=== PATIENT | male | born 1975 | race Caucasian/White ===

== ENCOUNTER 2019-03-23 02:21 | Inpatient (IN) | payer MEDICAID ==
[~2019-03-23] VITALS: Ht 177.8 cm; Wt 63.5 kg
--- NOTE | 2019-03-23 02:30 | NUR ---
ED Nurse Note: Pt walked in c/o diarrhea x 4 days, also reports bright red bleeding in stool. AO4. NAD. HYPOTENSIVE 91/56
--- NOTE | 2019-03-23 02:40 | NUR ---
ED Nurse Note: IV ACCESS ESTABLISHED. BLOOD COLLECTED; SENT DOWN TO LAB.
--- NOTE | 2019-03-23 02:46 | Emergency Room Report ---
History of Present Illness General Chief Complaint: Diarrhea Source: Patient Present Illness HPI This a 44-year-old male with a history of chronic hepatitis and HIV. He is not on any HIV medication. Does not know his CD4 count or viral load. He presents with chief complaint of diarrhea. Onset for last 4 days. Diarrhea is profuse. Initially watery and now bloody. Has abdominal cramps. No nausea no vomiting. Said he had a fever yesterday 102. No sick contact. No recent antibiotics or travel. Allergies: Coded Allergies: No Known Allergies (Unverified , 03/23/19) Patient History Past Medical History: see triage record, old chart reviewed, HIV Past Surgical History: other Pertinent Family History: none Social History: Denies: smoking Immunizations: other Reviewed Nursing Documentation: PMH: Agreed; PSxH: Agreed Nursing Documentation-PMH Past Medical History: No History, Except For Hx Cardiac Problems: No - HIV & HEP B Review of Systems Constitutional: Reports: fever Eye: Denies: eye pain, blurred vision ENT: Denies: ear pain, nose congestion, throat swelling Respiratory: Denies: cough, shortness of breath Cardiovascular: Denies: chest pain, palpitations Gastrointestinal: Reports: diarrhea; Denies: abdominal pain, nausea, vomiting Musculoskeletal: Denies: back pain, joint pain Skin: Denies: rash Neurological: Denies: headache, numbness Endocrine: Denies: increased thirst, increased urine Hematologic/Lymphatic: Denies: easy bruising All Other Systems: negative except mentioned in HPI Physical Exam Vital Signs Date Time Temp Pulse Resp B/P (MAP) Pulse Ox O2 Delivery O2 Flow Rate FiO2 03/23/19 02:27 97.5 95 18 96/62 (73) 95 Room Air Vitals with mild hypotension Sp02 EP Interpretation: reviewed, normal General Appearance: no apparent distress, alert, thin Head: normocephalic, atraumatic Eyes: bilateral eye PERRL, bilateral eye EOMI ENT: hearing grossly normal, normal pharynx Neck: full range of motion, supple, no meningismus Respiratory: chest non-tender, lungs clear, normal breath sounds Cardiovascular #1: regular rate, rhythm, no murmur Gastrointestinal: non tender, no mass, no organomegaly, no bruit, non-distended , abnormal bowel sounds - Hyperactive Genitourinary: other - Penis with balanitis Musculoskeletal: back normal, gait/station normal, normal range of motion Psychiatric: mood/affect normal Medical Decision Making Diagnostic Impression: Primary Impression: Diarrhea Qualified Codes: R19.7 - Diarrhea, unspecified Additional Impressions: ARF (acute renal failure) Qualified Codes: N17.9 - Acute kidney failure, unspecified Hypokalemia Hepatitis Balanitis ER Course This is a 44-year-old male who presents with profuse diarrhea and reported fever. Because of his weakened immune system, will treat as presumptive infectious diarrhea. I put him on antibiotics. The diarrhea is probably causing his hypokalemia. Patient better after IV fluid. Will admit for further work-up. I contacted Dr. Flores for admission. Last Vital Signs Date Time Temp Pulse Resp B/P (MAP) Pulse Ox O2 Delivery O2 Flow Rate FiO2 03/23/19 02:27 97.5 95 18 96/62 (73) 95 Room Air Status: improved Disposition: ADMITTED INPATIENT Condition: Serious Alvaro Singh MD Mar 23, 2019 02:46
[2019-03-23 03:02] VITALS: BP 91/56
--- NOTE | 2019-03-23 03:04 | NUR ---
ED Nurse Note: reportr eceived from Emerson Taylor RN. pt unable to urinate at this time, will notify Staff when he is ready to provide urine sample.
--- NOTE | 2019-03-23 03:04 | NUR ---
HAND-OFF: Report given to PONCHO LEAL. PATIENT RESTING COMFORTABLY IN BED WITH NAD. REMAINS HYPOTENSIVE BUT ASYMPTOMATIC. AO4. RESPIRATIONS EVEN AND UNLABORED. ENDORSED PENDING LABS TO RECEIVING RN; WAITING FOR PT TO PROVIDE URINE SAMPLE.
[2019-03-23 03:11] LABS: BASOPHILS % (AUTO) 0.8 % (0.0-2.0); EOSINOPHILS % (AUTO) 0.3 % (0.0-3.0); HEMATOCRIT 45.2 % (42.0-52.0); HEMOGLOBIN 14.9 G/DL (14.2-18.0); LYMPHOCYTES % (AUTO) 17.5 % (20.0-45.0); MEAN CORPUSCULAR VOLUME 75 FL (80-99); MONOCYTES % (AUTO) 12.1 % (1.0-10.0); NEUTROPHILS % (AUTO) 69.4 % (45.0-75.0); PLATELET COUNT 290 K/UL (150-450); RED BLOOD COUNT 6.04 M/UL (4.70-6.10); RED CELL DISTRIBUTION WIDTH 12.9 % (11.6-14.8); WHITE BLOOD COUNT 6.2 K/UL (4.8-10.8)
[2019-03-23 03:28] LABS: ALANINE AMINOTRANSFERASE 91 U/L (12-78); ALBUMIN 2.8 G/DL (3.4-5.0); ALBUMIN/GLOBULIN RATIO 0.4 (1.0-2.7); ALKALINE PHOSPHATASE 113 U/L (46-116); ANION GAP 15 mmol/L (5-15); ASPARTATE AMINO TRANSFERASE 81 U/L (15-37); BILIRUBIN,TOTAL 0.5 MG/DL (0.2-1.0); BLOOD UREA NITROGEN 28 mg/dL (7-18); CALCIUM 8.5 MG/DL (8.5-10.1); CARBON DIOXIDE 23 MMOL/L (21-32); CHLORIDE 96 MMOL/L (98-107); CREATININE 2.3 MG/DL (0.55-1.30); SODIUM 133 MMOL/L (136-145)
[2019-03-23 04:06] LABS: POTASSIUM 2.1 MMOL/L (3.5-5.1)
[2019-03-23 04:27] LABS: APPEARANCE,URINE CLEAR; BILIRUBIN, URINE NEGATIVE (NEGATIVE); GLUCOSE, URINE (UA) NEGATIVE (NEGATIVE); KETONES,URINE NEGATIVE (NEGATIVE); LEUKOCYTE ESTERASE ,URINE 1+ (NEGATIVE); NITRITE,URINE NEGATIVE (NEGATIVE); PH,URINE 5 (4.5-8.0); PROTEIN,URINE 2+ (NEGATIVE); UROBILINOGEN,URINE NORMAL MG/DL (0.0-1.0)
[2019-03-23 04:30] LABS: COLOR,URINE YELLOW
[2019-03-23] MEDS ORDERED: Ciprofloxacin 500mg tab ORAL ONE (04:45)
--- NOTE | 2019-03-23 05:30 | NUR ---
ED Nurse Note: pt was brought up to 203 accompanied by RN and automotive maintenance technician in stable condition. belonging list signed. Report given to PONCHO acosta
--- NOTE | 2019-03-23 05:35 | NUR ---
NURSE NOTES: Received report from PONCHO Munoz. Patient was transferred from ED to telemetry via gurney without any incident. Patient is awake, coherent, A/O x4. Denies pain at this time. No signs of acute cardiorespiratory distress noted. Checked IV site intact and patent. No erythema, bleeding or infiltration noted. Skin is intact and moist. Tele box on showing SR with latest vital signs of T98.2, HR73, RR18, BP95/57, O2 sat 100% on RA. Belongings list checked with transferring RN. Oriented to room and unit. Bed at lowest position, brakes on, siderails x 2. Call light within reach. Called Dr. Villatoro for admission orders. Awaiting callback.
--- NOTE | 2019-03-23 06:30 | NUR ---
NURSE NOTES: Received admission orders from Dr. Villatoro, noted and carried out.
--- NOTE | 2019-03-23 07:20 | NUR ---
HAND-OFF: Report given to PONCHO Wong. Plan of care endorsed.
[2019-03-23 08:00] VITALS: BP 94/54
--- NOTE | 2019-03-23 08:26 | NUR ---
NURSE NOTES:Received report from PONCHO Brandon. Patient found aox4 breathing easily on RA and NSR on telemetry. Patient finished bag of flaygyl at change of shift. Ptient oob to walk to toilet steadygait noted. NPO status (ice chip/meds allowed) in effect. Patient unawre of NPO status--informed that Dr ordered npo for his diarrhea unkown cause. Ptient stated "that's ridiculous. Florencia been in the hospital with parasites before adn I could always eat." Offered ice chips. Starting IVF with K per SEP. Cdiff to be collected when sample available. Concern for SBP in 90s, dr aware adn patient monitiored closely. Contact precautions in place for safety/pending labs Arm band placed on patient and care plan updated to include dehyd and electrolyte imbalance. Call seth in reach (instructed in use) and urinal in reach. Hat in toilet for stool collection. Bed in lowest, locked position.
[2019-03-23 08:56] LABS: HEMATOCRIT 35.4 % (42.0-52.0); HEMOGLOBIN 11.6 G/DL (14.2-18.0); MEAN CORPUSCULAR VOLUME 74 FL (80-99); PLATELET COUNT 211 K/UL (150-450); RED BLOOD COUNT 4.76 M/UL (4.70-6.10); WHITE BLOOD COUNT 3.3 K/UL (4.8-10.8)
[2019-03-23] MEDS: Acetaminophen 500mg (ES) tab ORAL PRN ×2 (09:23→16:03)
--- NOTE | 2019-03-23 09:33 | Consultation ---
History of Present Illness General Chief Complaint: Diarrhea Present Illness Allergies: Coded Allergies: No Known Allergies (Unverified , 03/23/19) Patient History Healthcare decision maker Resuscitation status Advanced Directive on File Physical Exam Last 24 Hour Vital Signs Date Time Temp Pulse Resp B/P (MAP) Pulse Ox O2 Delivery O2 Flow Rate FiO2 03/23/19 08:00 98.3 70 18 94/54 (67) 98 03/23/19 05:30 98.0 76 18 92/70 98 Room Air 03/23/19 03:02 97.5 78 18 91/56 100 Room Air 03/23/19 02:27 97.5 95 18 96/62 (73) 95 Room Air Intake and Output 03/22/19 03/23/19 18:59 06:59 Intake Total 3240 ml Balance 3240 ml Intake Oral 240 ml IV Total 3000 ml # Voids 1 Laboratory Tests Test 03/23/19 02:46 03/23/19 03:59 03/23/19 08:30 White Blood Count 6.2 K/UL (4.8-10.8) 3.3 K/UL (4.8-10.8) L Red Blood Count 6.04 M/UL (4.70-6.10) 4.76 M/UL (4.70-6.10) Hemoglobin 14.9 G/DL (14.2-18.0) 11.6 G/DL (14.2-18.0) L Hematocrit 45.2 % (42.0-52.0) 35.4 % (42.0-52.0) L Mean Corpuscular Volume 75 FL (80-99) L 74 FL (80-99) L Mean Corpuscular Hemoglobin 24.7 PG (27.0-31.0) L 24.4 PG (27.0-31.0) L Mean Corpuscular Hemoglobin Concent 33.0 G/DL (32.0-36.0) 32.8 G/DL (32.0-36.0) Red Cell Distribution Width 12.9 % (11.6-14.8) 13.0 % (11.6-14.8) Platelet Count 290 K/UL (150-450) 211 K/UL (150-450) Mean Platelet Volume 5.2 FL (6.5-10.1) L 5.2 FL (6.5-10.1) L Neutrophils (%) (Auto) 69.4 % (45.0-75.0) % (45.0-75.0) Lymphocytes (%) (Auto) 17.5 % (20.0-45.0) L % (20.0-45.0) Monocytes (%) (Auto) 12.1 % (1.0-10.0) H % (1.0-10.0) Eosinophils (%) (Auto) 0.3 % (0.0-3.0) % (0.0-3.0) Basophils (%) (Auto) 0.8 % (0.0-2.0) % (0.0-2.0) Sodium Level 133 MMOL/L (136-145) L Pending Potassium Level 2.1 MMOL/L (3.5-5.1) *L Pending Chloride Level 96 MMOL/L (98-107) L Pending Carbon Dioxide Level 23 MMOL/L (21-32) Pending Anion Gap 15 mmol/L (5-15) Blood Urea Nitrogen 28 mg/dL (7-18) H Pending Creatinine 2.3 MG/DL (0.55-1.30) H Pending Estimat Glomerular Filtration Rate 31.2 mL/min (>60) Pending Glucose Level 115 MG/DL (74-106) H Pending Lactic Acid Level 1.90 mmol/L (0.4-2.0) Calcium Level 8.5 MG/DL (8.5-10.1) Pending Total Bilirubin 0.5 MG/DL (0.2-1.0) Pending Aspartate Amino Transf (AST/SGOT) 81 U/L (15-37) H Pending Alanine Aminotransferase (ALT/SGPT) 91 U/L (12-78) H Pending Alkaline Phosphatase 113 U/L (46-116) Pending Total Protein 9.3 G/DL (6.4-8.2) H Pending Albumin 2.8 G/DL (3.4-5.0) L Pending Globulin 6.5 g/dL Pending Albumin/Globulin Ratio 0.4 (1.0-2.7) L Lipase 496 U/L (73-393) H Urine Color Yellow Urine Appearance Clear Urine pH 5 (4.5-8.0) Urine Specific [place] 1.020 (1.005-1.035) Urine Protein 2+ (NEGATIVE) H Urine Glucose (UA) Negative (NEGATIVE) Urine Ketones Negative (NEGATIVE) Urine Blood Negative (NEGATIVE) Urine Nitrite Negative (NEGATIVE) Urine Bilirubin Negative (NEGATIVE) Urine Urobilinogen Normal MG/DL (0.0-1.0) Urine Leukocyte Esterase 1+ (NEGATIVE) H Urine RBC 0 /HPF (0 - 0) Urine WBC 2-4 /HPF (0 - 0) Urine Squamous Epithelial Cells Few /LPF (NONE/OCC) Urine Bacteria Few /HPF (NONE) Urine Opiates Screen Negative (NEGATIVE) Urine Barbiturates Screen Negative (NEGATIVE) Phencyclidine (PCP) Screen Negative (NEGATIVE) Urine Amphetamines Screen Positive (NEGATIVE) H Urine Benzodiazepines Screen Negative (NEGATIVE) Urine Cocaine Screen Negative (NEGATIVE) Urine Marijuana (THC) Screen Negative (NEGATIVE) Neutrophils % (Manual) Pending Lymphocytes % (Manual) Pending Platelet Estimate Pending Platelet Morphology Pending Uric Acid Pending Phosphorus Level Pending Magnesium Level Pending Iron Level Pending Unsaturated Iron Binding Pending Ferritin Pending C-Reactive Protein, Quantitative Pending Triglycerides Level Pending Cholesterol Level Pending LDL Cholesterol Pending HDL Cholesterol Pending Cholesterol/HDL Ratio Pending Vitamin B12 Level Pending Folate Pending Microbiology Date/Time Source Procedure Growth Status 03/23/19 05:00 Nasal Nares - Final Complete 03/23/19 05:00 Nasal Nares - Final Complete 03/23/19 05:00 Nasal Nares Received Height (Feet): 5 Height (Inches): 10.00 Weight (Pounds): 145 Medications Current Medications Medications (Trade) Dose Ordered Sig/Bessie Route PRN Reason Start Time Stop Time Status Last Admin Dose Admin Acetaminophen (Tylenol) 500 mg Q4H PRN ORAL Mild Pain/Temp > 100.5 03/23/19 07:00 04/22/19 06:59 Dextrose/ Electrolytes 1,000 ml @ 75 mls/hr [id number] IV 03/23/19 08:00 04/22/19 07:59 03/23/19 09:13 Assessment/Plan Assessment/Plan: Hematology Consultation ANN MURILLO: Rhonda Villatoro DOS: 03/23/19 RFC: Leukopenia and anemia ID This a 44-year-old male with a history of chronic hepatitis and HIV. He is not on any HIV medication. Does not know his CD4 count or viral load. He presents with chief complaint of diarrhea. Onset for last 4 days. Diarrhea is profuse. Initially watery and now bloody. Has abdominal cramps. No nausea no vomiting. Said he had a fever yesterday 102. No sick contact. No recent antibiotics or travel. Noted to have a decreased wbc and heme was consulted. All: No Known Allergies (Unverified , 03/23/19) Past Medical History: see triage record, old chart reviewed, HIV Past Surgical History: other Pertinent Family History: none Social History: Denies: smoking Immunizations: other Reviewed Nursing Documentation: PMH: Agreed; PSxH: Agreed Nursing Documentation-PMH Past Medical History: No History, Except For Hx Cardiac Problems: No - HIV & HEP B Review of Systems Constitutional: Reports: fever Eye: Denies: eye pain, blurred vision ENT: Denies: ear pain, nose congestion, throat swelling Respiratory: Denies: cough, shortness of breath Cardiovascular: Denies: chest pain, palpitations Gastrointestinal: Reports: diarrhea; No abdominal pain, nausea, vomiting Musculoskeletal: Denies: back pain, joint pain Skin: Denies: rash Neurological: Denies: headache, numbness Endocrine: Denies: increased thirst, increased urine Hematologic/Lymphatic: Denies: easy bruising Physical Exam Vitals with mild hypotension improved Gen: not in acute distress Pulm: CTAB CV: rrr, no mgr GI: nontender, nondistended MSKL normal rom Psychiatric: mood/affect normal Labs: noted Imaging: noted Assessment and Recs: # Leukopenia -- decreased wbc on admission, no historical studies to compare, likely due to hx hepatitis B and hiv as well, contributors --> trend as needed wbc 3.3 --> ANC goal is >1500 --> hepatitis and HIV have been ordered --> abd us ordered as well --> neupogen to be given on prn basis # Anemia due to chronic disease --> due to hep and hiv --> trend as needed 11 --> hold off on epo or iron # Diarrhea cause of low k --> r/o infectious causes, stool o&p ==> abx as needed per id # ARF (acute renal failure) --> on ivf as needed # Hypokalemia --> replete with K as needed # Balanitis --> uro recs prn Time of note does not correspond to time patient was seen Greatly appreciate consultation. Elian Kessler MD Mar 23, 2019 09:33
[2019-03-23 09:40] LABS: ALANINE AMINOTRANSFERASE 70 U/L (12-78); ALBUMIN 2.1 G/DL (3.4-5.0); ALBUMIN/GLOBULIN RATIO 0.4 (1.0-2.7); ALKALINE PHOSPHATASE 84 U/L (46-116); ANION GAP 12 mmol/L (5-15); ASPARTATE AMINO TRANSFERASE 60 U/L (15-37); BILIRUBIN,TOTAL 0.4 MG/DL (0.2-1.0); BLOOD UREA NITROGEN 25 mg/dL (7-18); CALCIUM 7.6 MG/DL (8.5-10.1); CARBON DIOXIDE 21 MMOL/L (21-32); CHLORIDE 102 MMOL/L (98-107); CHOLESTEROL 58 MG/DL (< 200); CREATININE 1.7 MG/DL (0.55-1.30); FERRITIN 202 NG/ML (8-388); HDL CHOLESTEROL 19 MG/DL (40-60); PHOSPHORUS 2.8 MG/DL (2.5-4.9); POTASSIUM 2.7 MMOL/L (3.5-5.1); SODIUM 135 MMOL/L (136-145); TRIGLYCERIDES 53 MG/DL (30-150)
[2019-03-23 09:54] LABS: % IRON SATURATION 11 % (15-50); IRON 14 ug/dL (50-175); TOTAL IRON BINDING CAPACITY 130 ug/dL (250-450)
--- NOTE | 2019-03-23 10:53 | GI Initial Consult Note ---
History of Present Illness General Date patient seen: Mar 23, 2019 Time patient seen: 10:47 Reason for Hospitalization: Diarrhea Referring physician: WILLY CASTRO Reason for Consultation: DIARRHEA Present Illness HPI This a 44-year-old male with a history of chronic hepatitis and HIV. He is not on any HIV medication. Does not know his CD4 count or viral load. He presents with chief complaint of diarrhea. Onset for last 4 days. Diarrhea is profuse. Initially watery and now bloody. Has abdominal cramps. No nausea no vomiting. Said he had a fever yesterday 102. No sick contact. No recent antibiotics or travel. GI consulted for persistent diarrhea. Patient seen, awake alert oriented x4 no apparent distress with no active signs or symptoms of nausea vomiting. Patient reports severe persistent diarrhea for approximately 3 days. At times patient noted that he saw streaks of blood in his stool. The patient denied any recurrent diarrhea over the past few months. He did admit a history of drug use , but stated he has been clean for years. Abdomen is soft, nondistended, nontender to all quadrants. Labs reviewed; sodium 135, potassium 2.7, iron saturation of 11, AST of 60, hemoglobin 11.6, urine toxicity positive for amphetamines. No history of endoscopic or colonoscopy. The patient denies any recent travels or dietary changes. Med list reviewed/reconciled: Yes Allergies: Coded Allergies: No Known Allergies (Unverified , 03/23/19) Patient History History Provided By: Patient, Medical Record PMH Narrative Past Medical History: see triage record, old chart reviewed, HIV Past Surgical History: other Pertinent Family History: none Social History: Denies: smoking Immunizations: other Reviewed Nursing Documentation: PMH: Agreed; PSxH: Agreed Nursing Documentation-PM Past Medical History: No History, Except For Hx Cardiac Problems: No - HIV & HEP B Social History: Reports: drug use Review of Systems All Other Systems: negative except mentioned in HPI Physical Exam Vital Signs Date Time Temp Pulse Resp B/P (MAP) Pulse Ox O2 Delivery O2 Flow Rate FiO2 03/23/19 02:27 97.5 95 18 96/62 (73) 95 Room Air Sp02 EP Interpretation: reviewed, normal Labs Laboratory Tests Test 03/23/19 00:00 03/23/19 02:46 03/23/19 03:59 03/23/19 08:30 HIV-1 Antibody Pending HIV-2 Antibody Pending White Blood Count 6.2 K/UL (4.8-10.8) 3.3 K/UL (4.8-10.8) L Red Blood Count 6.04 M/UL (4.70-6.10) 4.76 M/UL (4.70-6.10) Hemoglobin 14.9 G/DL (14.2-18.0) 11.6 G/DL (14.2-18.0) L Hematocrit 45.2 % (42.0-52.0) 35.4 % (42.0-52.0) L Mean Corpuscular Volume 75 FL (80-99) L 74 FL (80-99) L Mean Corpuscular Hemoglobin 24.7 PG (27.0-31.0) L 24.4 PG (27.0-31.0) L Mean Corpuscular Hemoglobin Concent 33.0 G/DL (32.0-36.0) 32.8 G/DL (32.0-36.0) Red Cell Distribution Width 12.9 % (11.6-14.8) 13.0 % (11.6-14.8) Platelet Count 290 K/UL (150-450) 211 K/UL (150-450) Mean Platelet Volume 5.2 FL (6.5-10.1) L 5.2 FL (6.5-10.1) L Neutrophils (%) (Auto) 69.4 % (45.0-75.0) % (45.0-75.0) Lymphocytes (%) (Auto) 17.5 % (20.0-45.0) L % (20.0-45.0) Monocytes (%) (Auto) 12.1 % (1.0-10.0) H % (1.0-10.0) Eosinophils (%) (Auto) 0.3 % (0.0-3.0) % (0.0-3.0) Basophils (%) (Auto) 0.8 % (0.0-2.0) % (0.0-2.0) Sodium Level 133 MMOL/L (136-145) L 135 MMOL/L (136-145) L Potassium Level 2.1 MMOL/L (3.5-5.1) *L 2.7 MMOL/L (3.5-5.1) *L Chloride Level 96 MMOL/L (98-107) L 102 MMOL/L (98-107) Carbon Dioxide Level 23 MMOL/L (21-32) 21 MMOL/L (21-32) Anion Gap 15 mmol/L (5-15) 12 mmol/L (5-15) Blood Urea Nitrogen 28 mg/dL (7-18) H 25 mg/dL (7-18) H Creatinine 2.3 MG/DL (0.55-1.30) H 1.7 MG/DL (0.55-1.30) H Estimat Glomerular Filtration Rate 31.2 mL/min (>60) 44.2 mL/min (>60) Glucose Level 115 MG/DL (74-106) H 108 MG/DL (74-106) H Lactic Acid Level 1.90 mmol/L (0.4-2.0) Calcium Level 8.5 MG/DL (8.5-10.1) 7.6 MG/DL (8.5-10.1) L Total Bilirubin 0.5 MG/DL (0.2-1.0) 0.4 MG/DL (0.2-1.0) Aspartate Amino Transf (AST/SGOT) 81 U/L (15-37) H 60 U/L (15-37) H Alanine Aminotransferase (ALT/SGPT) 91 U/L (12-78) H 70 U/L (12-78) Alkaline Phosphatase 113 U/L (46-116) 84 U/L (46-116) Total Protein 9.3 G/DL (6.4-8.2) H 7.0 G/DL (6.4-8.2) Albumin 2.8 G/DL (3.4-5.0) L 2.1 G/DL (3.4-5.0) L Globulin 6.5 g/dL 4.9 g/dL Albumin/Globulin Ratio 0.4 (1.0-2.7) L 0.4 (1.0-2.7) L Lipase 496 U/L (73-393) H Urine Color Yellow Urine Appearance Clear Urine pH 5 (4.5-8.0) Urine Specific [place] 1.020 (1.005-1.035) Urine Protein 2+ (NEGATIVE) H Urine Glucose (UA) Negative (NEGATIVE) Urine Ketones Negative (NEGATIVE) Urine Blood Negative (NEGATIVE) Urine Nitrite Negative (NEGATIVE) Urine Bilirubin Negative (NEGATIVE) Urine Urobilinogen Normal MG/DL (0.0-1.0) Urine Leukocyte Esterase 1+ (NEGATIVE) H Urine RBC 0 /HPF (0 - 0) Urine WBC 2-4 /HPF (0 - 0) Urine Squamous Epithelial Cells Few /LPF (NONE/OCC) Urine Bacteria Few /HPF (NONE) Urine Opiates Screen Negative (NEGATIVE) Urine Barbiturates Screen Negative (NEGATIVE) Phencyclidine (PCP) Screen Negative (NEGATIVE) Urine Amphetamines Screen Positive (NEGATIVE) H Urine Benzodiazepines Screen Negative (NEGATIVE) Urine Cocaine Screen Negative (NEGATIVE) Urine Marijuana (THC) Screen Negative (NEGATIVE) Differential Total Cells Counted 100 Neutrophils % (Manual) 59 % (45-75) Lymphocytes % (Manual) 24 % (20-45) Monocytes % (Manual) 15 % (1-10) H Eosinophils % (Manual) 1 % (0-3) Basophils % (Manual) 1 % (0-2) Band Neutrophils 0 % (0-8) Platelet Estimate Adequate Platelet Morphology Normal Anisocytosis 1+ Microcytosis 1+ Uric Acid 7.2 MG/DL (2.6-7.2) Phosphorus Level 2.8 MG/DL (2.5-4.9) Magnesium Level 2.0 MG/DL (1.8-2.4) Iron Level 14 ug/dL (50-175) L Total Iron Binding Capacity 130 ug/dL (250-450) L Percent Iron Saturation 11 % (15-50) L Unsaturated Iron Binding 116 ug/dL (112-346) Ferritin 202 NG/ML (8-388) C-Reactive Protein, Quantitative 12.3 mg/dL (0.00-0.90) H Triglycerides Level 53 MG/DL (30-150) Cholesterol Level 58 MG/DL (< 200) LDL Cholesterol 32 mg/dL (<100) HDL Cholesterol 19 MG/DL (40-60) L Cholesterol/HDL Ratio 3.1 (3.3-4.4) L Vitamin B12 Level 1723 PG/ML (193-986) H Folate 14.3 NG/ML (8.6-58.9) Hepatitis A IgM Antibody Pending Hepatitis B Surface Antigen Pending Hepatitis B Core IgM Antibody Pending Hepatitis C Antibody Pending HIV (1&2) Antibody Rapid Preliminary positive General Appearance: well appearing, no apparent distress, alert Head: normocephalic EENT: PERRL/EOMI, normal ENT inspection Neck: supple Respiratory: normal breath sounds, no respiratory distress Cardiovascular: normal rate Gastrointestinal: normal inspection, non tender, soft, normal bowel sounds, non -distended Rectal: deferred Genitourinary: deferred Musculoskeletal: normal inspection, back normal Neurologic: normal inspection, alert, oriented x3, responsive Psychiatric: normal inspection, judgement/insight normal, memory normal Skin: normal inspection, normal color, no rash, warm/dry, palpation normal, well hydrated Lymphatic: normal inspection, no adenopathy Current Medications Current Medications Medications (Trade) Dose Ordered Sig/Bessie Route PRN Reason Start Time Stop Time Status Last Admin Dose Admin Acetaminophen (Tylenol) 500 mg Q4H PRN ORAL Mild Pain/Temp > 100.5 03/23/19 07:00 04/22/19 06:59 Ciprofloxacin (Cipro 250mg tab) 250 mg EVERY 12 HOURS ORAL 03/23/19 21:00 03/30/19 20:59 Dextrose/ Electrolytes 1,000 ml @ 75 mls/hr [id number] IV 03/23/19 08:00 04/22/19 07:59 03/23/19 09:13 Metronidazole (Flagyl) 500 mg Q8HR ORAL 03/23/19 14:00 03/30/19 13:59 GI: Plan Problems: (1) Dehydration (2) Electrolyte imbalance (3) Amphetamine abuse (4) Diarrhea (5) Hepatitis Plan Urine toxicity positive for amphetamines Sent for C. difficile and stool culture Okay to advance diet as tolerated after US Electrolyte correction IV and p.o. hydration OB stool r/o GI bleed H2B zofran prn Will consider Imodium as needed after microbiology study follow labs Discussed with Dr. Fry. Thank you for this patient referral, we will follow. The patient was seen and examined at bedside and all new and available data was reviewed in the patients chart. I agree with the above findings, impression and plan. (Patient seen earlier today. Signature stamp does not reflect patient encounter time.). - MD Samantha HernandezWinslow Indian [facility] BREAD OVEN OPERATOR Mar 23, 2019 10:53
--- NOTE | 2019-03-23 11:31 | NUR ---
NURSE NOTES: Crit low potassium( 2.7 now, trended up from 2.1 at admit)--notified Dr Rushing in person for admit value (830am)adn then called & left message for f/u lab (10am see flowsheet). Dr Brown in room to assess patient--notifed of low potassium and received verbal confirmation to continue with IVF as ordered but hold off on giving any more potassium today to avoid overloading patient (in light of his receiving 70meq since ER). Cdiff adn culture sent for liquid stool. Dr Brown aware of patient report of occasional red color of stool. Result pending. Patient on cdiff precautions. Dr Brown advised patient to remain NPO until after Abd scan finished, after which time patient may be upgraded to regular diet. Addendum: 03/23/19 at 1139 by Osbaldo Levine RN 1130am: called rad and u/s dept to enquire estimated time of test but unable to reach. Previously received call that they were coming to do the scan. Patient remains NPO Addendum: 03/23/19 at 2021 by Osbaldo Levine RN Patient co burning with IV potassium administration to hand --new IV site obtained and rate slowed but patient continued to co pain with iv. Called Dr Sheridan office to ask for possible change to po, but did not want order changed and so cont'd with IV admin of potassium. No sign of redness or infiltration at either IV site with clean, dry, intact insertion sites. Ice and tylenol provided for pain control along with pillow supports. Luis Angel stated "I understand I need this, but I have had potassium before and it never hurt". Multiple checks on patient and patient was willing and able to tolerate the IV administration at slower rate. Called Dr Millan's office to inform that patient only able to tolerate rate of 50mls per hour (instead of ordered 100 mls per hour) even with dilution with MAR ordered IVFluids. This RN was told that if janett longer administration time was problematic, the Dr would call back to let us know. No call received and cont'd with administration. At 730pm (along with night RNLuiz,, entrered room to check patient and patient stated "I turned off the pumps, it was hurting too much" PONCHO Dee assumed care of patient.
--- NOTE | 2019-03-23 12:03 | NUR ---
RADIOLOGY DEPT., CHEST X-RAY DONE.-P.DYE
--- NOTE | 2019-03-23 13:04 | Diagnostic Imaging Report ---
Indication: Cough Technique: One view of the chest Comparison: none Findings: Lungs and pleural spaces are clear. Heart size is normal Impression: No acute process
--- NOTE | 2019-03-23 13:08 | Consultation ---
Consult Note Consult Note asked to evaluate the patient at the request of Dr Villatoro Patient seen in 2E- Interviewed examined data reviewed ER: This a 44-year-old male with a history of chronic hepatitis and HIV. He is not on any HIV medication. Does not know his CD4 count or viral load. He presents with chief complaint of diarrhea. Onset for last 4 days. Diarrhea is profuse. Initially watery and now bloody. Has abdominal cramps. No nausea no vomiting. Said he had a fever yesterday 102. No sick contact. No recent antibiotics or travel. No Known Allergies (Unverified , 03/23/19) Past Medical History: No History, Except For Hx Cardiac Problems: No - HIV & HEP B . . Assessment/Plan Acute Renal Failure- Dehydration Persistant Diarrhea HIV status and Hep B Electrolyte Imbalance urine + for amphetamins Hydrate- Aim to correct k and Phos and Mag Monitor renal parameters Avoid Nephrotoxics Per Orders Rob Millan MD Mar 23, 2019 13:08
--- NOTE | 2019-03-23 14:39 | Diagnostic Imaging Report ---
Indication: Abdominal pain, abnormal liver function tests and renal function tests Technique: Waterman-scale and duplex images of the upper abdomen were obtained Comparison: Findings: Gallbladder is unremarkable, without stones, wall thickening, nor pericholecystic fluid. Sonographic Celestin's sign is negative. Common bile duct measures 3 mm in diameter. No intrahepatic biliary ductal dilatation. Liver demonstrates normal echogenicity, no focal abnormality. It appears enlarged, however. Portal vein and hepatic veins are patent. Pancreas is unremarkable. The spleen is enlarged, measuring 14 cm long axis dimension. There is a small accessory splenule within the splenic hilum. Left kidney measures cm in length. Right kidney measures 11.4 cm length. Both kidneys demonstrate normal echogenicity. There is no hydronephrosis. Right kidney demonstrates an 11 mm cyst . Non-aneurysmal abdominal aorta . Impression: Negative for gallstones or dilated bile ducts Hepatomegaly Splenomegaly Small right renal cyst incidentally noted
--- NOTE | 2019-03-23 15:41 | NUR ---
CASE MANAGEMENT:REVIEW 44 YR OLD MALE PRESENTED TO ER CC: DIARRHEA WITH BRIGHT RED BLOOD SI: INFECTIOUS DIARRHEA BALANITIS. ACUTE RENAL FAILURE. HEPATITIS. HYPOKALEMIA 97.5 95 18 96/62 95% ON RA K-2.1 BUN+28 CR+2.3 IS: 1L NS BOLUS X2 KCL PO IV KCL : TO TELEMETRY INTERQUAL CRITERIA MET
[2019-03-23] MEDS: metroNIDAZOLE 500mg tab ORAL SCH ×2 (16:09→22:00)
--- NOTE | 2019-03-23 17:00 | Consultation ---
DATE OF CONSULTATION: 03/23/2019 INFECTIOUS DISEASE CONSULTATION CONSULTING PHYSICIAN: Sarwat Yen M.D. PRIMARY ATTENDING: Beth Sanchez M.D. REASON FOR CONSULT: Diarrhea, HIV. HISTORY OF PRESENT ILLNESS: This is a 44-year-old male admitted this morning complaining of diarrhea for 4 days, sometimes with blood in it. Had abdominal pain and cramps, but currently it is resolved. Reported a fever of 102 at home. In hospital, he was found to have acute renal failure and hypokalemia. PAST MEDICAL HISTORY: HIV since age of 18. The patient does not take the medication for 1 year. Does not know the CD4 count. Has history of hepatitis B. ALLERGIES: No known drug allergies. MEDICATIONS: Flagyl, Cipro, potassium chloride in the ER. SOCIAL HISTORY: Denied alcohol, drug abuse, or smoking. Single. REVIEW OF SYSTEMS: No fever today. No report of weight loss. No coughing. No nausea. No vomiting. No abdominal pain today. No problem passing urine. PHYSICAL EXAMINATION: VITAL SIGNS: Temperature 98.3, pulse 70, blood pressure 94/54. HEENT: Seems to be thin. HEAD AND NECK: [place] conjunctivae. Slightly whitish tongue. HEART: S1-S2 regular. LUNGS: Clear. ABDOMEN: Soft, scaphoid, nontender. EXTREMITIES: No edema. NEUROLOGIC: Awake, alert, oriented x3. LABORATORY AND DIAGNOSTIC DATA: Sodium 135, potassium 2.7, chloride 102, bicarb 21, BUN 25, creatinine 1.7, glucose 108. Albumin is 2.1. AST and ALT were elevated at the time of admission 81 and 91. AST still elevated, but ALT was back to normal. Urine toxicology is positive for amphetamine. Hepatitis panel is pending. UA was negative for nitrite, 1+ leukocyte esterase. IMPRESSION: Diarrhea, likely infectious. The patient has HIV, unknown stage likely with AIDS. Has acute renal failure, hypokalemia, history of hepatitis, amphetamine abuse. RECOMMENDATION: We will continue with Cipro, Flagyl. We will ask for chest x-ray. We will ask for CD4 count. We will ask for stool cultures. At the end of my exam, I thank Dr. Sanchez for involving me in the care of this patient. Sarwat Yen M.D. DR: NORMA JOB#: [id number] CC: HELDER
--- NOTE | 2019-03-23 19:15 | History and Physical Report ---
DATE OF ADMISSION: 03/23/2019 HISTORY OF PRESENT ILLNESS: The patient is admitted for infectious diarrhea and acute renal failure. Has history of hepatitis B and HIV. The patient is not taking any medications. The patient also has severe hypokalemia. Acute renal failure, most likely due to diarrhea. The patient claims that he has history of HIV as well as hepatitis B. The patient had fever and chills and diarrhea for 5 days. Denies abdominal pain. Denies shortness of breath. Denies cough. PAST MEDICAL HISTORY: HIV, hepatitis B. PAST SURGICAL HISTORY: None. SOCIAL HISTORY: History of smoking. History of drug abuse. No history of alcohol abuse. MEDICATIONS: Does not take any. ALLERGIES: No known allergies. FAMILY HISTORY: Noncontributory. REVIEW OF SYSTEMS: HEENT: Denies headaches. RESPIRATORY: Denies shortness of breath. Denies cough. CARDIOVASCULAR: Denies chest pain. GASTROINTESTINAL: diarrhea. EXTREMITIES: Denies any pain in the extremities. CENTRAL NERVOUS SYSTEM: Denies change in vision or speech pattern. PHYSICAL EXAMINATION: VITAL SIGNS: Temperature 97.5, pulse is 95, blood pressure is 96/62. HEENT: PERRLA. NECK: Supple. No lymphadenopathy. CHEST: Clear to auscultation. CARDIOVASCULAR: Regular rate and rhythm. No murmurs or extra sounds. GASTROINTESTINAL: Soft, nontender, nondistended. No organomegaly. EXTREMITIES: No edema. Moves all four extremities. NEUROLOGIC: Sensory intact to light touch. Reflexes on both sides. Moves all four extremities. LABORATORY DATA: WBC of 6.3, hemoglobin 14.9, platelets of 290. Sodium 133, potassium of 2.1, BUN of 28, creatinine of 3.2, glucose of 160. ASSESSMENT AND PLAN: Infectious diarrhea. The patient has HIV, history of hepatitis, low potassium. The patient also has low potassium, most likely due to diarrhea and also has acute renal failure due to dehydration due to diarrhea. Again, HIV, diarrhea, rule out infectious diarrhea, electrolyte imbalance, hypokalemia, acute renal failure. I have asked Dr. Millan, Dr. Sarwat Yen, Dr. Fry to see the patient to treat and help with the management of the above-mentioned diagnoses. Ali Ashley Sanchez DR: ANIL JOB#: [id number] CC:
--- NOTE | 2019-03-23 19:30 | NUR ---
NURSE NOTES: Received report from PONCHO Kuhn. Patient in bed awake showing no signs of acute distress. AOx4 Respiration even and non labored on room air. No sob noted. IV patent and intact. Bed in lowest position, wheels locked and alarm on. Call button within reach. All needs attended and met. Will continue plan of care.
[2019-03-24] VITALS: BP 86/52
--- NOTE | 2019-03-24 00:30 | NUR ---
NURSE NOTES: Pt. Left arm was edematous and pt. c/o pain, IV fluids was stopped. Advised pt. to start IV access on right arm, pt. agreed but asked if he can rest for a moment.
[2019-03-24 04:00] VITALS: BP 84/48
--- NOTE | 2019-03-24 04:30 | NUR ---
NURSE NOTES: Attempted to start an IV access on right arm but unsuccessful. Vein finder was used, still unsuccessful even with 2 experienced RNs. Pt. refused to have another attempt to start an IV access due to pain and requesting to get an oral medication instead. Pt. stated that he doesn't have an episode of BM last night and insist to have oral meds. instead. Will call Dr. Sanchez regarding pt. situation.
[2019-03-24 06:42] LABS: HEMATOCRIT 33.6 % (42.0-52.0); HEMOGLOBIN 10.9 G/DL (14.2-18.0); MEAN CORPUSCULAR VOLUME 75 FL (80-99); PLATELET COUNT 221 K/UL (150-450); RED CELL DISTRIBUTION WIDTH 12.7 % (11.6-14.8); WHITE BLOOD COUNT 2.7 K/UL (4.8-10.8)
[2019-03-24] MEDS: metroNIDAZOLE 500mg tab ORAL SCH ×3 (07:00→22:12)
[2019-03-24 07:17] LABS: ALANINE AMINOTRANSFERASE 74 U/L (12-78); ALBUMIN 1.9 G/DL (3.4-5.0); ALBUMIN/GLOBULIN RATIO 0.4 (1.0-2.7); ALKALINE PHOSPHATASE 92 U/L (46-116); ANION GAP 10 mmol/L (5-15); ASPARTATE AMINO TRANSFERASE 74 U/L (15-37); BILIRUBIN,TOTAL 0.2 MG/DL (0.2-1.0); BLOOD UREA NITROGEN 21 mg/dL (7-18); CALCIUM 7.8 MG/DL (8.5-10.1); CARBON DIOXIDE 23 MMOL/L (21-32); CHLORIDE 107 MMOL/L (98-107); CREATININE 1.5 MG/DL (0.55-1.30); SODIUM 140 MMOL/L (136-145)
[2019-03-24 07:20] LABS: POTASSIUM 2.7 MMOL/L (3.5-5.1)
[2019-03-24 07:30] LABS: PHOSPHORUS 2.7 MG/DL (2.5-4.9)
--- NOTE | 2019-03-24 07:42 | NUR ---
HAND-OFF: Report given to PONCHO Blackwell.
--- NOTE | 2019-03-24 07:43 | NUR ---
NURSE NOTES: Nurse report givem by PONCHO Dee. Patient's resting in bed, AO x 4, denies pain, s/s of SOB or distress, denies dizziness. Bed at lowest position, call light within reach, break engaged, side rails x 2, on contact precaution. IV sites are saline lock on the Left but the arm is swollen and patient complains pain at site. Patient refused to get another IV insertion. Potassium is 2.7, reported by Jane from Laboratory. Will contact physicians and will continue to monitor closely. Sinus rhythm at 65 from quality assurance monitor body.
[2019-03-24 08:00] VITALS: BP 85/50
[2019-03-24] MEDS: Spironolactone 25mg tab ORAL SCH (08:47)
--- NOTE | 2019-03-24 08:55 | Consultation ---
History of Present Illness General Chief Complaint: Diarrhea Referring physician: WILLY CASTRO Reason for Consultation: DIARRHEA Present Illness Allergies: Coded Allergies: No Known Allergies (Unverified , 03/23/19) Patient History Healthcare decision maker Resuscitation status Full Code Advanced Directive on File Physical Exam Last 24 Hour Vital Signs Date Time Temp Pulse Resp B/P (MAP) Pulse Ox O2 Delivery O2 Flow Rate FiO2 03/24/19 08:00 98.4 62 20 85/50 (62) 99 03/24/19 04:00 97.0 63 18 84/48 (60) 100 03/24/19 04:00 66 03/24/19 00:00 53 03/24/19 00:00 97.3 56 20 86/52 (63) 99 03/23/19 21:00 Room Air 03/23/19 20:00 62 03/23/19 16:00 70 03/23/19 12:00 56 03/23/19 09:00 Room Air Intake and Output 03/23/19 03/24/19 18:59 06:59 Intake Total 740 ml 600 ml Balance 740 ml 600 ml Intake Oral 740 ml 600 ml # Voids 5 2 # Bowel Movements 6 1 Laboratory Tests Test 03/24/19 05:30 White Blood Count Pending Red Blood Count 4.50 M/UL (4.70-6.10) L Hemoglobin 10.9 G/DL (14.2-18.0) L Hematocrit 33.6 % (42.0-52.0) L Mean Corpuscular Volume 75 FL (80-99) L Mean Corpuscular Hemoglobin 24.3 PG (27.0-31.0) L Mean Corpuscular Hemoglobin Concent 32.5 G/DL (32.0-36.0) Red Cell Distribution Width 12.7 % (11.6-14.8) Platelet Count 221 K/UL (150-450) Mean Platelet Volume 5.1 FL (6.5-10.1) L Neutrophils (%) (Auto) % (45.0-75.0) Lymphocytes (%) (Auto) % (20.0-45.0) Monocytes (%) (Auto) % (1.0-10.0) Eosinophils (%) (Auto) % (0.0-3.0) Basophils (%) (Auto) % (0.0-2.0) Differential Total Cells Counted 100 Neutrophils % (Manual) 55 % (45-75) Lymphocytes % (Manual) 38 % (20-45) Monocytes % (Manual) 5 % (1-10) Eosinophils % (Manual) 2 % (0-3) Basophils % (Manual) 0 % (0-2) Band Neutrophils 0 % (0-8) Lymphocytes Pending Platelet Estimate Adequate Platelet Morphology Normal Microcytosis 1+ Sodium Level 140 MMOL/L (136-145) Potassium Level 2.7 MMOL/L (3.5-5.1) *L Chloride Level 107 MMOL/L (98-107) Carbon Dioxide Level 23 MMOL/L (21-32) Anion Gap 10 mmol/L (5-15) Blood Urea Nitrogen 21 mg/dL (7-18) H Creatinine 1.5 MG/DL (0.55-1.30) H Estimat Glomerular Filtration Rate 51.1 mL/min (>60) Glucose Level 113 MG/DL (74-106) H Uric Acid 5.6 MG/DL (2.6-7.2) Calcium Level 7.8 MG/DL (8.5-10.1) L Phosphorus Level 2.7 MG/DL (2.5-4.9) Magnesium Level 2.2 MG/DL (1.8-2.4) Total Bilirubin 0.2 MG/DL (0.2-1.0) Aspartate Amino Transf (AST/SGOT) 74 U/L (15-37) H Alanine Aminotransferase (ALT/SGPT) 74 U/L (12-78) Alkaline Phosphatase 92 U/L (46-116) C-Reactive Protein, Quantitative 11.1 mg/dL (0.00-0.90) H Pro-B-Type Natriuretic Peptide 177 pg/mL (0-125) H Total Protein 6.8 G/DL (6.4-8.2) Albumin 1.9 G/DL (3.4-5.0) L Globulin 4.9 g/dL Albumin/Globulin Ratio 0.4 (1.0-2.7) L Lipase 951 U/L (73-393) H Cortisol AM Sample Pending Percent CD3 Cells Pending Absolute CD3 Count Pending Percent CD4 Cells Pending Absolute CD4 Count Pending T-Lymphocyte CD4/CD8 Ratio Pending Percent CD8 Cells Pending Absolute CD8 Count Pending Height (Feet): 5 Height (Inches): 10.00 Weight (Pounds): 140 Medications Current Medications Medications (Trade) Dose Ordered Sig/Bessie Route PRN Reason Start Time Stop Time Status Last Admin Dose Admin Acetaminophen (Tylenol) 500 mg Q4H PRN ORAL Mild Pain/Temp > 100.5 03/23/19 07:00 04/22/19 06:59 03/23/19 16:03 Ciprofloxacin (Cipro 250mg tab) 250 mg EVERY 12 HOURS ORAL 03/23/19 21:00 03/30/19 20:59 03/24/19 08:46 Dextrose/ Electrolytes 1,000 ml @ 100 mls/hr Q10H IV 03/24/19 09:00 04/23/19 08:59 Metronidazole (Flagyl) 500 mg Q8HR ORAL 03/23/19 14:00 03/30/19 13:59 03/24/19 07:00 Pantoprazole (Protonix) 40 mg EVERY 12 HOURS ORAL 03/23/19 21:00 04/22/19 20:59 03/24/19 08:46 Potassium Chloride (K-Dur) 40 meq THREE TIMES A DAY ORAL 03/24/19 09:00 04/23/19 08:59 03/24/19 08:46 Spironolactone (Aldactone) 25 mg DAILY ORAL 03/24/19 09:00 04/23/19 08:59 Assessment/Plan Assessment/Plan: Hematology Consultation RESandoval MD: Rhonda Villatoro DOS: 03/23/19 RFC: Leukopenia and anemia ID This a 44-year-old male with a history of chronic hepatitis and HIV. He is not on any HIV medication. Does not know his CD4 count or viral load. He presents with chief complaint of diarrhea. Onset for last 4 days. Diarrhea is profuse. Initially watery and now bloody. Has abdominal cramps. No nausea no vomiting. Said he had a fever yesterday 102. No sick contact. No recent antibiotics or travel. Noted to have a decreased wbc and heme was consulted. All: No Known Allergies (Unverified , 03/23/19) Past Medical History: see triage record, old chart reviewed, HIV Past Surgical History: other Pertinent Family History: none Social History: Denies: smoking Immunizations: other Reviewed Nursing Documentation: PMH: Agreed; PSxH: Agreed Nursing Documentation-PMH Past Medical History: No History, Except For Hx Cardiac Problems: No - HIV & HEP B Review of Systems Constitutional: Reports: fever Eye: Denies: eye pain, blurred vision ENT: Denies: ear pain, nose congestion, throat swelling Respiratory: Denies: cough, shortness of breath Cardiovascular: Denies: chest pain, palpitations Gastrointestinal: Reports: diarrhea; No abdominal pain, nausea, vomiting Musculoskeletal: Denies: back pain, joint pain Skin: Denies: rash Neurological: Denies: headache, numbness Endocrine: Denies: increased thirst, increased urine Hematologic/Lymphatic: Denies: easy bruising Physical Exam Vitals with mild hypotension improved Gen: not in acute distress Pulm: CTAB CV: rrr, no mgr GI: nontender, nondistended MSKL normal rom Psychiatric: mood/affect normal Labs: noted Imaging: noted Assessment and Recs: # Leukopenia -- decreased wbc on admission, no historical studies to compare, likely due to hx hepatitis B and hiv as well, contributors --> trend as needed wbc 3.3 --> ANC goal is >1500 --> hepatitis and HIV have been ordered --> abd us ordered as well --> neupogen to be given on prn basis # Anemia due to chronic disease --> due to hep and hiv --> trend as needed 11 --> hold off on epo or iron # Diarrhea cause of low k --> r/o infectious causes, stool o&p ==> abx as needed per id # ARF (acute renal failure) --> on ivf as needed # Hypokalemia --> replete with K as needed # Balanitis --> uro recs prn Time of note does not correspond to time patient was seen Greatly appreciate consultation. Elian Kessler MD Mar 24, 2019 08:55
--- NOTE | 2019-03-24 08:58 | Hematology/Onc Progress Note ---
Assessment/Plan Assessment/Plan Assessment and Recs: # Leukopenia -- decreased wbc on admission, no historical studies to compare, likely due to hx hepatitis B and hiv as well, contributors as well as splenomegaly++ --> trend as needed wbc 3.3-->2.7 --> ANC goal is >1500 --> abd us ordered as well in fact does show large spleen and hepatomegaly --> neupogen to be given on prn basis # Anemia due to chronic disease --> due to hep and hiv --> trend as needed 11-->10.6 --> hold off on epo or iron --> no hemolysis noted # Diarrhea cause of low k --> r/o infectious causes, stool o&p ==> abx as needed per id (flagyl) # ARF (acute renal failure) --> on ivf as needed # Hypokalemia --> replete with K as needed # Balanitis --> uro recs prn Time of note does not correspond to time patient was seen Greatly appreciate consultation. Subjective Constitutional: Denies: no symptoms, chills, fever, malaise, weakness, other HEENT: Denies: no symptoms, eye pain, blurred vision, tearing, double vision, ear pain, ear discharge, nose pain, nose congestion, throat pain, throat swelling, mouth pain, mouth swelling, other Cardiovascular: Denies: no symptoms, chest pain, edema, irregular heart rate, lightheadedness, palpitations, syncope, other Respiratory: Denies: no symptoms, cough, shortness of breath, SOB with excertion, SOB at rest, sputum, wheezing, other Gastrointestinal/Abdominal: Denies: no symptoms, abdomen distended, abdominal pain, black stools, tarry stools, blood in stool, constipated, diarrhea, difficulty swallowing, nausea, poor appetite, poor fluid intake, rectal bleeding , vomiting, other Genitourinary: Denies: no symptoms, burning, discharge, frequency, flank pain, hematuria, incontinence, pain, urgency, other Neurologic/Psychiatric: Denies: no symptoms, anxiety, depressed, emotional problems, headache, numbness, paresthesia, pre-existing deficit, seizure, tingling, tremors, weakness, other Allergies: Coded Allergies: No Known Allergies (Unverified , 03/23/19) Subjective 03/24: on flagyl, dw rn and may have c.diff, labs have been reviewed Objective Objective Current Medications Medications (Trade) Dose Ordered Sig/Bessie Route PRN Reason Start Time Stop Time Status Last Admin Dose Admin Acetaminophen (Tylenol) 500 mg Q4H PRN ORAL Mild Pain/Temp > 100.5 03/23/19 07:00 04/22/19 06:59 03/23/19 16:03 Ciprofloxacin (Cipro 250mg tab) 250 mg EVERY 12 HOURS ORAL 03/23/19 21:00 03/30/19 20:59 03/24/19 08:46 Dextrose/ Electrolytes 1,000 ml @ 100 mls/hr Q10H IV 03/24/19 09:00 04/23/19 08:59 Metronidazole (Flagyl) 500 mg Q8HR ORAL 03/23/19 14:00 03/30/19 13:59 03/24/19 07:00 Pantoprazole (Protonix) 40 mg EVERY 12 HOURS ORAL 03/23/19 21:00 04/22/19 20:59 03/24/19 08:46 Potassium Chloride (K-Dur) 40 meq THREE TIMES A DAY ORAL 03/24/19 09:00 04/23/19 08:59 03/24/19 08:46 Spironolactone (Aldactone) 25 mg DAILY ORAL 03/24/19 09:00 04/23/19 08:59 Last 24 Hour Vital Signs Date Time Temp Pulse Resp B/P (MAP) Pulse Ox O2 Delivery O2 Flow Rate FiO2 03/24/19 08:00 98.4 62 20 85/50 (62) 99 03/24/19 04:00 97.0 63 18 84/48 (60) 100 03/24/19 04:00 66 03/24/19 00:00 53 03/24/19 00:00 97.3 56 20 86/52 (63) 99 03/23/19 21:00 Room Air 03/23/19 20:00 62 03/23/19 16:00 70 03/23/19 12:00 56 03/23/19 09:00 Room Air 03/23/19 08:00 71 03/23/19 08:00 98.3 70 18 94/54 (67) 98 03/23/19 05:30 98.0 76 18 92/70 98 Room Air 03/23/19 03:02 97.5 78 18 91/56 100 Room Air 03/23/19 02:27 97.5 95 18 96/62 (73) 95 Room Air Intake and Output 03/23/19 03/24/19 18:59 06:59 Intake Total 740 ml 600 ml Balance 740 ml 600 ml Intake Oral 740 ml 600 ml # Voids 5 2 # Bowel Movements 6 1 Labs Test 03/23/19 00:00 03/23/19 02:46 03/23/19 03:59 03/23/19 08:30 White Blood Count 6.2 K/UL (4.8-10.8) 3.3 K/UL (4.8-10.8) Red Blood Count 6.04 M/UL (4.70-6.10) 4.76 M/UL (4.70-6.10) Hemoglobin 14.9 G/DL (14.2-18.0) 11.6 G/DL (14.2-18.0) Hematocrit 45.2 % (42.0-52.0) 35.4 % (42.0-52.0) Mean Corpuscular Volume 75 FL (80-99) 74 FL (80-99) Mean Corpuscular Hemoglobin 24.7 PG (27.0-31.0) 24.4 PG (27.0-31.0) Mean Corpuscular Hemoglobin Concent 33.0 G/DL (32.0-36.0) 32.8 G/DL (32.0-36.0) Red Cell Distribution Width 12.9 % (11.6-14.8) 13.0 % (11.6-14.8) Platelet Count 290 K/UL (150-450) 211 K/UL (150-450) Mean Platelet Volume 5.2 FL (6.5-10.1) 5.2 FL (6.5-10.1) Neutrophils (%) (Auto) 69.4 % (45.0-75.0) % (45.0-75.0) Lymphocytes (%) (Auto) 17.5 % (20.0-45.0) % (20.0-45.0) Monocytes (%) (Auto) 12.1 % (1.0-10.0) % (1.0-10.0) Eosinophils (%) (Auto) 0.3 % (0.0-3.0) % (0.0-3.0) Basophils (%) (Auto) 0.8 % (0.0-2.0) % (0.0-2.0) Sodium Level 133 MMOL/L (136-145) 135 MMOL/L (136-145) Potassium Level 2.1 MMOL/L (3.5-5.1) 2.7 MMOL/L (3.5-5.1) Chloride Level 96 MMOL/L (98-107) 102 MMOL/L (98-107) Carbon Dioxide Level 23 MMOL/L (21-32) 21 MMOL/L (21-32) Anion Gap 15 mmol/L (5-15) 12 mmol/L (5-15) Blood Urea Nitrogen 28 mg/dL (7-18) 25 mg/dL (7-18) Creatinine 2.3 MG/DL (0.55-1.30) 1.7 MG/DL (0.55-1.30) Estimat Glomerular Filtration Rate 31.2 mL/min (>60) 44.2 mL/min (>60) Glucose Level 115 MG/DL (74-106) 108 MG/DL (74-106) Lactic Acid Level 1.90 mmol/L (0.4-2.0) Calcium Level 8.5 MG/DL (8.5-10.1) 7.6 MG/DL (8.5-10.1) Total Bilirubin 0.5 MG/DL (0.2-1.0) 0.4 MG/DL (0.2-1.0) Aspartate Amino Transf (AST/SGOT) 81 U/L (15-37) 60 U/L (15-37) Alanine Aminotransferase (ALT/SGPT) 91 U/L (12-78) 70 U/L (12-78) Alkaline Phosphatase 113 U/L (46-116) 84 U/L (46-116) Total Protein 9.3 G/DL (6.4-8.2) 7.0 G/DL (6.4-8.2) Albumin 2.8 G/DL (3.4-5.0) 2.1 G/DL (3.4-5.0) Globulin 6.5 g/dL 4.9 g/dL Albumin/Globulin Ratio 0.4 (1.0-2.7) 0.4 (1.0-2.7) Lipase 496 U/L (73-393) Urine Color Yellow Urine Appearance Clear Urine pH 5 (4.5-8.0) Urine Specific [place] 1.020 (1.005-1.035) Urine Protein 2+ (NEGATIVE) Urine Glucose (UA) Negative (NEGATIVE) Urine Ketones Negative (NEGATIVE) Urine Blood Negative (NEGATIVE) Urine Nitrite Negative (NEGATIVE) Urine Bilirubin Negative (NEGATIVE) Urine Urobilinogen Normal MG/DL (0.0-1.0) Urine Leukocyte Esterase 1+ (NEGATIVE) Urine RBC 0 /HPF (0 - 0) Urine WBC 2-4 /HPF (0 - 0) Urine Squamous Epithelial Cells Few /LPF (NONE/OCC) Urine Bacteria Few /HPF (NONE) Urine Opiates Screen Negative (NEGATIVE) Urine Barbiturates Screen Negative (NEGATIVE) Phencyclidine (PCP) Screen Negative (NEGATIVE) Urine Amphetamines Screen Positive (NEGATIVE) Urine Benzodiazepines Screen Negative (NEGATIVE) Urine Cocaine Screen Negative (NEGATIVE) Urine Marijuana (THC) Screen Negative (NEGATIVE) Differential Total Cells Counted 100 Neutrophils % (Manual) 59 % (45-75) Lymphocytes % (Manual) 24 % (20-45) Monocytes % (Manual) 15 % (1-10) Eosinophils % (Manual) 1 % (0-3) Basophils % (Manual) 1 % (0-2) Band Neutrophils 0 % (0-8) Platelet Estimate Adequate Platelet Morphology Normal Anisocytosis 1+ Microcytosis 1+ Uric Acid 7.2 MG/DL (2.6-7.2) Phosphorus Level 2.8 MG/DL (2.5-4.9) Magnesium Level 2.0 MG/DL (1.8-2.4) Iron Level 14 ug/dL (50-175) Total Iron Binding Capacity 130 ug/dL (250-450) Percent Iron Saturation 11 % (15-50) Unsaturated Iron Binding 116 ug/dL (112-346) Ferritin 202 NG/ML (8-388) C-Reactive Protein, Quantitative 12.3 mg/dL (0.00-0.90) Triglycerides Level 53 MG/DL (30-150) Cholesterol Level 58 MG/DL (< 200) LDL Cholesterol 32 mg/dL (<100) HDL Cholesterol 19 MG/DL (40-60) Cholesterol/HDL Ratio 3.1 (3.3-4.4) Vitamin B12 Level 1723 PG/ML (193-986) Folate 14.3 NG/ML (8.6-58.9) HIV (1&2) Antibody Rapid Preliminary positive Test 03/24/19 05:30 White Blood Count 2.7 K/UL (4.8-10.8) Red Blood Count 4.50 M/UL (4.70-6.10) Hemoglobin 10.9 G/DL (14.2-18.0) Hematocrit 33.6 % (42.0-52.0) Mean Corpuscular Volume 75 FL (80-99) Mean Corpuscular Hemoglobin 24.3 PG (27.0-31.0) Mean Corpuscular Hemoglobin Concent 32.5 G/DL (32.0-36.0) Red Cell Distribution Width 12.7 % (11.6-14.8) Platelet Count 221 K/UL (150-450) Mean Platelet Volume 5.1 FL (6.5-10.1) Neutrophils (%) (Auto) % (45.0-75.0) Lymphocytes (%) (Auto) % (20.0-45.0) Monocytes (%) (Auto) % (1.0-10.0) Eosinophils (%) (Auto) % (0.0-3.0) Basophils (%) (Auto) % (0.0-2.0) Differential Total Cells Counted 100 Neutrophils % (Manual) 55 % (45-75) Lymphocytes % (Manual) 38 % (20-45) Monocytes % (Manual) 5 % (1-10) Eosinophils % (Manual) 2 % (0-3) Basophils % (Manual) 0 % (0-2) Band Neutrophils 0 % (0-8) Platelet Estimate Adequate Platelet Morphology Normal Microcytosis 1+ Sodium Level 140 MMOL/L (136-145) Potassium Level 2.7 MMOL/L (3.5-5.1) Chloride Level 107 MMOL/L (98-107) Carbon Dioxide Level 23 MMOL/L (21-32) Anion Gap 10 mmol/L (5-15) Blood Urea Nitrogen 21 mg/dL (7-18) Creatinine 1.5 MG/DL (0.55-1.30) Estimat Glomerular Filtration Rate 51.1 mL/min (>60) Glucose Level 113 MG/DL (74-106) Uric Acid 5.6 MG/DL (2.6-7.2) Calcium Level 7.8 MG/DL (8.5-10.1) Phosphorus Level 2.7 MG/DL (2.5-4.9) Magnesium Level 2.2 MG/DL (1.8-2.4) Total Bilirubin 0.2 MG/DL (0.2-1.0) Aspartate Amino Transf (AST/SGOT) 74 U/L (15-37) Alanine Aminotransferase (ALT/SGPT) 74 U/L (12-78) Alkaline Phosphatase 92 U/L (46-116) C-Reactive Protein, Quantitative 11.1 mg/dL (0.00-0.90) Pro-B-Type Natriuretic Peptide 177 pg/mL (0-125) Total Protein 6.8 G/DL (6.4-8.2) Albumin 1.9 G/DL (3.4-5.0) Globulin 4.9 g/dL Albumin/Globulin Ratio 0.4 (1.0-2.7) Lipase 951 U/L (73-393) Height (Feet): 5 Height (Inches): 10.00 Weight (Pounds): 140 Objective Physical Exam Vitals: reviewed Gen: not in acute distress Pulm: CTAB CV: rrr, no mgr GI: nontender, nondistended MSKL normal rom Psychiatric: mood/affect normal Elian Kessler MD Mar 24, 2019 08:58
--- NOTE | 2019-03-24 10:00 | NUR ---
NURSE NOTES: paged Dr. Millan to get an update on patient's condition. Spoke to Pia, office staff and left message regarding about patient's left arm is swollen and nurses could not get any new IV access on him at night. Night nurses attempted multiple times and I also asked him to get another insertion and patient still refused. Let Dr. Sanchez know and he said notify Dr. Millan. Left message with his office staff that there's no IV access and his Potassium is 2.7. Awaiting for response from Dr. Millan.
--- NOTE | 2019-03-24 10:07 | Nephrology Progress Note ---
Assessment/Plan Problem List: (1) ARF (acute renal failure) (2) Hypokalemia (3) Dehydration (4) Diarrhea (5) Electrolyte imbalance (6) Amphetamine abuse Assessment Acute Renal Failure- Cr lowering Dehydration Persistant Diarrhea HIV status and Hep B Electrolyte Imbalance- Low K urine + for amphetamins Plan Hydrate- Aim to correct k and Phos and Mag Monitor renal parameters Avoid Nephrotoxics Per Orders Subjective ROS Limited/Unobtainable: No Constitutional: Reports: malaise, weakness, other - diarrhea much improved Objective Objective Last 24 Hour Vital Signs Date Time Temp Pulse Resp B/P (MAP) Pulse Ox O2 Delivery O2 Flow Rate FiO2 03/24/19 09:00 Room Air 03/24/19 08:00 98.4 62 20 85/50 (62) 99 03/24/19 08:00 66 03/24/19 04:00 97.0 63 18 84/48 (60) 100 03/24/19 04:00 66 03/24/19 00:00 53 03/24/19 00:00 97.3 56 20 86/52 (63) 99 03/23/19 21:00 Room Air 03/23/19 20:00 62 03/23/19 16:00 70 03/23/19 12:00 56 Intake and Output 03/23/19 03/24/19 18:59 06:59 Intake Total 740 ml 600 ml Balance 740 ml 600 ml Intake Oral 740 ml 600 ml # Voids 5 2 # Bowel Movements 6 1 Current Medications Medications (Trade) Dose Ordered Sig/Bessie Route PRN Reason Start Time Stop Time Status Last Admin Dose Admin Acetaminophen (Tylenol) 500 mg Q4H PRN ORAL Mild Pain/Temp > 100.5 03/23/19 07:00 04/22/19 06:59 03/23/19 16:03 Ciprofloxacin (Cipro 250mg tab) 250 mg EVERY 12 HOURS ORAL 03/23/19 21:00 03/30/19 20:59 03/24/19 08:46 Dextrose/ Electrolytes 1,000 ml @ 100 mls/hr Q10H IV 03/24/19 09:00 04/23/19 08:59 Metronidazole (Flagyl) 500 mg Q8HR ORAL 03/23/19 14:00 03/30/19 13:59 03/24/19 07:00 Pantoprazole (Protonix) 40 mg EVERY 12 HOURS ORAL 03/23/19 21:00 04/22/19 20:59 03/24/19 08:46 Potassium Chloride (K-Dur) 40 meq THREE TIMES A DAY ORAL 03/24/19 09:00 04/23/19 08:59 03/24/19 08:46 Spironolactone (Aldactone) 25 mg DAILY ORAL 03/24/19 09:00 04/23/19 08:59 Laboratory Tests 03/24/19 05:30: White Blood Count [Pending], Red Blood Count 4.50L, Hemoglobin 10.9L, Hematocrit 33.6L, Mean Corpuscular Volume 75L, Mean Corpuscular Hemoglobin 24.3L , Mean Corpuscular Hemoglobin Concent 32.5, Red Cell Distribution Width 12.7, Platelet Count 221, Mean Platelet Volume 5.1L, Neutrophils (%) (Auto) , Lymphocytes (%) (Auto) , Monocytes (%) (Auto) , Eosinophils (%) (Auto) , Basophils (%) (Auto) , Differential Total Cells Counted 100, Neutrophils % ( Manual) 55, Lymphocytes % (Manual) 38, Monocytes % (Manual) 5, Eosinophils % ( Manual) 2, Basophils % (Manual) 0, Band Neutrophils 0, Lymphocytes [Pending], Platelet Estimate Adequate, Platelet Morphology Normal, Microcytosis 1+, Sodium Level 140, Potassium Level 2.7*L, Chloride Level 107, Carbon Dioxide Level 23, Anion Gap 10, Blood Urea Nitrogen 21H, Creatinine 1.5H, Estimat Glomerular Filtration Rate 51.1, Glucose Level 113H, Uric Acid 5.6, Calcium Level 7.8L, Phosphorus Level 2.7, Magnesium Level 2.2, Total Bilirubin 0.2, Aspartate Amino Transf (AST/SGOT) 74H, Alanine Aminotransferase (ALT/SGPT) 74, Alkaline Phosphatase 92, C-Reactive Protein, Quantitative 11.1H, Pro-B-Type Natriuretic Peptide 177H, Total Protein 6.8, Albumin 1.9L, Globulin 4.9, Albumin/Globulin Ratio 0.4L, Lipase 951H, Cortisol AM Sample [Pending], Percent CD3 Cells [ Pending], Absolute CD3 Count [Pending], Percent CD4 Cells [Pending], Absolute CD4 Count [Pending], T-Lymphocyte CD4/CD8 Ratio [Pending], Percent CD8 Cells [ Pending], Absolute CD8 Count [Pending] Height (Feet): 5 Height (Inches): 10.00 Weight (Pounds): 140 General Appearance: no apparent distress, lethargic Cardiovascular: bradycardia Respiratory/Chest: lungs clear Abdomen: soft Rob Millan MD Mar 24, 2019 10:07
[2019-03-24 12:00] VITALS: BP 87/53
--- NOTE | 2019-03-24 12:37 | GI Progress Note ---
Assessment/Plan Problems: (1) Hypokalemia ICD Codes: E87.6 - Hypokalemia SNOMED: 60142387 (2) Amphetamine abuse ICD Codes: F15.10 - Other stimulant abuse, uncomplicated SNOMED: 09862897 (3) Electrolyte imbalance ICD Codes: E87.8 - Other disorders of electrolyte and fluid balance, not elsewhere classified SNOMED: 767883297 (4) Diarrhea ICD Codes: R19.7 - Diarrhea, unspecified SNOMED: 18763922 Qualifiers: Qualified Codes: R19.7 - Diarrhea, unspecified (5) Dehydration ICD Codes: E86.0 - Dehydration SNOMED: 14461649 (6) Hepatitis ICD Codes: K75.9 - Inflammatory liver disease, unspecified SNOMED: 353419684 Status: stable Status Narrative Discussed with Dr. Fry. Assessment/Plan Urine toxicity positive for amphetamines cdiff negative stool culture pending US reviewed regular diet Imodium prn, Lomotil for persistent diarrhea Electrolyte correction IV and p.o. hydration OB stool r/o GI bleed H2B zofran prn follow labs patient may benefit from a colonoscopy if his diarrhea is persistent The patient was seen and examined at bedside and all new and available data was reviewed in the patients chart. I agree with the above findings, impression and plan. (Patient seen earlier today. Signature stamp does not reflect patient encounter time.). - Allen Fry MD Subjective Subjective stated his diarrhea resolved Objective Last 24 Hour Vital Signs Date Time Temp Pulse Resp B/P (MAP) Pulse Ox O2 Delivery O2 Flow Rate FiO2 03/24/19 09:00 Room Air 03/24/19 08:00 98.4 62 20 85/50 (62) 99 03/24/19 08:00 66 03/24/19 04:00 97.0 63 18 84/48 (60) 100 03/24/19 04:00 66 03/24/19 00:00 53 03/24/19 00:00 97.3 56 20 86/52 (63) 99 03/23/19 21:00 Room Air 03/23/19 20:00 62 03/23/19 16:00 70 Intake and Output 03/23/19 03/24/19 18:59 06:59 Intake Total 740 ml 600 ml Balance 740 ml 600 ml Intake Oral 740 ml 600 ml # Voids 5 2 # Bowel Movements 6 1 Laboratory Tests Test 03/24/19 05:30 White Blood Count Pending Red Blood Count 4.50 M/UL (4.70-6.10) L Hemoglobin 10.9 G/DL (14.2-18.0) L Hematocrit 33.6 % (42.0-52.0) L Mean Corpuscular Volume 75 FL (80-99) L Mean Corpuscular Hemoglobin 24.3 PG (27.0-31.0) L Mean Corpuscular Hemoglobin Concent 32.5 G/DL (32.0-36.0) Red Cell Distribution Width 12.7 % (11.6-14.8) Platelet Count 221 K/UL (150-450) Mean Platelet Volume 5.1 FL (6.5-10.1) L Neutrophils (%) (Auto) % (45.0-75.0) Lymphocytes (%) (Auto) % (20.0-45.0) Monocytes (%) (Auto) % (1.0-10.0) Eosinophils (%) (Auto) % (0.0-3.0) Basophils (%) (Auto) % (0.0-2.0) Differential Total Cells Counted 100 Neutrophils % (Manual) 55 % (45-75) Lymphocytes % (Manual) 38 % (20-45) Monocytes % (Manual) 5 % (1-10) Eosinophils % (Manual) 2 % (0-3) Basophils % (Manual) 0 % (0-2) Band Neutrophils 0 % (0-8) Lymphocytes Pending Platelet Estimate Adequate Platelet Morphology Normal Microcytosis 1+ Sodium Level 140 MMOL/L (136-145) Potassium Level 2.7 MMOL/L (3.5-5.1) *L Chloride Level 107 MMOL/L (98-107) Carbon Dioxide Level 23 MMOL/L (21-32) Anion Gap 10 mmol/L (5-15) Blood Urea Nitrogen 21 mg/dL (7-18) H Creatinine 1.5 MG/DL (0.55-1.30) H Estimat Glomerular Filtration Rate 51.1 mL/min (>60) Glucose Level 113 MG/DL (74-106) H Uric Acid 5.6 MG/DL (2.6-7.2) Calcium Level 7.8 MG/DL (8.5-10.1) L Phosphorus Level 2.7 MG/DL (2.5-4.9) Magnesium Level 2.2 MG/DL (1.8-2.4) Total Bilirubin 0.2 MG/DL (0.2-1.0) Aspartate Amino Transf (AST/SGOT) 74 U/L (15-37) H Alanine Aminotransferase (ALT/SGPT) 74 U/L (12-78) Alkaline Phosphatase 92 U/L (46-116) C-Reactive Protein, Quantitative 11.1 mg/dL (0.00-0.90) H Pro-B-Type Natriuretic Peptide 177 pg/mL (0-125) H Total Protein 6.8 G/DL (6.4-8.2) Albumin 1.9 G/DL (3.4-5.0) L Globulin 4.9 g/dL Albumin/Globulin Ratio 0.4 (1.0-2.7) L Lipase 951 U/L (73-393) H Cortisol AM Sample Pending Percent CD3 Cells Pending Absolute CD3 Count Pending Percent CD4 Cells Pending Absolute CD4 Count Pending T-Lymphocyte CD4/CD8 Ratio Pending Percent CD8 Cells Pending Absolute CD8 Count Pending Height (Feet): 5 Height (Inches): 10.00 Weight (Pounds): 140 General Appearance: WD/WN, no apparent distress, alert Cardiovascular: normal rate Respiratory/Chest: normal breath sounds, no respiratory distress Abdominal Exam: normal bowel sounds, non tender, soft Extremities: normal range of motion, non-tender Stefanie Singh NP Mar 24, 2019 12:37
[2019-03-24] MEDS ORDERED: Loperamide 2mg cap ORAL PRN (12:45)
--- NOTE | 2019-03-24 14:24 | Infectious Diseases Prog Note ---
Assessment/Plan Assessment/Plan IMPRESSION: Diarrhea, likely infectious. HIV, unknown stage Acute renal failure, hypokalemia, hepatitis B, amphetamine abuse. RECOMMENDATION: continue with Cipro, Flagyl. will follow CD4 count. will follow stool culture Subjective ROS Limited/Unobtainable: No Constitutional: Reports: no symptoms, other - feels better Respiratory: Reports: no symptoms Gastrointestinal/Abdominal: Denies: diarrhea Genitourinary: Reports: no symptoms Allergies: Coded Allergies: No Known Allergies (Unverified , 03/23/19) Objective Vital Signs Last 24 Hour Vital Signs Date Time Temp Pulse Resp B/P (MAP) Pulse Ox O2 Delivery O2 Flow Rate FiO2 03/24/19 12:00 98.1 62 20 87/53 (64) 98 03/24/19 12:00 69 03/24/19 09:00 Room Air 03/24/19 08:00 98.4 62 20 85/50 (62) 99 03/24/19 08:00 66 03/24/19 04:00 97.0 63 18 84/48 (60) 100 03/24/19 04:00 66 03/24/19 00:00 53 03/24/19 00:00 97.3 56 20 86/52 (63) 99 03/23/19 21:00 Room Air 03/23/19 20:00 62 03/23/19 16:00 70 Height (Feet): 5 Height (Inches): 10.00 Weight (Pounds): 140 General Appearance: no acute distress HEENT: mucous membranes moist Respiratory/Chest: lungs clear Cardiovascular: normal rate Abdomen: soft, non tender Extremities: other - edema of left arm Neurologic/Psychiatric: alert, oriented x 3, responsive Microbiology Date/Time Source Procedure Growth Status 03/23/19 05:00 Nasal Nares - Final Complete 03/23/19 05:00 Nasal Nares - Final Complete 03/23/19 05:00 Nasal Nares Received 03/23/19 11:00 Stool Clostridium difficile Toxin Assay - Final Complete Laboratory Tests Test 03/24/19 05:30 White Blood Count Pending Red Blood Count 4.50 M/UL (4.70-6.10) L Hemoglobin 10.9 G/DL (14.2-18.0) L Hematocrit 33.6 % (42.0-52.0) L Mean Corpuscular Volume 75 FL (80-99) L Mean Corpuscular Hemoglobin 24.3 PG (27.0-31.0) L Mean Corpuscular Hemoglobin Concent 32.5 G/DL (32.0-36.0) Red Cell Distribution Width 12.7 % (11.6-14.8) Platelet Count 221 K/UL (150-450) Mean Platelet Volume 5.1 FL (6.5-10.1) L Neutrophils (%) (Auto) % (45.0-75.0) Lymphocytes (%) (Auto) % (20.0-45.0) Monocytes (%) (Auto) % (1.0-10.0) Eosinophils (%) (Auto) % (0.0-3.0) Basophils (%) (Auto) % (0.0-2.0) Differential Total Cells Counted 100 Neutrophils % (Manual) 55 % (45-75) Lymphocytes % (Manual) 38 % (20-45) Monocytes % (Manual) 5 % (1-10) Eosinophils % (Manual) 2 % (0-3) Basophils % (Manual) 0 % (0-2) Band Neutrophils 0 % (0-8) Lymphocytes Pending Platelet Estimate Adequate Platelet Morphology Normal Microcytosis 1+ Sodium Level 140 MMOL/L (136-145) Potassium Level 2.7 MMOL/L (3.5-5.1) *L Chloride Level 107 MMOL/L (98-107) Carbon Dioxide Level 23 MMOL/L (21-32) Anion Gap 10 mmol/L (5-15) Blood Urea Nitrogen 21 mg/dL (7-18) H Creatinine 1.5 MG/DL (0.55-1.30) H Estimat Glomerular Filtration Rate 51.1 mL/min (>60) Glucose Level 113 MG/DL (74-106) H Uric Acid 5.6 MG/DL (2.6-7.2) Calcium Level 7.8 MG/DL (8.5-10.1) L Phosphorus Level 2.7 MG/DL (2.5-4.9) Magnesium Level 2.2 MG/DL (1.8-2.4) Total Bilirubin 0.2 MG/DL (0.2-1.0) Aspartate Amino Transf (AST/SGOT) 74 U/L (15-37) H Alanine Aminotransferase (ALT/SGPT) 74 U/L (12-78) Alkaline Phosphatase 92 U/L (46-116) C-Reactive Protein, Quantitative 11.1 mg/dL (0.00-0.90) H Pro-B-Type Natriuretic Peptide 177 pg/mL (0-125) H Total Protein 6.8 G/DL (6.4-8.2) Albumin 1.9 G/DL (3.4-5.0) L Globulin 4.9 g/dL Albumin/Globulin Ratio 0.4 (1.0-2.7) L Lipase 951 U/L (73-393) H Cortisol AM Sample 5.2 UG/DL Percent CD3 Cells Pending Absolute CD3 Count Pending Percent CD4 Cells Pending Absolute CD4 Count Pending T-Lymphocyte CD4/CD8 Ratio Pending Percent CD8 Cells Pending Absolute CD8 Count Pending Current Medications Medications (Trade) Dose Ordered Sig/Bessie Route PRN Reason Start Time Stop Time Status Last Admin Dose Admin Acetaminophen (Tylenol) 500 mg Q4H PRN ORAL Mild Pain/Temp > 100.5 03/23/19 07:00 04/22/19 06:59 03/23/19 16:03 Ciprofloxacin (Cipro 250mg tab) 250 mg EVERY 12 HOURS ORAL 03/23/19 21:00 03/30/19 20:59 03/24/19 08:46 Dextrose/ Electrolytes 1,000 ml @ 100 mls/hr Q10H IV 03/24/19 09:00 04/23/19 08:59 Loperamide HCl (Imodium) 2 mg Q4H PRN ORAL Diarrhea 03/24/19 12:45 04/23/19 12:44 Metronidazole (Flagyl) 500 mg Q8HR ORAL 03/23/19 14:00 03/30/19 13:59 03/24/19 14:08 Midodrine (Pro-Amatine) 2.5 mg THREE TIMES A DAY ORAL 03/24/19 13:00 04/23/19 12:59 03/24/19 12:53 Pantoprazole (Protonix) 40 mg EVERY 12 HOURS ORAL 03/23/19 21:00 04/22/19 20:59 03/24/19 08:46 Potassium Chloride (K-Dur) 40 meq THREE TIMES A DAY ORAL 03/24/19 09:00 04/23/19 08:59 03/24/19 12:53 Spironolactone (Aldactone) 25 mg DAILY ORAL 03/24/19 09:00 04/23/19 08:59 Sarwat Yen MD Mar 24, 2019 14:24
--- NOTE | 2019-03-24 15:12 | Cardiology Report ---
APPROVED REPORT EKG Measurement Heart [id number] Suspect arm lead reversal, interpretation assumes no reversal Normal sinus rhythm Rightward axis Incomplete right bundle branch block Prolonged QT Abnormal ECG
[2019-03-24 16:00] VITALS: BP 91/50
--- NOTE | 2019-03-24 16:34 | NUR ---
CASE MANAGEMENT:REVIEW 03/24/19 SI:INFECTIOUS DIARRHEA ACUTE RENAL FAILURE. HIV 98.1 62 20 87/53 98% ON RA K-2.7 BUN+21 CR+1.5 IS: MIDODRINE PO TID K-DUR PO TID ALDACTONE PO QD IVF@100/HR CIPRO PO Q12 FLAGYL PO Q8HR PROTONIX PO Q12 : TELEMETRY STATUS
--- NOTE | 2019-03-24 17:00 | NUR ---
NURSE NOTES: Patient was having some secondary degree Type 2 block. Nurse ran EKG and it showed possible lateral infarct, patient's HR was from 64 to 44. Patient's awake, no distress noted, denies pain, denies dizziness. The first baseline EKG showed incomplete right bundle branch block. His BP is 91/50. Contacted Dr. Sanchez and doctor consulted with Dr. Lan. Contacted Dr. Lan for consult, awaiting for response.
--- NOTE | 2019-03-24 19:50 | NUR ---
HAND-OFF: Report given to PONCHO White. Plan of care endorsed .
--- NOTE | 2019-03-24 19:55 | NUR ---
NURSE NOTES: RECEIVED PATIENT ASLEEP, EASILY AROUSABLE, NO COMPLAINTS OF PAIN AT THIS TIME. CALL LIGHT AND BEDSIDE TABLE WITHIN REACH, BED IN LOW POSITION. WILL CONTINUE WITH PLAN OF CARE.
[2019-03-24 20:00] VITALS: BP 91/50
--- NOTE | 2019-03-24 21:30 | General Progress Note ---
Assessment/Plan Problem List: (1) Hepatitis ICD Codes: K75.9 - Inflammatory liver disease, unspecified SNOMED: 300802397 (2) Dehydration ICD Codes: E86.0 - Dehydration SNOMED: 63910875 (3) Diarrhea ICD Codes: R19.7 - Diarrhea, unspecified SNOMED: 28860338 Qualifiers: Qualified Codes: R19.7 - Diarrhea, unspecified (4) Electrolyte imbalance ICD Codes: E87.8 - Other disorders of electrolyte and fluid balance, not elsewhere classified SNOMED: 791984105 (5) Hypokalemia ICD Codes: E87.6 - Hypokalemia SNOMED: 42585955 Status: stable, progressing Assessment/Plan: afebrile dehydraton diarrhea hepatitis hiv r/o infectious diarrhea weak Subjective ROS Limited/Unobtainable: Yes Allergies: Coded Allergies: No Known Allergies (Unverified , 03/23/19) Objective Last 24 Hour Vital Signs Date Time Temp Pulse Resp B/P (MAP) Pulse Ox O2 Delivery O2 Flow Rate FiO2 03/24/19 16:00 98.1 60 20 91/50 (64) 98 03/24/19 16:00 65 03/24/19 12:00 98.1 62 20 87/53 (64) 98 03/24/19 12:00 69 03/24/19 09:00 Room Air 03/24/19 08:00 98.4 62 20 85/50 (62) 99 03/24/19 08:00 66 03/24/19 04:00 97.0 63 18 84/48 (60) 100 03/24/19 04:00 66 03/24/19 00:00 53 03/24/19 00:00 97.3 56 20 86/52 (63) 99 Intake and Output 03/23/19 03/24/19 19:00 07:00 Intake Total 740 ml 600 ml Balance 740 ml 600 ml Intake Oral 740 ml 600 ml # Voids 5 2 # Bowel Movements 6 1 Laboratory Tests 03/24/19 05:30: White Blood Count [Pending], Red Blood Count 4.50L, Hemoglobin 10.9L, Hematocrit 33.6L, Mean Corpuscular Volume 75L, Mean Corpuscular Hemoglobin 24.3L , Mean Corpuscular Hemoglobin Concent 32.5, Red Cell Distribution Width 12.7, Platelet Count 221, Mean Platelet Volume 5.1L, Neutrophils (%) (Auto) , Lymphocytes (%) (Auto) , Monocytes (%) (Auto) , Eosinophils (%) (Auto) , Basophils (%) (Auto) , Differential Total Cells Counted 100, Neutrophils % ( Manual) 55, Lymphocytes % (Manual) 38, Monocytes % (Manual) 5, Eosinophils % ( Manual) 2, Basophils % (Manual) 0, Band Neutrophils 0, Lymphocytes [Pending], Platelet Estimate Adequate, Platelet Morphology Normal, Microcytosis 1+, Sodium Level 140, Potassium Level 2.7*L, Chloride Level 107, Carbon Dioxide Level 23, Anion Gap 10, Blood Urea Nitrogen 21H, Creatinine 1.5H, Estimat Glomerular Filtration Rate 51.1, Glucose Level 113H, Uric Acid 5.6, Calcium Level 7.8L, Phosphorus Level 2.7, Magnesium Level 2.2, Total Bilirubin 0.2, Aspartate Amino Transf (AST/SGOT) 74H, Alanine Aminotransferase (ALT/SGPT) 74, Alkaline Phosphatase 92, C-Reactive Protein, Quantitative 11.1H, Pro-B-Type Natriuretic Peptide 177H, Total Protein 6.8, Albumin 1.9L, Globulin 4.9, Albumin/Globulin Ratio 0.4L, Lipase 951H, Cortisol AM Sample 5.2, Percent CD3 Cells [Pending], Absolute CD3 Count [Pending], Percent CD4 Cells [Pending], Absolute CD4 Count [ Pending], T-Lymphocyte CD4/CD8 Ratio [Pending], Percent CD8 Cells [Pending], Absolute CD8 Count [Pending] Height (Feet): 5 Height (Inches): 10.00 Weight (Pounds): 140 Cardiovascular: normal rate Respiratory/Chest: lungs clear Abdomen: soft Beth Sanchez MD Mar 24, 2019 21:30
[2019-03-25] VITALS: BP 93/63
[2019-03-25 04:00] VITALS: BP 94/53
[2019-03-25] MEDS: metroNIDAZOLE 500mg tab ORAL SCH ×3 (05:40→21:36)
[2019-03-25 07:04] LABS: HEMATOCRIT 34.1 % (42.0-52.0); HEMOGLOBIN 11.1 G/DL (14.2-18.0); MEAN CORPUSCULAR VOLUME 75 FL (80-99); PLATELET COUNT 212 K/UL (150-450); RED BLOOD COUNT 4.54 M/UL (4.70-6.10); RED CELL DISTRIBUTION WIDTH 13.2 % (11.6-14.8); WHITE BLOOD COUNT 2.6 K/UL (4.8-10.8)
[2019-03-25 07:09] LABS: ALANINE AMINOTRANSFERASE 62 U/L (12-78); ALBUMIN 1.9 G/DL (3.4-5.0); ALBUMIN/GLOBULIN RATIO 0.4 (1.0-2.7); ALKALINE PHOSPHATASE 98 U/L (46-116); ANION GAP 10 mmol/L (5-15); ASPARTATE AMINO TRANSFERASE 57 U/L (15-37); BILIRUBIN,TOTAL 0.2 MG/DL (0.2-1.0); BLOOD UREA NITROGEN 14 mg/dL (7-18); CARBON DIOXIDE 22 MMOL/L (21-32); CHLORIDE 111 MMOL/L (98-107); CREATININE 1.2 MG/DL (0.55-1.30); PHOSPHORUS 1.8 MG/DL (2.5-4.9); POTASSIUM 3.7 MMOL/L (3.5-5.1); SODIUM 143 MMOL/L (136-145)
--- NOTE | 2019-03-25 07:26 | Nephrology Progress Note ---
Assessment/Plan Problem List: (1) ARF (acute renal failure) (2) Hypokalemia (3) Dehydration (4) Diarrhea Assessment: much improve (5) Electrolyte imbalance (6) Amphetamine abuse Assessment Acute Renal Failure- Cr lowering Dehydration Persistant Diarrhea HIV status and Hep B Electrolyte Imbalance- Low K urine + for amphetamins Plan adjust Hydrate- Aim to correct k and Phos and Mag Monitor renal parameters Avoid Nephrotoxics Per Orders Subjective ROS Limited/Unobtainable: No Constitutional: Reports: malaise, other - no diarrhea Objective Objective Last 24 Hour Vital Signs Date Time Temp Pulse Resp B/P (MAP) Pulse Ox O2 Delivery O2 Flow Rate FiO2 03/25/19 04:00 97.9 57 18 94/53 (67) 97 03/25/19 04:00 58 03/25/19 00:00 59 03/25/19 00:00 97.7 59 18 93/63 (73) 100 03/24/19 21:00 Room Air 03/24/19 20:00 48 03/24/19 20:00 97.5 61 20 91/50 (64) 100 03/24/19 16:00 98.1 60 20 91/50 (64) 98 03/24/19 16:00 65 03/24/19 12:00 98.1 62 20 87/53 (64) 98 03/24/19 12:00 69 03/24/19 09:00 Room Air 03/24/19 08:00 98.4 62 20 85/50 (62) 99 03/24/19 08:00 66 Intake and Output 03/24/19 03/25/19 19:00 07:00 Intake Total 500 ml 360 ml Balance 500 ml 360 ml Intake Oral 500 ml 360 ml # Voids 3 3 # Bowel Movements 1 Current Medications Medications (Trade) Dose Ordered Sig/Bessie Route PRN Reason Start Time Stop Time Status Last Admin Dose Admin Acetaminophen (Tylenol) 500 mg Q4H PRN ORAL Mild Pain/Temp > 100.5 03/23/19 07:00 04/22/19 06:59 03/23/19 16:03 Ciprofloxacin (Cipro 250mg tab) 250 mg EVERY 12 HOURS ORAL 03/23/19 21:00 03/30/19 20:59 03/24/19 20:40 Dextrose/ Electrolytes 1,000 ml @ 100 mls/hr Q10H IV 03/24/19 09:00 04/23/19 08:59 Loperamide HCl (Imodium) 2 mg Q4H PRN ORAL Diarrhea 03/24/19 12:45 04/23/19 12:44 Metronidazole (Flagyl) 500 mg Q8HR ORAL 03/23/19 14:00 03/30/19 13:59 03/25/19 05:40 Midodrine (Pro-Amatine) 2.5 mg THREE TIMES A DAY ORAL 03/24/19 13:00 04/23/19 12:59 03/24/19 17:14 Pantoprazole (Protonix) 40 mg EVERY 12 HOURS ORAL 03/23/19 21:00 04/22/19 20:59 03/24/19 20:40 Potassium Chloride (K-Dur) 40 meq THREE TIMES A DAY ORAL 03/24/19 09:00 04/23/19 08:59 03/24/19 17:14 Spironolactone (Aldactone) 25 mg DAILY ORAL 03/24/19 09:00 04/23/19 08:59 Laboratory Tests 03/25/19 03:05: Urine Eosinophils None seen 03/25/19 05:38: White Blood Count 2.6L, Red Blood Count 4.54L, Hemoglobin 11.1L, Hematocrit 34.1L, Mean Corpuscular Volume 75L, Mean Corpuscular Hemoglobin 24.4L, Mean Corpuscular Hemoglobin Concent 32.4, Red Cell Distribution Width 13.2, Platelet Count 212, Mean Platelet Volume 5.0L, Neutrophils (%) (Auto) , Lymphocytes (%) ( Auto) , Monocytes (%) (Auto) , Eosinophils (%) (Auto) , Basophils (%) (Auto) , Neutrophils % (Manual) [Pending], Lymphocytes % (Manual) [Pending], Platelet Estimate [Pending], Platelet Morphology [Pending], Sodium Level 143, Potassium Level 3.7, Chloride Level 111H, Carbon Dioxide Level 22, Anion Gap 10, Blood Urea Nitrogen 14, Creatinine 1.2, Estimat Glomerular Filtration Rate > 60, Glucose Level 99, Uric Acid 4.3, Calcium Level 8.0L, Phosphorus Level 1.8L, Magnesium Level 1.8, Total Bilirubin 0.2, Aspartate Amino Transf (AST/SGOT) 57H , Alanine Aminotransferase (ALT/SGPT) 62, Alkaline Phosphatase 98, C-Reactive Protein, Quantitative 5.0H, Total Protein 6.8, Albumin 1.9L, Globulin 4.9, Albumin/Globulin Ratio 0.4L Height (Feet): 5 Height (Inches): 10.00 Weight (Pounds): 140 General Appearance: no apparent distress Cardiovascular: normal rate Respiratory/Chest: lungs clear Abdomen: soft Rob Millan MD Mar 25, 2019 07:26
--- NOTE | 2019-03-25 07:37 | NUR ---
NURSE NOTES: Pt received from [facility] in stable condition w/ no cardiopulmonary distress noted. Pt is awake in bed, AAOx4 on RA. LH 22g IV noted. Skin alterations noted. Bed is in lowest position w/alarm on, call light within reach, side rails up x 2, will continue to monitor.
--- NOTE | 2019-03-25 07:37 | NUR ---
HAND-OFF: Report given to Aleksandra CLARKE RN. PATIENT RESTING IN BED, NO SIGNS OF DISTRESS NOTED.
[2019-03-25 08:00] VITALS: BP 91/54
[2019-03-25] MEDS: Spironolactone 25mg tab ORAL SCH (09:00)
--- NOTE | 2019-03-25 09:04 | NUR ---
NURSE NOTES: D5 w/20 mEq KCL just brought up by pharmacy with new label for 50cc/hr. Will administer now.
--- NOTE | 2019-03-25 10:08 | Hematology/Onc Progress Note ---
Assessment/Plan Assessment/Plan Assessment and Recs: # Leukopenia -- decreased wbc on admission, no historical studies to compare, likely due to hx hepatitis B and hiv as well, contributors as well as splenomegaly++ --> trend as needed wbc 3.3-->2.7-->2.6 --> ANC goal is >1500 --> abd us ordered as well in fact does show large spleen and hepatomegaly --> neupogen to be given on prn basis # Anemia due to chronic disease --> due to hep and hiv --> trend as needed 11-->10.6-->11.1 --> hold off on epo or iron --> no hemolysis noted # Diarrhea cause of low k --> r/o infectious causes, stool o&p ==> abx as needed per id (flagyl)--> cipro/flagyl, # ARF (acute renal failure) --> on ivf as needed # Hypokalemia --> replete with K as needed # Balanitis --> uro recs prn # HIV --> on ppx has been started by id Time of note does not correspond to time patient was seen Greatly appreciate consultation. Subjective Allergies: Coded Allergies: No Known Allergies (Unverified , 03/23/19) Subjective 03/24: on flagyl, lou rn and may have c.diff, labs have been reviewed 03/25: on abx, vs stable, no f/c, no distress, no pain, labs noted Objective Objective Current Medications Medications (Trade) Dose Ordered Sig/Bessie Route PRN Reason Start Time Stop Time Status Last Admin Dose Admin Acetaminophen (Tylenol) 500 mg Q4H PRN ORAL Mild Pain/Temp > 100.5 03/23/19 07:00 04/22/19 06:59 03/23/19 16:03 Ciprofloxacin (Cipro 250mg tab) 250 mg EVERY 12 HOURS ORAL 03/23/19 21:00 03/30/19 20:59 03/25/19 09:18 Dextrose/ Electrolytes 1,000 ml @ 50 mls/hr Q20H IV 03/25/19 08:00 04/23/19 07:59 03/25/19 09:06 Loperamide HCl (Imodium) 2 mg Q4H PRN ORAL Diarrhea 03/24/19 12:45 04/23/19 12:44 Metronidazole (Flagyl) 500 mg Q8HR ORAL 03/23/19 14:00 03/30/19 13:59 03/25/19 05:40 Midodrine (Pro-Amatine) 2.5 mg THREE TIMES A DAY ORAL 03/24/19 13:00 04/23/19 12:59 03/25/19 09:18 Pantoprazole (Protonix) 40 mg EVERY 12 HOURS ORAL 03/23/19 21:00 04/22/19 20:59 03/25/19 09:18 Potassium Chloride (K-Dur) 40 meq BID ORAL 03/25/19 18:00 04/23/19 08:59 Spironolactone (Aldactone) 25 mg DAILY ORAL 03/24/19 09:00 04/23/19 08:59 Last 24 Hour Vital Signs Date Time Temp Pulse Resp B/P (MAP) Pulse Ox O2 Delivery O2 Flow Rate FiO2 03/25/19 08:00 98.0 63 14 91/54 (66) 100 03/25/19 04:00 97.9 57 18 94/53 (67) 97 03/25/19 04:00 58 03/25/19 00:00 59 03/25/19 00:00 97.7 59 18 93/63 (73) 100 03/24/19 21:00 Room Air 03/24/19 20:00 48 03/24/19 20:00 97.5 61 20 91/50 (64) 100 03/24/19 16:00 98.1 60 20 91/50 (64) 98 03/24/19 16:00 65 03/24/19 12:00 98.1 62 20 87/53 (64) 98 03/24/19 12:00 69 03/24/19 09:00 Room Air 03/24/19 08:00 98.4 62 20 85/50 (62) 99 03/24/19 08:00 66 03/24/19 04:00 97.0 63 18 84/48 (60) 100 03/24/19 04:00 66 03/24/19 00:00 53 03/24/19 00:00 97.3 56 20 86/52 (63) 99 03/23/19 21:00 Room Air 03/23/19 20:00 62 03/23/19 16:00 70 03/23/19 12:00 56 Intake and Output 03/24/19 03/25/19 18:59 06:59 Intake Total 500 ml 360 ml Balance 500 ml 360 ml Intake Oral 500 ml 360 ml # Voids 3 3 # Bowel Movements 1 Labs Test 03/23/19 00:00 03/23/19 02:46 03/23/19 03:59 03/23/19 08:30 HIV-1 Antibody Positive (Negative) HIV-2 Antibody Negative (Negative) HIV Note Hiv-1 positive (.) White Blood Count 6.2 K/UL (4.8-10.8) 3.3 K/UL (4.8-10.8) Red Blood Count 6.04 M/UL (4.70-6.10) 4.76 M/UL (4.70-6.10) Hemoglobin 14.9 G/DL (14.2-18.0) 11.6 G/DL (14.2-18.0) Hematocrit 45.2 % (42.0-52.0) 35.4 % (42.0-52.0) Mean Corpuscular Volume 75 FL (80-99) 74 FL (80-99) Mean Corpuscular Hemoglobin 24.7 PG (27.0-31.0) 24.4 PG (27.0-31.0) Mean Corpuscular Hemoglobin Concent 33.0 G/DL (32.0-36.0) 32.8 G/DL (32.0-36.0) Red Cell Distribution Width 12.9 % (11.6-14.8) 13.0 % (11.6-14.8) Platelet Count 290 K/UL (150-450) 211 K/UL (150-450) Mean Platelet Volume 5.2 FL (6.5-10.1) 5.2 FL (6.5-10.1) Neutrophils (%) (Auto) 69.4 % (45.0-75.0) % (45.0-75.0) Lymphocytes (%) (Auto) 17.5 % (20.0-45.0) % (20.0-45.0) Monocytes (%) (Auto) 12.1 % (1.0-10.0) % (1.0-10.0) Eosinophils (%) (Auto) 0.3 % (0.0-3.0) % (0.0-3.0) Basophils (%) (Auto) 0.8 % (0.0-2.0) % (0.0-2.0) Sodium Level 133 MMOL/L (136-145) 135 MMOL/L (136-145) Potassium Level 2.1 MMOL/L (3.5-5.1) 2.7 MMOL/L (3.5-5.1) Chloride Level 96 MMOL/L (98-107) 102 MMOL/L (98-107) Carbon Dioxide Level 23 MMOL/L (21-32) 21 MMOL/L (21-32) Anion Gap 15 mmol/L (5-15) 12 mmol/L (5-15) Blood Urea Nitrogen 28 mg/dL (7-18) 25 mg/dL (7-18) Creatinine 2.3 MG/DL (0.55-1.30) 1.7 MG/DL (0.55-1.30) Estimat Glomerular Filtration Rate 31.2 mL/min (>60) 44.2 mL/min (>60) Glucose Level 115 MG/DL (74-106) 108 MG/DL (74-106) Lactic Acid Level 1.90 mmol/L (0.4-2.0) Calcium Level 8.5 MG/DL (8.5-10.1) 7.6 MG/DL (8.5-10.1) Total Bilirubin 0.5 MG/DL (0.2-1.0) 0.4 MG/DL (0.2-1.0) Aspartate Amino Transf (AST/SGOT) 81 U/L (15-37) 60 U/L (15-37) Alanine Aminotransferase (ALT/SGPT) 91 U/L (12-78) 70 U/L (12-78) Alkaline Phosphatase 113 U/L (46-116) 84 U/L (46-116) Total Protein 9.3 G/DL (6.4-8.2) 7.0 G/DL (6.4-8.2) Albumin 2.8 G/DL (3.4-5.0) 2.1 G/DL (3.4-5.0) Globulin 6.5 g/dL 4.9 g/dL Albumin/Globulin Ratio 0.4 (1.0-2.7) 0.4 (1.0-2.7) Lipase 496 U/L (73-393) Urine Color Yellow Urine Appearance Clear Urine pH 5 (4.5-8.0) Urine Specific [place] 1.020 (1.005-1.035) Urine Protein 2+ (NEGATIVE) Urine Glucose (UA) Negative (NEGATIVE) Urine Ketones Negative (NEGATIVE) Urine Blood Negative (NEGATIVE) Urine Nitrite Negative (NEGATIVE) Urine Bilirubin Negative (NEGATIVE) Urine Urobilinogen Normal MG/DL (0.0-1.0) Urine Leukocyte Esterase 1+ (NEGATIVE) Urine RBC 0 /HPF (0 - 0) Urine WBC 2-4 /HPF (0 - 0) Urine Squamous Epithelial Cells Few /LPF (NONE/OCC) Urine Bacteria Few /HPF (NONE) Urine Opiates Screen Negative (NEGATIVE) Urine Barbiturates Screen Negative (NEGATIVE) Phencyclidine (PCP) Screen Negative (NEGATIVE) Urine Amphetamines Screen Positive (NEGATIVE) Urine Benzodiazepines Screen Negative (NEGATIVE) Urine Cocaine Screen Negative (NEGATIVE) Urine Marijuana (THC) Screen Negative (NEGATIVE) Differential Total Cells Counted 100 Neutrophils % (Manual) 59 % (45-75) Lymphocytes % (Manual) 24 % (20-45) Monocytes % (Manual) 15 % (1-10) Eosinophils % (Manual) 1 % (0-3) Basophils % (Manual) 1 % (0-2) Band Neutrophils 0 % (0-8) Platelet Estimate Adequate Platelet Morphology Normal Anisocytosis 1+ Microcytosis 1+ Uric Acid 7.2 MG/DL (2.6-7.2) Phosphorus Level 2.8 MG/DL (2.5-4.9) Magnesium Level 2.0 MG/DL (1.8-2.4) Iron Level 14 ug/dL (50-175) Total Iron Binding Capacity 130 ug/dL (250-450) Percent Iron Saturation 11 % (15-50) Unsaturated Iron Binding 116 ug/dL (112-346) Ferritin 202 NG/ML (8-388) C-Reactive Protein, Quantitative 12.3 mg/dL (0.00-0.90) Triglycerides Level 53 MG/DL (30-150) Cholesterol Level 58 MG/DL (< 200) LDL Cholesterol 32 mg/dL (<100) HDL Cholesterol 19 MG/DL (40-60) Cholesterol/HDL Ratio 3.1 (3.3-4.4) Vitamin B12 Level 1723 PG/ML (193-986) Folate 14.3 NG/ML (8.6-58.9) Hepatitis A IgM Antibody Negative (Negative) Hepatitis B Surface Antigen Positive (Negative) Hepatitis B Core IgM Antibody Negative (Negative) Hepatitis C Antibody 0.2 s/co ratio (0.0-0.9) HIV (1&2) Antibody Rapid Preliminary positive Test 03/24/19 05:30 03/25/19 03:05 03/25/19 05:38 White Blood Count 2.7 K/UL (4.8-10.8) 2.6 K/UL (4.8-10.8) Red Blood Count 4.50 M/UL (4.70-6.10) 4.54 M/UL (4.70-6.10) Hemoglobin 10.9 G/DL (14.2-18.0) 11.1 G/DL (14.2-18.0) Hematocrit 33.6 % (42.0-52.0) 34.1 % (42.0-52.0) Mean Corpuscular Volume 75 FL (80-99) 75 FL (80-99) Mean Corpuscular Hemoglobin 24.3 PG (27.0-31.0) 24.4 PG (27.0-31.0) Mean Corpuscular Hemoglobin Concent 32.5 G/DL (32.0-36.0) 32.4 G/DL (32.0-36.0) Red Cell Distribution Width 12.7 % (11.6-14.8) 13.2 % (11.6-14.8) Platelet Count 221 K/UL (150-450) 212 K/UL (150-450) Mean Platelet Volume 5.1 FL (6.5-10.1) 5.0 FL (6.5-10.1) Neutrophils (%) (Auto) % (45.0-75.0) % (45.0-75.0) Lymphocytes (%) (Auto) % (20.0-45.0) % (20.0-45.0) Monocytes (%) (Auto) % (1.0-10.0) % (1.0-10.0) Eosinophils (%) (Auto) % (0.0-3.0) % (0.0-3.0) Basophils (%) (Auto) % (0.0-2.0) % (0.0-2.0) Differential Total Cells Counted 100 100 Neutrophils % (Manual) 55 % (45-75) 53 % (45-75) Lymphocytes % (Manual) 38 % (20-45) 41 % (20-45) Monocytes % (Manual) 5 % (1-10) 6 % (1-10) Eosinophils % (Manual) 2 % (0-3) 0 % (0-3) Basophils % (Manual) 0 % (0-2) 0 % (0-2) Band Neutrophils 0 % (0-8) 0 % (0-8) Platelet Estimate Adequate Adequate Platelet Morphology Normal Normal Microcytosis 1+ 1+ Sodium Level 140 MMOL/L (136-145) 143 MMOL/L (136-145) Potassium Level 2.7 MMOL/L (3.5-5.1) 3.7 MMOL/L (3.5-5.1) Chloride Level 107 MMOL/L (98-107) 111 MMOL/L (98-107) Carbon Dioxide Level 23 MMOL/L (21-32) 22 MMOL/L (21-32) Anion Gap 10 mmol/L (5-15) 10 mmol/L (5-15) Blood Urea Nitrogen 21 mg/dL (7-18) 14 mg/dL (7-18) Creatinine 1.5 MG/DL (0.55-1.30) 1.2 MG/DL (0.55-1.30) Estimat Glomerular Filtration Rate 51.1 mL/min (>60) > 60 mL/min (>60) Glucose Level 113 MG/DL (74-106) 99 MG/DL (74-106) Uric Acid 5.6 MG/DL (2.6-7.2) 4.3 MG/DL (2.6-7.2) Calcium Level 7.8 MG/DL (8.5-10.1) 8.0 MG/DL (8.5-10.1) Phosphorus Level 2.7 MG/DL (2.5-4.9) 1.8 MG/DL (2.5-4.9) Magnesium Level 2.2 MG/DL (1.8-2.4) 1.8 MG/DL (1.8-2.4) Total Bilirubin 0.2 MG/DL (0.2-1.0) 0.2 MG/DL (0.2-1.0) Aspartate Amino Transf (AST/SGOT) 74 U/L (15-37) 57 U/L (15-37) Alanine Aminotransferase (ALT/SGPT) 74 U/L (12-78) 62 U/L (12-78) Alkaline Phosphatase 92 U/L (46-116) 98 U/L (46-116) C-Reactive Protein, Quantitative 11.1 mg/dL (0.00-0.90) 5.0 mg/dL (0.00-0.90) Pro-B-Type Natriuretic Peptide 177 pg/mL (0-125) Total Protein 6.8 G/DL (6.4-8.2) 6.8 G/DL (6.4-8.2) Albumin 1.9 G/DL (3.4-5.0) 1.9 G/DL (3.4-5.0) Globulin 4.9 g/dL 4.9 g/dL Albumin/Globulin Ratio 0.4 (1.0-2.7) 0.4 (1.0-2.7) Lipase 951 U/L (73-393) Cortisol AM Sample 5.2 UG/DL Urine Eosinophils None seen (NONE SEEN) Height (Feet): 5 Height (Inches): 10.00 Weight (Pounds): 140 Objective Physical Exam Vitals: reviewed Gen: not in acute distress Pulm: CTAB CV: rrr, no mgr GI: nontender, nondistended MSKL normal rom Psychiatric: mood/affect normal Elian Kessler MD Mar 25, 2019 10:08
[2019-03-25 12:00] VITALS: BP 90/65
--- NOTE | 2019-03-25 12:36 | GI Progress Note ---
Assessment/Plan Problems: (1) Hypokalemia ICD Codes: E87.6 - Hypokalemia SNOMED: 37300394 (2) Amphetamine abuse ICD Codes: F15.10 - Other stimulant abuse, uncomplicated SNOMED: 34599789 (3) Electrolyte imbalance ICD Codes: E87.8 - Other disorders of electrolyte and fluid balance, not elsewhere classified SNOMED: 859287858 (4) Diarrhea ICD Codes: R19.7 - Diarrhea, unspecified SNOMED: 96154635 Qualifiers: Qualified Codes: R19.7 - Diarrhea, unspecified (5) Dehydration ICD Codes: E86.0 - Dehydration SNOMED: 32567729 (6) Hepatitis ICD Codes: K75.9 - Inflammatory liver disease, unspecified SNOMED: 704799536 Status: stable Status Narrative Discussed with Dr. Fry Assessment/Plan Urine toxicity positive for amphetamines cdiff negative stool culture negative US reviewed regular diet Imodium prn, Lomotil for persistent diarrhea Electrolyte correction IV and p.o. hydration OB stool r/o GI bleed H2B zofran prn follow labs patient may benefit from a colonoscopy to rule out IBS if his diarrhea is persistent The patient was seen and examined at bedside and all new and available data was reviewed in the patients chart. I agree with the above findings, impression and plan. (Patient seen earlier today. Signature stamp does not reflect patient encounter time.). - Allen rFy MD Subjective Subjective Diarrhea resolved Stated his bowel movement was soft Decreased frequency of bowel movements Denies any abdominal pain Objective Last 24 Hour Vital Signs Date Time Temp Pulse Resp B/P (MAP) Pulse Ox O2 Delivery O2 Flow Rate FiO2 03/25/19 09:00 Room Air 03/25/19 08:00 98.0 63 14 91/54 (66) 100 03/25/19 04:00 97.9 57 18 94/53 (67) 97 03/25/19 04:00 58 03/25/19 00:00 59 03/25/19 00:00 97.7 59 18 93/63 (73) 100 03/24/19 21:00 Room Air 03/24/19 20:00 48 03/24/19 20:00 97.5 61 20 91/50 (64) 100 03/24/19 16:00 98.1 60 20 91/50 (64) 98 03/24/19 16:00 65 Intake and Output 03/24/19 03/25/19 18:59 06:59 Intake Total 500 ml 360 ml Balance 500 ml 360 ml Intake Oral 500 ml 360 ml # Voids 3 3 # Bowel Movements 1 Laboratory Tests Test 03/25/19 03:05 03/25/19 05:38 Urine Eosinophils None seen (NONE SEEN) White Blood Count 2.6 K/UL (4.8-10.8) L Red Blood Count 4.54 M/UL (4.70-6.10) L Hemoglobin 11.1 G/DL (14.2-18.0) L Hematocrit 34.1 % (42.0-52.0) L Mean Corpuscular Volume 75 FL (80-99) L Mean Corpuscular Hemoglobin 24.4 PG (27.0-31.0) L Mean Corpuscular Hemoglobin Concent 32.4 G/DL (32.0-36.0) Red Cell Distribution Width 13.2 % (11.6-14.8) Platelet Count 212 K/UL (150-450) Mean Platelet Volume 5.0 FL (6.5-10.1) L Neutrophils (%) (Auto) % (45.0-75.0) Lymphocytes (%) (Auto) % (20.0-45.0) Monocytes (%) (Auto) % (1.0-10.0) Eosinophils (%) (Auto) % (0.0-3.0) Basophils (%) (Auto) % (0.0-2.0) Differential Total Cells Counted 100 Neutrophils % (Manual) 53 % (45-75) Lymphocytes % (Manual) 41 % (20-45) Monocytes % (Manual) 6 % (1-10) Eosinophils % (Manual) 0 % (0-3) Basophils % (Manual) 0 % (0-2) Band Neutrophils 0 % (0-8) Platelet Estimate Adequate Platelet Morphology Normal Microcytosis 1+ Sodium Level 143 MMOL/L (136-145) Potassium Level 3.7 MMOL/L (3.5-5.1) Chloride Level 111 MMOL/L (98-107) H Carbon Dioxide Level 22 MMOL/L (21-32) Anion Gap 10 mmol/L (5-15) Blood Urea Nitrogen 14 mg/dL (7-18) Creatinine 1.2 MG/DL (0.55-1.30) Estimat Glomerular Filtration Rate > 60 mL/min (>60) Glucose Level 99 MG/DL (74-106) Uric Acid 4.3 MG/DL (2.6-7.2) Calcium Level 8.0 MG/DL (8.5-10.1) L Phosphorus Level 1.8 MG/DL (2.5-4.9) L Magnesium Level 1.8 MG/DL (1.8-2.4) Total Bilirubin 0.2 MG/DL (0.2-1.0) Aspartate Amino Transf (AST/SGOT) 57 U/L (15-37) H Alanine Aminotransferase (ALT/SGPT) 62 U/L (12-78) Alkaline Phosphatase 98 U/L (46-116) C-Reactive Protein, Quantitative 5.0 mg/dL (0.00-0.90) H Total Protein 6.8 G/DL (6.4-8.2) Albumin 1.9 G/DL (3.4-5.0) L Globulin 4.9 g/dL Albumin/Globulin Ratio 0.4 (1.0-2.7) L Height (Feet): 5 Height (Inches): 10.00 Weight (Pounds): 140 General Appearance: WD/WN, no apparent distress, alert Cardiovascular: normal rate Respiratory/Chest: normal breath sounds, no respiratory distress Abdominal Exam: normal bowel sounds, non tender, soft Extremities: normal range of motion, non-tender Stefanie Singh NP Mar 25, 2019 12:36
--- NOTE | 2019-03-25 12:38 | Infectious Diseases Prog Note ---
Assessment/Plan Assessment/Plan IMPRESSION: Diarrhea, likely infectious. resolving HIV, AIDS CD4=18 Acute renal failure, hypokalemia, hepatitis B, amphetamine abuse. RECOMMENDATION: continue with Cipro, Flagyl. until tomorrow Start on Bactrim & Zithromax prophylaxis Subjective ROS Limited/Unobtainable: No Respiratory: Reports: no symptoms Cardiovascular: Reports: no symptoms Gastrointestinal/Abdominal: Reports: no symptoms Genitourinary: Reports: no symptoms Allergies: Coded Allergies: No Known Allergies (Unverified , 03/23/19) Objective Vital Signs Last 24 Hour Vital Signs Date Time Temp Pulse Resp B/P (MAP) Pulse Ox O2 Delivery O2 Flow Rate FiO2 03/25/19 09:00 Room Air 03/25/19 08:00 98.0 63 14 91/54 (66) 100 03/25/19 04:00 97.9 57 18 94/53 (67) 97 03/25/19 04:00 58 03/25/19 00:00 59 03/25/19 00:00 97.7 59 18 93/63 (73) 100 03/24/19 21:00 Room Air 03/24/19 20:00 48 03/24/19 20:00 97.5 61 20 91/50 (64) 100 03/24/19 16:00 98.1 60 20 91/50 (64) 98 03/24/19 16:00 65 Height (Feet): 5 Height (Inches): 10.00 Weight (Pounds): 140 General Appearance: no acute distress HEENT: mucous membranes moist Respiratory/Chest: lungs clear Cardiovascular: normal rate Abdomen: soft, non tender Extremities: no edema Neurologic/Psychiatric: alert, oriented x 3, responsive Microbiology Date/Time Source Procedure Growth Status 03/23/19 05:00 Nasal Nares - Final Complete 03/23/19 05:00 Nasal Nares - Final Complete 03/23/19 05:00 Nasal Nares MRSA Culture - Final NO METHICILLIN RESISTANT STAPH AUREUS... Complete 03/23/19 11:00 Stool Stool Culture - Final NO SALMONELLA,SHIGELLA OR CAMPYLOBACT... Complete 03/23/19 11:00 Stool Clostridium difficile Toxin Assay - Final Complete 03/23/19 05:00 Rectum VRE Culture - Final NO VANCOMYCIN RESISTANT ENTEROCOCCUS ... Complete Laboratory Tests Test 03/25/19 03:05 03/25/19 05:38 Urine Eosinophils None seen (NONE SEEN) White Blood Count 2.6 K/UL (4.8-10.8) L Red Blood Count 4.54 M/UL (4.70-6.10) L Hemoglobin 11.1 G/DL (14.2-18.0) L Hematocrit 34.1 % (42.0-52.0) L Mean Corpuscular Volume 75 FL (80-99) L Mean Corpuscular Hemoglobin 24.4 PG (27.0-31.0) L Mean Corpuscular Hemoglobin Concent 32.4 G/DL (32.0-36.0) Red Cell Distribution Width 13.2 % (11.6-14.8) Platelet Count 212 K/UL (150-450) Mean Platelet Volume 5.0 FL (6.5-10.1) L Neutrophils (%) (Auto) % (45.0-75.0) Lymphocytes (%) (Auto) % (20.0-45.0) Monocytes (%) (Auto) % (1.0-10.0) Eosinophils (%) (Auto) % (0.0-3.0) Basophils (%) (Auto) % (0.0-2.0) Differential Total Cells Counted 100 Neutrophils % (Manual) 53 % (45-75) Lymphocytes % (Manual) 41 % (20-45) Monocytes % (Manual) 6 % (1-10) Eosinophils % (Manual) 0 % (0-3) Basophils % (Manual) 0 % (0-2) Band Neutrophils 0 % (0-8) Platelet Estimate Adequate Platelet Morphology Normal Microcytosis 1+ Sodium Level 143 MMOL/L (136-145) Potassium Level 3.7 MMOL/L (3.5-5.1) Chloride Level 111 MMOL/L (98-107) H Carbon Dioxide Level 22 MMOL/L (21-32) Anion Gap 10 mmol/L (5-15) Blood Urea Nitrogen 14 mg/dL (7-18) Creatinine 1.2 MG/DL (0.55-1.30) Estimat Glomerular Filtration Rate > 60 mL/min (>60) Glucose Level 99 MG/DL (74-106) Uric Acid 4.3 MG/DL (2.6-7.2) Calcium Level 8.0 MG/DL (8.5-10.1) L Phosphorus Level 1.8 MG/DL (2.5-4.9) L Magnesium Level 1.8 MG/DL (1.8-2.4) Total Bilirubin 0.2 MG/DL (0.2-1.0) Aspartate Amino Transf (AST/SGOT) 57 U/L (15-37) H Alanine Aminotransferase (ALT/SGPT) 62 U/L (12-78) Alkaline Phosphatase 98 U/L (46-116) C-Reactive Protein, Quantitative 5.0 mg/dL (0.00-0.90) H Total Protein 6.8 G/DL (6.4-8.2) Albumin 1.9 G/DL (3.4-5.0) L Globulin 4.9 g/dL Albumin/Globulin Ratio 0.4 (1.0-2.7) L Current Medications Medications (Trade) Dose Ordered Sig/Bessie Route PRN Reason Start Time Stop Time Status Last Admin Dose Admin Acetaminophen (Tylenol) 500 mg Q4H PRN ORAL Mild Pain/Temp > 100.5 03/23/19 07:00 04/22/19 06:59 03/23/19 16:03 Ciprofloxacin (Cipro 250mg tab) 250 mg EVERY 12 HOURS ORAL 03/23/19 21:00 03/30/19 20:59 03/25/19 09:18 Dextrose/ Electrolytes 1,000 ml @ 50 mls/hr Q20H IV 03/25/19 08:00 04/23/19 07:59 03/25/19 09:06 Loperamide HCl (Imodium) 2 mg Q4H PRN ORAL Diarrhea 03/24/19 12:45 04/23/19 12:44 Metronidazole (Flagyl) 500 mg Q8HR ORAL 03/23/19 14:00 03/30/19 13:59 03/25/19 05:40 Midodrine (Pro-Amatine) 2.5 mg THREE TIMES A DAY ORAL 03/24/19 13:00 04/23/19 12:59 03/25/19 12:08 Pantoprazole (Protonix) 40 mg EVERY 12 HOURS ORAL 03/23/19 21:00 04/22/19 20:59 03/25/19 09:18 Potassium Chloride (K-Dur) 40 meq BID ORAL 03/25/19 18:00 04/23/19 08:59 Spironolactone (Aldactone) 25 mg DAILY ORAL 03/24/19 09:00 04/23/19 08:59 Sarwat Yen MD Mar 25, 2019 12:38
--- NOTE | 2019-03-25 12:45 | Cardiac Electrophysiology PN ---
Subjective Subjective [id number] Objective Last 24 Hour Vital Signs Date Time Temp Pulse Resp B/P (MAP) Pulse Ox O2 Delivery O2 Flow Rate FiO2 03/25/19 12:00 98.1 55 16 90/65 (73) 99 03/25/19 09:00 Room Air 03/25/19 08:00 98.0 63 14 91/54 (66) 100 03/25/19 04:00 97.9 57 18 94/53 (67) 97 03/25/19 04:00 58 03/25/19 00:00 59 03/25/19 00:00 97.7 59 18 93/63 (73) 100 03/24/19 21:00 Room Air 03/24/19 20:00 48 03/24/19 20:00 97.5 61 20 91/50 (64) 100 03/24/19 16:00 98.1 60 20 91/50 (64) 98 03/24/19 16:00 65 Intake and Output 03/24/19 03/25/19 18:59 06:59 Intake Total 500 ml 360 ml Balance 500 ml 360 ml Intake Oral 500 ml 360 ml # Voids 3 3 # Bowel Movements 1 Laboratory Tests Test 03/25/19 03:05 03/25/19 05:38 Urine Eosinophils None seen (NONE SEEN) White Blood Count 2.6 K/UL (4.8-10.8) L Red Blood Count 4.54 M/UL (4.70-6.10) L Hemoglobin 11.1 G/DL (14.2-18.0) L Hematocrit 34.1 % (42.0-52.0) L Mean Corpuscular Volume 75 FL (80-99) L Mean Corpuscular Hemoglobin 24.4 PG (27.0-31.0) L Mean Corpuscular Hemoglobin Concent 32.4 G/DL (32.0-36.0) Red Cell Distribution Width 13.2 % (11.6-14.8) Platelet Count 212 K/UL (150-450) Mean Platelet Volume 5.0 FL (6.5-10.1) L Neutrophils (%) (Auto) % (45.0-75.0) Lymphocytes (%) (Auto) % (20.0-45.0) Monocytes (%) (Auto) % (1.0-10.0) Eosinophils (%) (Auto) % (0.0-3.0) Basophils (%) (Auto) % (0.0-2.0) Differential Total Cells Counted 100 Neutrophils % (Manual) 53 % (45-75) Lymphocytes % (Manual) 41 % (20-45) Monocytes % (Manual) 6 % (1-10) Eosinophils % (Manual) 0 % (0-3) Basophils % (Manual) 0 % (0-2) Band Neutrophils 0 % (0-8) Platelet Estimate Adequate Platelet Morphology Normal Microcytosis 1+ Sodium Level 143 MMOL/L (136-145) Potassium Level 3.7 MMOL/L (3.5-5.1) Chloride Level 111 MMOL/L (98-107) H Carbon Dioxide Level 22 MMOL/L (21-32) Anion Gap 10 mmol/L (5-15) Blood Urea Nitrogen 14 mg/dL (7-18) Creatinine 1.2 MG/DL (0.55-1.30) Estimat Glomerular Filtration Rate > 60 mL/min (>60) Glucose Level 99 MG/DL (74-106) Uric Acid 4.3 MG/DL (2.6-7.2) Calcium Level 8.0 MG/DL (8.5-10.1) L Phosphorus Level 1.8 MG/DL (2.5-4.9) L Magnesium Level 1.8 MG/DL (1.8-2.4) Total Bilirubin 0.2 MG/DL (0.2-1.0) Aspartate Amino Transf (AST/SGOT) 57 U/L (15-37) H Alanine Aminotransferase (ALT/SGPT) 62 U/L (12-78) Alkaline Phosphatase 98 U/L (46-116) C-Reactive Protein, Quantitative 5.0 mg/dL (0.00-0.90) H Total Protein 6.8 G/DL (6.4-8.2) Albumin 1.9 G/DL (3.4-5.0) L Globulin 4.9 g/dL Albumin/Globulin Ratio 0.4 (1.0-2.7) L Microbiology Date/Time Source Procedure Growth Status 03/23/19 05:00 Nasal Nares - Final Complete 03/23/19 05:00 Nasal Nares - Final Complete 03/23/19 05:00 Nasal Nares MRSA Culture - Final NO METHICILLIN RESISTANT STAPH AUREUS... Complete 03/23/19 11:00 Stool Stool Culture - Final NO SALMONELLA,SHIGELLA OR CAMPYLOBACT... Complete 03/23/19 11:00 Stool Clostridium difficile Toxin Assay - Final Complete 03/23/19 05:00 Rectum VRE Culture - Final NO VANCOMYCIN RESISTANT ENTEROCOCCUS ... Complete Eligio Lan MD Mar 25, 2019 12:44
[2019-03-25] MEDS ORDERED: Azithromycin 600mg Tab ORAL SCH (14:00)
[2019-03-25] MEDS: Bactrim SS Tab ORAL SCH (14:36)
--- NOTE | 2019-03-25 14:56 | NUR ---
CASE MANAGEMENT:REVIEW 03/25/19 SI:INFECTIOUS DIARRHEA ACUTE RENAL FAILURE. HIV 98.1 55 16 90/65 99% ON RA WBC-2.6 CA-8.0 PHOS-1.8 IS: K-DUR PO BID AZITHROMAX PO QWEEK BACTRIM PO QD CIPRO PO Q12 FLAGYL PO Q8HRS IVF@50/HR ALDACTONE PO QD : TELEMETRY STATUS
[2019-03-25 16:00] VITALS: BP 95/58
--- NOTE | 2019-03-25 17:45 | Consultation ---
DATE OF CONSULTATION: 03/25/2019 CARDIOLOGY CONSULTATION CONSULTING PHYSICIAN: Eligio Lan M.D. REFERRING PHYSICIAN: Beth Sanchez M.D. REASON FOR CONSULTATION: Bradycardia. HISTORY OF PRESENT ILLNESS: The patient is a 44-year-old gentleman with history of chronic hepatitis and HIV who has not been taking any HIV medication and does not know his CD4 count or his viral load. The patient presented to the emergency room complaining of diarrhea for the last 4 days that is profuse. The diarrhea was initially watery and currently is bloody and also with some cramps. On telemetry, the patient had bradycardia with heart rate of high 40 and low 50. The patient has had temperature of 102. At the time of my evaluation, the patient denies any chest pain or shortness of breath. REVIEW OF SYSTEMS: Negative other than what was mentioned in the history of present illness. PAST MEDICAL HISTORY: As mentioned above. FAMILY HISTORY: Noncontributory. SOCIAL HISTORY: He has history of IV drug use in the past, but denies currently. PHYSICAL EXAMINATION: VITAL SIGNS: Show blood pressure of 90/65, pulse is 55, respirations 16, temperature 98.1. HEAD AND NECK: Showed no JVD. LUNGS: Coarse rhonchi. CARDIOVASCULAR: Regular S1 and S2 with no gallop or murmur. ABDOMEN: Soft. EXTREMITIES: No pitting edema. LABORATORY AND DIAGNOSTIC DATA: His labs show white count of , hemoglobin 11.1, hematocrit 34.1, and platelet count 212. Sodium is 142, potassium 3.7, BUN of 14, creatinine 1.2, glucose of 99. His telemetry strip showed bradycardia, heart rate down to 40s, but sinus bradycardia. Tox screen is positive for amphetamine. ASSESSMENT AND PLAN: 1. Bradycardia with heart rate dropping to 40s. This is likely due to midodrine that I will discontinue it. We will watch the patient on telemetry. We will get an echocardiogram for further evaluation and management. 2. Diarrhea, likely infectious. Further evaluation by Dr. Yen. 3. HIV and AIDS. CD4 count is only 18. 4. Hypokalemia. 5. Hepatitis B. 6. Amphetamine abuse. Thank you very much for allowing me to participate in the care of this patient. Please do not hesitate to contact me for any questions regarding my evaluation. Eligio Lan M.D. DR: MARTHA JOB#: [id number] CC:
--- NOTE | 2019-03-25 18:02 | NUR ---
NURSE NOTES: List of nearby HIV screening/Tx clinics and resources provided to pt. Educated pt about importance of Tx adherence and pt verbalized understanding.
--- NOTE | 2019-03-25 19:52 | NUR ---
HAND-OFF: Report given to PONCHO Levin. Pt in stable condition.
--- NOTE | 2019-03-25 19:55 | NUR ---
NURSE NOTES: Received report from Aleksandra Galicia RN. Patient in bed AAO X4 with no complaints of acute pain or distress at this time. Able to walk to the bathroom unassisted, IV line intact and patent. Placed on continuous cardiac monitoring per protocol. Safety precaution in place; siderails X3 up, call light within reach, bed in lowest position, brakes and alarm on at all times. Needs and wants anticipated and attended, will continue plan of care and monitor for any changes noted.
[2019-03-25 20:00] VITALS: BP 104/58
--- NOTE | 2019-03-25 22:29 | General Progress Note ---
Assessment/Plan Problem List: (1) Hepatitis ICD Codes: K75.9 - Inflammatory liver disease, unspecified SNOMED: 201353594 (2) Dehydration ICD Codes: E86.0 - Dehydration SNOMED: 05178659 (3) Diarrhea ICD Codes: R19.7 - Diarrhea, unspecified SNOMED: 62375754 Qualifiers: Qualified Codes: R19.7 - Diarrhea, unspecified (4) Electrolyte imbalance ICD Codes: E87.8 - Other disorders of electrolyte and fluid balance, not elsewhere classified SNOMED: 847200436 (5) Hypokalemia ICD Codes: E87.6 - Hypokalemia SNOMED: 59533318 Status: stable, progressing Assessment/Plan: diarrhea improving await culture afebrile hepatitis hiv r/o infectious diarrhea weak Subjective ROS Limited/Unobtainable: Yes Allergies: Coded Allergies: No Known Allergies (Unverified , 03/23/19) Objective Last 24 Hour Vital Signs Date Time Temp Pulse Resp B/P (MAP) Pulse Ox O2 Delivery O2 Flow Rate FiO2 03/25/19 21:00 Room Air 03/25/19 16:00 51 03/25/19 16:00 97.7 50 18 95/58 (70) 99 03/25/19 12:00 58 03/25/19 12:00 98.1 55 16 90/65 (73) 99 03/25/19 09:00 Room Air 03/25/19 08:00 56 03/25/19 08:00 98.0 63 14 91/54 (66) 100 03/25/19 04:00 97.9 57 18 94/53 (67) 97 03/25/19 04:00 58 03/25/19 00:00 59 03/25/19 00:00 97.7 59 18 93/63 (73) 100 Intake and Output 03/24/19 03/25/19 19:00 07:00 Intake Total 500 ml 360 ml Balance 500 ml 360 ml Intake Oral 500 ml 360 ml # Voids 3 3 # Bowel Movements 1 Laboratory Tests 03/25/19 03:05: Urine Eosinophils None seen 03/25/19 05:38: White Blood Count 2.6L, Red Blood Count 4.54L, Hemoglobin 11.1L, Hematocrit 34.1L, Mean Corpuscular Volume 75L, Mean Corpuscular Hemoglobin 24.4L, Mean Corpuscular Hemoglobin Concent 32.4, Red Cell Distribution Width 13.2, Platelet Count 212, Mean Platelet Volume 5.0L, Neutrophils (%) (Auto) , Lymphocytes (%) ( Auto) , Monocytes (%) (Auto) , Eosinophils (%) (Auto) , Basophils (%) (Auto) , Differential Total Cells Counted 100, Neutrophils % (Manual) 53, Lymphocytes % ( Manual) 41, Monocytes % (Manual) 6, Eosinophils % (Manual) 0, Basophils % ( Manual) 0, Band Neutrophils 0, Platelet Estimate Adequate, Platelet Morphology Normal, Microcytosis 1+, Sodium Level 143, Potassium Level 3.7, Chloride Level 111H, Carbon Dioxide Level 22, Anion Gap 10, Blood Urea Nitrogen 14, Creatinine 1.2, Estimat Glomerular Filtration Rate > 60, Glucose Level 99, Uric Acid 4.3, Calcium Level 8.0L, Phosphorus Level 1.8L, Magnesium Level 1.8, Total Bilirubin 0.2, Aspartate Amino Transf (AST/SGOT) 57H, Alanine Aminotransferase (ALT/SGPT) 62, Alkaline Phosphatase 98, C-Reactive Protein, Quantitative 5.0H, Total Protein 6.8, Albumin 1.9L, Globulin 4.9, Albumin/Globulin Ratio 0.4L Height (Feet): 5 Height (Inches): 10.00 Weight (Pounds): 140 Neck: supple Cardiovascular: normal rate Respiratory/Chest: lungs clear Abdomen: soft Beth Sanchez MD Mar 25, 2019 22:29
[2019-03-26] VITALS: BP 107/65
--- NOTE | 2019-03-26 02:38 | NUR ---
NURSE NOTES: Patient in bed asleep with no S/S of distress. Will continue to monitor.
[2019-03-26 04:00] VITALS: BP 102/62
[2019-03-26] MEDS: metroNIDAZOLE 500mg tab ORAL SCH ×3 (05:28→21:28)
--- NOTE | 2019-03-26 07:00 | NUR ---
HAND-OFF: Report given to Suze Tabares RN. Patient in bed in stable condition, endorsed plan of care.
--- NOTE | 2019-03-26 07:00 | NUR ---
NURSE NOTES: received patient report from bethel roy. patient is on bed awake, comfortably eating breakfast. SB on the monitor. on RA. bed is low and locked for safety.will follow plan of care.
[2019-03-26 07:59] VITALS: BP 95/58
[2019-03-26] MEDS: Bactrim SS Tab ORAL SCH (08:02)
[2019-03-26] MEDS: Spironolactone 25mg tab ORAL SCH (08:03)
[2019-03-26 08:14] LABS: HEMATOCRIT 35.1 % (42.0-52.0); HEMOGLOBIN 11.4 G/DL (14.2-18.0); MEAN CORPUSCULAR VOLUME 75 FL (80-99); PLATELET COUNT 216 K/UL (150-450); RED BLOOD COUNT 4.65 M/UL (4.70-6.10); RED CELL DISTRIBUTION WIDTH 13.5 % (11.6-14.8); WHITE BLOOD COUNT 3.3 K/UL (4.8-10.8)
--- NOTE | 2019-03-26 08:23 | Hematology/Onc Progress Note ---
Assessment/Plan Assessment/Plan Assessment and Recs: # Leukopenia -- decreased wbc on admission, no historical studies to compare, likely due to hx chronic hepatitis B and hiv as well, contributors as well as splenomegaly++ and hepatomegaly++ --> trend as needed wbc 3.3-->2.7-->2.6 --> ANC goal is >1500 --> abd us ordered as well in fact does show large spleen and hepatomegaly --> neupogen to be given on prn basis # Anemia due to chronic disease --> due to hep and hiv --> trend as needed 11-->10.6-->11.1-->11.4 --> hold off on epo or iron --> no hemolysis noted # Diarrhea cause of low k --> r/o infectious causes, stool o&p ==> abx as needed per id (flagyl)--> cipro/flagyl-->bactrim/azithro # ARF (acute renal failure) --> on ivf as needed --> per renal # Hypokalemia --> replete with K as needed # Balanitis --> uro recs prn # HIV --> on ppx has been started by id Time of note does not correspond to time patient was seen Greatly appreciate consultation. Subjective Constitutional: Denies: no symptoms, chills, fever, malaise, weakness, other HEENT: Denies: no symptoms, eye pain, blurred vision, tearing, double vision, ear pain, ear discharge, nose pain, nose congestion, throat pain, throat swelling, mouth pain, mouth swelling, other Cardiovascular: Denies: no symptoms, chest pain, edema, irregular heart rate, lightheadedness, palpitations, syncope, other Respiratory: Denies: no symptoms, cough, shortness of breath, SOB with excertion, SOB at rest, sputum, wheezing, other Gastrointestinal/Abdominal: Denies: no symptoms, abdomen distended, abdominal pain, black stools, tarry stools, blood in stool, constipated, diarrhea, difficulty swallowing, nausea, poor appetite, poor fluid intake, rectal bleeding , vomiting, other Neurologic/Psychiatric: Denies: no symptoms, anxiety, depressed, emotional problems, headache, numbness, paresthesia, pre-existing deficit, seizure, tingling, tremors, weakness, other Endocrine: Denies: no symptoms, excessive sweating, flushing, intolerance to cold, intolerance to heat, increased hunger, increased thirst, increased urine, unexplained weight gain, unexplained weight loss, other Allergies: Coded Allergies: No Known Allergies (Unverified , 03/23/19) Subjective 03/24: on flagyl, dw rn and may have c.diff, labs have been reviewed 03/25: on abx, vs stable, no f/c, no distress, no pain, labs noted 03/26: awake, alert, no complaints, no f/c, no bleeding Objective Objective Current Medications Medications (Trade) Dose Ordered Sig/Bessie Route PRN Reason Start Time Stop Time Status Last Admin Dose Admin Acetaminophen (Tylenol) 500 mg Q4H PRN ORAL Mild Pain/Temp > 100.5 03/23/19 07:00 04/22/19 06:59 03/23/19 16:03 Azithromycin (Zithromax) 1,200 mg ONCE A WEEK ORAL 03/25/19 14:00 04/01/19 13:59 03/25/19 14:36 Ciprofloxacin (Cipro 250mg tab) 250 mg EVERY 12 HOURS ORAL 03/23/19 21:00 03/30/19 20:59 03/26/19 08:02 Dextrose/ Electrolytes 1,000 ml @ 50 mls/hr Q20H IV 03/25/19 08:00 04/23/19 07:59 03/26/19 04:22 Loperamide HCl (Imodium) 2 mg Q4H PRN ORAL Diarrhea 03/24/19 12:45 04/23/19 12:44 Metronidazole (Flagyl) 500 mg Q8HR ORAL 03/23/19 14:00 03/30/19 13:59 03/26/19 05:28 Pantoprazole (Protonix) 40 mg EVERY 12 HOURS ORAL 03/23/19 21:00 04/22/19 20:59 03/26/19 08:02 Potassium Chloride (K-Dur) 40 meq BID ORAL 03/25/19 18:00 04/23/19 08:59 03/26/19 08:03 Spironolactone (Aldactone) 25 mg DAILY ORAL 03/24/19 09:00 04/23/19 08:59 Trimethoprim/ Sulfamethoxazole (Bactrim Single Strength) 1 tab DAILY ORAL 03/25/19 14:00 04/01/19 13:59 03/26/19 08:02 Last 24 Hour Vital Signs Date Time Temp Pulse Resp B/P (MAP) Pulse Ox O2 Delivery O2 Flow Rate FiO2 03/26/19 07:59 97.0 54 19 95/58 (70) 99 03/26/19 04:00 98.8 56 18 102/62 (75) 100 03/26/19 04:00 48 03/26/19 00:00 97.9 56 20 107/65 (79) 100 03/26/19 00:00 58 03/25/19 21:00 Room Air 03/25/19 20:00 50 03/25/19 20:00 97.3 49 21 104/58 (73) 100 03/25/19 16:00 51 03/25/19 16:00 97.7 50 18 95/58 (70) 99 03/25/19 12:00 58 03/25/19 12:00 98.1 55 16 90/65 (73) 99 03/25/19 09:00 Room Air 03/25/19 08:00 56 03/25/19 08:00 98.0 63 14 91/54 (66) 100 03/25/19 04:00 97.9 57 18 94/53 (67) 97 03/25/19 04:00 58 03/25/19 00:00 59 03/25/19 00:00 97.7 59 18 93/63 (73) 100 03/24/19 21:00 Room Air 03/24/19 20:00 48 03/24/19 20:00 97.5 61 20 91/50 (64) 100 03/24/19 16:00 98.1 60 20 91/50 (64) 98 03/24/19 16:00 65 03/24/19 12:00 98.1 62 20 87/53 (64) 98 03/24/19 12:00 69 03/24/19 09:00 Room Air Intake and Output 03/25/19 03/26/19 19:00 07:00 Intake Total 1240 ml 290 ml Balance 1240 ml 290 ml Intake Oral 790 ml 240 ml IV Total 450 ml 50 ml # Voids 3 1 # Bowel Movements 2 Labs Test 03/23/19 08:30 03/24/19 05:30 03/25/19 03:05 03/25/19 05:38 White Blood Count 3.3 K/UL (4.8-10.8) 2.6 x10E3/uL (3.4-10.8) 2.6 K/UL (4.8-10.8) Red Blood Count 4.76 M/UL (4.70-6.10) 4.50 M/UL (4.70-6.10) 4.54 M/UL (4.70-6.10) Hemoglobin 11.6 G/DL (14.2-18.0) 10.9 G/DL (14.2-18.0) 11.1 G/DL (14.2-18.0) Hematocrit 35.4 % (42.0-52.0) 33.6 % (42.0-52.0) 34.1 % (42.0-52.0) Mean Corpuscular Volume 74 FL (80-99) 75 FL (80-99) 75 FL (80-99) Mean Corpuscular Hemoglobin 24.4 PG (27.0-31.0) 24.3 PG (27.0-31.0) 24.4 PG (27.0-31.0) Mean Corpuscular Hemoglobin Concent 32.8 G/DL (32.0-36.0) 32.5 G/DL (32.0-36.0) 32.4 G/DL (32.0-36.0) Red Cell Distribution Width 13.0 % (11.6-14.8) 12.7 % (11.6-14.8) 13.2 % (11.6-14.8) Platelet Count 211 K/UL (150-450) 221 K/UL (150-450) 212 K/UL (150-450) Mean Platelet Volume 5.2 FL (6.5-10.1) 5.1 FL (6.5-10.1) 5.0 FL (6.5-10.1) Neutrophils (%) (Auto) % (45.0-75.0) % (45.0-75.0) % (45.0-75.0) Lymphocytes (%) (Auto) % (20.0-45.0) % (20.0-45.0) % (20.0-45.0) Monocytes (%) (Auto) % (1.0-10.0) % (1.0-10.0) % (1.0-10.0) Eosinophils (%) (Auto) % (0.0-3.0) % (0.0-3.0) % (0.0-3.0) Basophils (%) (Auto) % (0.0-2.0) % (0.0-2.0) % (0.0-2.0) Differential Total Cells Counted 100 100 100 Neutrophils % (Manual) 59 % (45-75) 55 % (45-75) 53 % (45-75) Lymphocytes % (Manual) 24 % (20-45) 38 % (20-45) 41 % (20-45) Monocytes % (Manual) 15 % (1-10) 5 % (1-10) 6 % (1-10) Eosinophils % (Manual) 1 % (0-3) 2 % (0-3) 0 % (0-3) Basophils % (Manual) 1 % (0-2) 0 % (0-2) 0 % (0-2) Band Neutrophils 0 % (0-8) 0 % (0-8) 0 % (0-8) Platelet Estimate Adequate Adequate Adequate Platelet Morphology Normal Normal Normal Anisocytosis 1+ Microcytosis 1+ 1+ 1+ Sodium Level 135 MMOL/L (136-145) 140 MMOL/L (136-145) 143 MMOL/L (136-145) Potassium Level 2.7 MMOL/L (3.5-5.1) 2.7 MMOL/L (3.5-5.1) 3.7 MMOL/L (3.5-5.1) Chloride Level 102 MMOL/L (98-107) 107 MMOL/L (98-107) 111 MMOL/L (98-107) Carbon Dioxide Level 21 MMOL/L (21-32) 23 MMOL/L (21-32) 22 MMOL/L (21-32) Anion Gap 12 mmol/L (5-15) 10 mmol/L (5-15) 10 mmol/L (5-15) Blood Urea Nitrogen 25 mg/dL (7-18) 21 mg/dL (7-18) 14 mg/dL (7-18) Creatinine 1.7 MG/DL (0.55-1.30) 1.5 MG/DL (0.55-1.30) 1.2 MG/DL (0.55-1.30) Estimat Glomerular Filtration Rate 44.2 mL/min (>60) 51.1 mL/min (>60) > 60 mL/min (>60) Glucose Level 108 MG/DL (74-106) 113 MG/DL (74-106) 99 MG/DL (74-106) Uric Acid 7.2 MG/DL (2.6-7.2) 5.6 MG/DL (2.6-7.2) 4.3 MG/DL (2.6-7.2) Calcium Level 7.6 MG/DL (8.5-10.1) 7.8 MG/DL (8.5-10.1) 8.0 MG/DL (8.5-10.1) Phosphorus Level 2.8 MG/DL (2.5-4.9) 2.7 MG/DL (2.5-4.9) 1.8 MG/DL (2.5-4.9) Magnesium Level 2.0 MG/DL (1.8-2.4) 2.2 MG/DL (1.8-2.4) 1.8 MG/DL (1.8-2.4) Iron Level 14 ug/dL (50-175) Total Iron Binding Capacity 130 ug/dL (250-450) Percent Iron Saturation 11 % (15-50) Unsaturated Iron Binding 116 ug/dL (112-346) Ferritin 202 NG/ML (8-388) Total Bilirubin 0.4 MG/DL (0.2-1.0) 0.2 MG/DL (0.2-1.0) 0.2 MG/DL (0.2-1.0) Aspartate Amino Transf (AST/SGOT) 60 U/L (15-37) 74 U/L (15-37) 57 U/L (15-37) Alanine Aminotransferase (ALT/SGPT) 70 U/L (12-78) 74 U/L (12-78) 62 U/L (12-78) Alkaline Phosphatase 84 U/L (46-116) 92 U/L (46-116) 98 U/L (46-116) C-Reactive Protein, Quantitative 12.3 mg/dL (0.00-0.90) 11.1 mg/dL (0.00-0.90) 5.0 mg/dL (0.00-0.90) Total Protein 7.0 G/DL (6.4-8.2) 6.8 G/DL (6.4-8.2) 6.8 G/DL (6.4-8.2) Albumin 2.1 G/DL (3.4-5.0) 1.9 G/DL (3.4-5.0) 1.9 G/DL (3.4-5.0) Globulin 4.9 g/dL 4.9 g/dL 4.9 g/dL Albumin/Globulin Ratio 0.4 (1.0-2.7) 0.4 (1.0-2.7) 0.4 (1.0-2.7) Triglycerides Level 53 MG/DL (30-150) Cholesterol Level 58 MG/DL (< 200) LDL Cholesterol 32 mg/dL (<100) HDL Cholesterol 19 MG/DL (40-60) Cholesterol/HDL Ratio 3.1 (3.3-4.4) Vitamin B12 Level 1723 PG/ML (193-986) Folate 14.3 NG/ML (8.6-58.9) Hepatitis A IgM Antibody Negative (Negative) Hepatitis B Surface Antigen Positive (Negative) Hepatitis B Core IgM Antibody Negative (Negative) Hepatitis C Antibody 0.2 s/co ratio (0.0-0.9) HIV (1&2) Antibody Rapid Preliminary positive Lymphocytes 28 % (Not Estab.) Nucleated Red Blood Cells (.) Pro-B-Type Natriuretic Peptide 177 pg/mL (0-125) Lipase 951 U/L (73-393) Cortisol AM Sample 5.2 UG/DL Absolute Lymphocytes (Cell Immunity 0.7 x10E3/uL (0.7-3.1) Percent CD3 Cells 60.5 % (57.5-86.2) Absolute CD3 Count 424 /uL (622-2402) Percent CD4 Cells 2.6 % (30.8-58.5) Absolute CD4 Count 18 /uL (359-1519) T-Lymphocyte CD4/CD8 Ratio 0.05 (0.92-3.72) Percent CD8 Cells 56.7 % (12.0-35.5) Absolute CD8 Count 397 /uL (109-897) Urine Eosinophils None seen (NONE SEEN) Test 03/26/19 06:35 White Blood Count 3.3 K/UL (4.8-10.8) Red Blood Count 4.65 M/UL (4.70-6.10) Hemoglobin 11.4 G/DL (14.2-18.0) Hematocrit 35.1 % (42.0-52.0) Mean Corpuscular Volume 75 FL (80-99) Mean Corpuscular Hemoglobin 24.6 PG (27.0-31.0) Mean Corpuscular Hemoglobin Concent 32.6 G/DL (32.0-36.0) Red Cell Distribution Width 13.5 % (11.6-14.8) Platelet Count 216 K/UL (150-450) Mean Platelet Volume 4.6 FL (6.5-10.1) Neutrophils (%) (Auto) % (45.0-75.0) Lymphocytes (%) (Auto) % (20.0-45.0) Monocytes (%) (Auto) % (1.0-10.0) Eosinophils (%) (Auto) % (0.0-3.0) Basophils (%) (Auto) % (0.0-2.0) Height (Feet): 5 Height (Inches): 10.00 Weight (Pounds): 140 Objective Physical Exam Vitals: reviewed Gen: not in acute distress Pulm: CTAB CV: rrr, no mgr GI: nontender, nondistended MSKL normal rom Psychiatric: mood/affect normal Elian Kessler MD Mar 26, 2019 08:23
[2019-03-26 08:31] LABS: ANION GAP 9 mmol/L (5-15); BLOOD UREA NITROGEN 10 mg/dL (7-18); CALCIUM 8.1 MG/DL (8.5-10.1); CARBON DIOXIDE 21 MMOL/L (21-32); CHLORIDE 113 MMOL/L (98-107); CREATININE 1.1 MG/DL (0.55-1.30); POTASSIUM 4.6 MMOL/L (3.5-5.1); SODIUM 143 MMOL/L (136-145)
--- NOTE | 2019-03-26 10:35 | General Progress Note ---
Assessment/Plan Problem List: (1) Balanitis ICD Codes: N48.1 - Balanitis SNOMED: 42883352 (2) ARF (acute renal failure) ICD Codes: N17.9 - Acute kidney failure, unspecified SNOMED: 58789095 Qualifiers: Qualified Codes: N17.9 - Acute kidney failure, unspecified (3) Hepatitis ICD Codes: K75.9 - Inflammatory liver disease, unspecified SNOMED: 200928165 (4) Dehydration ICD Codes: E86.0 - Dehydration SNOMED: 52377780 (5) Diarrhea ICD Codes: R19.7 - Diarrhea, unspecified SNOMED: 01480196 Qualifiers: Qualified Codes: R19.7 - Diarrhea, unspecified (6) Electrolyte imbalance ICD Codes: E87.8 - Other disorders of electrolyte and fluid balance, not elsewhere classified SNOMED: 068896673 (7) Amphetamine abuse ICD Codes: F15.10 - Other stimulant abuse, uncomplicated SNOMED: 50343058 (8) Hypokalemia ICD Codes: E87.6 - Hypokalemia SNOMED: 56757682 Status: stable, progressing Assessment/Plan: diet ivf abx cbc bmp am Subjective Constitutional: Reports: weakness Allergies: Coded Allergies: No Known Allergies (Unverified , 03/23/19) All Systems: reviewed and negative except above Subjective sleepy in bed Objective Last 24 Hour Vital Signs Date Time Temp Pulse Resp B/P (MAP) Pulse Ox O2 Delivery O2 Flow Rate FiO2 03/26/19 09:00 Room Air 03/26/19 08:00 55 03/26/19 07:59 97.0 54 19 95/58 (70) 99 03/26/19 04:00 98.8 56 18 102/62 (75) 100 03/26/19 04:00 48 03/26/19 00:00 97.9 56 20 107/65 (79) 100 03/26/19 00:00 58 03/25/19 21:00 Room Air 03/25/19 20:00 50 03/25/19 20:00 97.3 49 21 104/58 (73) 100 03/25/19 16:00 51 03/25/19 16:00 97.7 50 18 95/58 (70) 99 03/25/19 12:00 58 03/25/19 12:00 98.1 55 16 90/65 (73) 99 Intake and Output 03/25/19 03/26/19 19:00 07:00 Intake Total 1240 ml 290 ml Balance 1240 ml 290 ml Intake Oral 790 ml 240 ml IV Total 450 ml 50 ml # Voids 3 1 # Bowel Movements 2 Laboratory Tests 03/26/19 06:35: White Blood Count 3.3L, Red Blood Count 4.65L, Hemoglobin 11.4L, Hematocrit 35.1L, Mean Corpuscular Volume 75L, Mean Corpuscular Hemoglobin 24.6L, Mean Corpuscular Hemoglobin Concent 32.6, Red Cell Distribution Width 13.5, Platelet Count 216, Mean Platelet Volume 4.6L, Neutrophils (%) (Auto) , Lymphocytes (%) ( Auto) , Monocytes (%) (Auto) , Eosinophils (%) (Auto) , Basophils (%) (Auto) , Differential Total Cells Counted 100, Neutrophils % (Manual) 52, Lymphocytes % ( Manual) 33, Monocytes % (Manual) 12H, Eosinophils % (Manual) 2, Basophils % ( Manual) 0, Myelocytes % 1H, Band Neutrophils 0, Platelet Estimate Adequate, Platelet Morphology Normal, Microcytosis 2+, Sodium Level 143, Potassium Level 4.6, Chloride Level 113H, Carbon Dioxide Level 21, Anion Gap 9, Blood Urea Nitrogen 10, Creatinine 1.1, Estimat Glomerular Filtration Rate > 60, Glucose Level 84, Calcium Level 8.1L, Phosphorus Level 2.0L, Magnesium Level 1.7L Height (Feet): 5 Height (Inches): 10.00 Weight (Pounds): 140 General Appearance: lethargic EENT: normal ENT inspection Neck: normal alignment Cardiovascular: normal peripheral pulses, normal rate, regular rhythm Respiratory/Chest: chest wall non-tender, lungs clear, normal breath sounds Abdomen: normal bowel sounds, non tender, soft Extremities: normal inspection Edema: no edema noted Arm (L), no edema noted Arm (R), no edema noted Leg (L), no edema noted Leg (R), no edema noted Pedal (L), no edema noted Pedal (R), no edema noted Generalized Neurologic: motor weakness Skin: normal pigmentation, warm/dry Umesh Sepulveda DO Mar 26, 2019 10:35
--- NOTE | 2019-03-26 11:55 | Nephrology Progress Note ---
Assessment/Plan Status: stable, progressing Assessment/Plan: A/P 1) Acute Renal Failure- resolved 2) Dehydration- resolved 3) Persistant Diarrhea- mgmt per GI HIV status and Hep B 4) Electrolyte Imbalance- replace Mg and phos today urine + for amphetamins Subjective Date patient seen: Mar 26, 2019 Time patient seen: 11:51 ROS Limited/Unobtainable: No Allergies: Coded Allergies: No Known Allergies (Unverified , 03/23/19) Subjective Patient resting in no overt distress Objective Last 24 Hour Vital Signs Date Time Temp Pulse Resp B/P (MAP) Pulse Ox O2 Delivery O2 Flow Rate FiO2 03/26/19 09:00 Room Air 03/26/19 08:00 55 03/26/19 07:59 97.0 54 19 95/58 (70) 99 03/26/19 04:00 98.8 56 18 102/62 (75) 100 03/26/19 04:00 48 03/26/19 00:00 97.9 56 20 107/65 (79) 100 03/26/19 00:00 58 03/25/19 21:00 Room Air 03/25/19 20:00 50 03/25/19 20:00 97.3 49 21 104/58 (73) 100 03/25/19 16:00 51 03/25/19 16:00 97.7 50 18 95/58 (70) 99 03/25/19 12:00 58 03/25/19 12:00 98.1 55 16 90/65 (73) 99 Intake and Output 03/25/19 03/26/19 18:59 06:59 Intake Total 1240 ml 290 ml Balance 1240 ml 290 ml Intake Oral 790 ml 240 ml IV Total 450 ml 50 ml # Voids 3 1 # Bowel Movements 2 Laboratory Tests 03/26/19 06:35: White Blood Count 3.3L, Red Blood Count 4.65L, Hemoglobin 11.4L, Hematocrit 35.1L, Mean Corpuscular Volume 75L, Mean Corpuscular Hemoglobin 24.6L, Mean Corpuscular Hemoglobin Concent 32.6, Red Cell Distribution Width 13.5, Platelet Count 216, Mean Platelet Volume 4.6L, Neutrophils (%) (Auto) , Lymphocytes (%) ( Auto) , Monocytes (%) (Auto) , Eosinophils (%) (Auto) , Basophils (%) (Auto) , Differential Total Cells Counted 100, Neutrophils % (Manual) 52, Lymphocytes % ( Manual) 33, Monocytes % (Manual) 12H, Eosinophils % (Manual) 2, Basophils % ( Manual) 0, Myelocytes % 1H, Band Neutrophils 0, Platelet Estimate Adequate, Platelet Morphology Normal, Microcytosis 2+, Sodium Level 143, Potassium Level 4.6, Chloride Level 113H, Carbon Dioxide Level 21, Anion Gap 9, Blood Urea Nitrogen 10, Creatinine 1.1, Estimat Glomerular Filtration Rate > 60, Glucose Level 84, Calcium Level 8.1L, Phosphorus Level 2.0L, Magnesium Level 1.7L Height (Feet): 5 Height (Inches): 10.00 Weight (Pounds): 140 General Appearance: no apparent distress EENT: normal ENT inspection Neck: normal alignment, supple Cardiovascular: normal rate, regular rhythm Respiratory/Chest: lungs clear, normal breath sounds Abdomen: non tender, soft Edema: no edema noted Arm (L), no edema noted Arm (R), no edema noted Leg (L), no edema noted Leg (R), no edema noted Pedal (L), no edema noted Pedal (R), no edema noted Generalized Kalin Rey MD Mar 26, 2019 11:55
[2019-03-26 12:00] VITALS: BP 100/55
[2019-03-26] MEDS ORDERED: Sodium Phosphate 10 MM in NS 275 ML IVPB ONE (14:00)
--- NOTE | 2019-03-26 14:18 | Cardiac Electrophysiology PN ---
Assessment/Plan Assessment/Plan 1. Bradycardia with heart rate dropping to 40s. Better off midodrine. Echocardiogram pending 2. Diarrhea, likely infectious. Further evaluation by Dr. Yen. 3. HIV and AIDS. CD4 count is only 18. 4. Hypokalemia. 5. Hepatitis B. 6. Amphetamine abuse. JAVIER RN Subjective Subjective Alert in NAD. No further bradycardia Objective Last 24 Hour Vital Signs Date Time Temp Pulse Resp B/P (MAP) Pulse Ox O2 Delivery O2 Flow Rate FiO2 03/26/19 12:00 98.2 59 18 100/55 (70) 98 03/26/19 11:42 56 03/26/19 09:00 Room Air 03/26/19 08:00 55 03/26/19 07:59 97.0 54 19 95/58 (70) 99 03/26/19 04:00 98.8 56 18 102/62 (75) 100 03/26/19 04:00 48 03/26/19 00:00 97.9 56 20 107/65 (79) 100 03/26/19 00:00 58 03/25/19 21:00 Room Air 03/25/19 20:00 50 03/25/19 20:00 97.3 49 21 104/58 (73) 100 03/25/19 16:00 51 03/25/19 16:00 97.7 50 18 95/58 (70) 99 Intake and Output 03/25/19 03/26/19 18:59 06:59 Intake Total 1240 ml 290 ml Balance 1240 ml 290 ml Intake Oral 790 ml 240 ml IV Total 450 ml 50 ml # Voids 3 1 # Bowel Movements 2 Laboratory Tests Test 03/26/19 06:35 White Blood Count 3.3 K/UL (4.8-10.8) L Red Blood Count 4.65 M/UL (4.70-6.10) L Hemoglobin 11.4 G/DL (14.2-18.0) L Hematocrit 35.1 % (42.0-52.0) L Mean Corpuscular Volume 75 FL (80-99) L Mean Corpuscular Hemoglobin 24.6 PG (27.0-31.0) L Mean Corpuscular Hemoglobin Concent 32.6 G/DL (32.0-36.0) Red Cell Distribution Width 13.5 % (11.6-14.8) Platelet Count 216 K/UL (150-450) Mean Platelet Volume 4.6 FL (6.5-10.1) L Neutrophils (%) (Auto) % (45.0-75.0) Lymphocytes (%) (Auto) % (20.0-45.0) Monocytes (%) (Auto) % (1.0-10.0) Eosinophils (%) (Auto) % (0.0-3.0) Basophils (%) (Auto) % (0.0-2.0) Differential Total Cells Counted 100 Neutrophils % (Manual) 52 % (45-75) Lymphocytes % (Manual) 33 % (20-45) Monocytes % (Manual) 12 % (1-10) H Eosinophils % (Manual) 2 % (0-3) Basophils % (Manual) 0 % (0-2) Myelocytes % 1 % (0-0) H Band Neutrophils 0 % (0-8) Platelet Estimate Adequate Platelet Morphology Normal Microcytosis 2+ Sodium Level 143 MMOL/L (136-145) Potassium Level 4.6 MMOL/L (3.5-5.1) Chloride Level 113 MMOL/L (98-107) H Carbon Dioxide Level 21 MMOL/L (21-32) Anion Gap 9 mmol/L (5-15) Blood Urea Nitrogen 10 mg/dL (7-18) Creatinine 1.1 MG/DL (0.55-1.30) Estimat Glomerular Filtration Rate > 60 mL/min (>60) Glucose Level 84 MG/DL (74-106) Calcium Level 8.1 MG/DL (8.5-10.1) L Phosphorus Level 2.0 MG/DL (2.5-4.9) L Magnesium Level 1.7 MG/DL (1.8-2.4) L Objective HEAD AND NECK: Showed no JVD. LUNGS: Coarse rhonchi. CARDIOVASCULAR: Regular S1 and S2 with no gallop or murmur. ABDOMEN: Soft. EXTREMITIES: No pitting edema. Eligio Lan MD Mar 26, 2019 14:18
[2019-03-26 16:00] VITALS: BP 98/59
--- NOTE | 2019-03-26 19:24 | NUR ---
NURSE NOTES: Received report from Selin ISAAC. Patient in bed AO X4 with no complaints of acute pain or distress at this time. Able to walk to the bathroom unassisted, IV line intact and patent. Placed on continuous cardiac monitoring per protocol. Safety precaution in place; siderails X3 up, call light within reach, bed in lowest position, brakes and alarm on at all times. Needs and wants anticipated and attended, will continue plan of care and monitor for any changes noted.
--- NOTE | 2019-03-26 19:31 | NUR ---
HAND-OFF: Report given to steff roy.
[2019-03-26 20:00] VITALS: BP 98/62
[2019-03-27] VITALS: BP 97/58
[2019-03-27 01:21] VITALS: BP 97/58
[2019-03-27 04:00] VITALS: BP 107/60
[2019-03-27] MEDS: metroNIDAZOLE 500mg tab ORAL SCH (05:44)
[2019-03-27 07:07] LABS: HEMOGLOBIN 11.2 G/DL (14.2-18.0); MEAN CORPUSCULAR VOLUME 75 FL (80-99); PLATELET COUNT 192 K/UL (150-450); RED BLOOD COUNT 4.56 M/UL (4.70-6.10); RED CELL DISTRIBUTION WIDTH 13.2 % (11.6-14.8); WHITE BLOOD COUNT 3.2 K/UL (4.8-10.8)
--- NOTE | 2019-03-27 07:20 | NUR ---
NURSE NOTES: Received report from PONCHO Adair. Patient in bed AO X4. Patient denies pain at this time. Able to walk to the bathroom unassisted. IV line intact and patent. Placed on continuous cardiac monitoring per protocol. Safety precaution in place; side rails X 2 up, call light within reach, bed in lowest position, brakes and alarm on at all times. Will continue plan of care and monitor for any changes noted.
[2019-03-27 07:22] LABS: ANION GAP 6 mmol/L (5-15); BLOOD UREA NITROGEN 8 mg/dL (7-18); CALCIUM 8.2 MG/DL (8.5-10.1); CARBON DIOXIDE 23 MMOL/L (21-32); CHLORIDE 112 MMOL/L (98-107); CREATININE 0.9 MG/DL (0.55-1.30); POTASSIUM 4.6 MMOL/L (3.5-5.1); SODIUM 141 MMOL/L (136-145)
--- NOTE | 2019-03-27 07:33 | NUR ---
HAND-OFF: Report given to PONCHO Sharma. Endorsed plan of care.
[2019-03-27 08:00] VITALS: BP 92/53
[2019-03-27] MEDS: Spironolactone 25mg tab ORAL SCH (09:00)
[2019-03-27] MEDS: Bactrim SS Tab ORAL SCH (09:01)
--- NOTE | 2019-03-27 10:33 | General Progress Note ---
Assessment/Plan Problem List: (1) Balanitis ICD Codes: N48.1 - Balanitis SNOMED: 97137080 (2) ARF (acute renal failure) ICD Codes: N17.9 - Acute kidney failure, unspecified SNOMED: 52285328 Qualifiers: Qualified Codes: N17.9 - Acute kidney failure, unspecified (3) Hepatitis ICD Codes: K75.9 - Inflammatory liver disease, unspecified SNOMED: 240579847 (4) Dehydration ICD Codes: E86.0 - Dehydration SNOMED: 97465297 (5) Diarrhea ICD Codes: R19.7 - Diarrhea, unspecified SNOMED: 99879210 Qualifiers: Qualified Codes: R19.7 - Diarrhea, unspecified (6) Electrolyte imbalance ICD Codes: E87.8 - Other disorders of electrolyte and fluid balance, not elsewhere classified SNOMED: 434548848 (7) Amphetamine abuse ICD Codes: F15.10 - Other stimulant abuse, uncomplicated SNOMED: 93414830 (8) Hypokalemia ICD Codes: E87.6 - Hypokalemia SNOMED: 22961215 Status: stable, progressing Assessment/Plan: diet ivf abx cbc bmp am Subjective Constitutional: Reports: weakness Allergies: Coded Allergies: No Known Allergies (Unverified , 03/23/19) All Systems: reviewed and negative except above Subjective sleepy in bed Objective Last 24 Hour Vital Signs Date Time Temp Pulse Resp B/P (MAP) Pulse Ox O2 Delivery O2 Flow Rate FiO2 03/27/19 08:00 98.2 54 21 92/53 (66) 100 03/27/19 07:43 70 03/27/19 04:00 59 03/27/19 04:00 98.4 59 17 107/60 (76) 99 03/27/19 00:00 57 03/27/19 00:00 98.2 57 20 97/58 (71) 94 03/26/19 21:00 Room Air 03/26/19 20:00 55 03/26/19 20:00 98.3 55 20 98/62 (74) 100 03/26/19 16:00 96.6 60 18 98/59 (72) 98 03/26/19 15:48 48 03/26/19 12:00 98.2 59 18 100/55 (70) 98 03/26/19 11:42 56 Intake and Output 03/26/19 03/27/19 19:00 07:00 Intake Total 1378.334 ml Output Total 800 ml 1100 ml Balance 578.334 ml -1100 ml Intake Oral 500 ml IV Total 878.334 ml Output Urine Total 800 ml 1100 ml # Voids 3 4 # Bowel Movements 2 Laboratory Tests 03/27/19 06:20: White Blood Count 3.2L, Red Blood Count 4.56L, Hemoglobin 11.2L, Hematocrit 34.0L, Mean Corpuscular Volume 75L, Mean Corpuscular Hemoglobin 24.5L, Mean Corpuscular Hemoglobin Concent 32.8, Red Cell Distribution Width 13.2, Platelet Count 192, Mean Platelet Volume 4.9L, Neutrophils (%) (Auto) , Lymphocytes (%) ( Auto) , Monocytes (%) (Auto) , Eosinophils (%) (Auto) , Basophils (%) (Auto) , Differential Total Cells Counted 100, Neutrophils % (Manual) 66, Lymphocytes % ( Manual) 26, Monocytes % (Manual) 8, Eosinophils % (Manual) 0, Basophils % ( Manual) 0, Band Neutrophils 0, Platelet Estimate Adequate, Platelet Morphology Normal, Microcytosis 1+, Sodium Level 141, Potassium Level 4.6, Chloride Level 112H, Carbon Dioxide Level 23, Anion Gap 6, Blood Urea Nitrogen 8, Creatinine 0.9, Estimat Glomerular Filtration Rate > 60, Glucose Level 113H, Calcium Level 8.2L Height (Feet): 5 Height (Inches): 10.00 Weight (Pounds): 140 General Appearance: lethargic EENT: normal ENT inspection Neck: normal alignment Cardiovascular: normal peripheral pulses, normal rate, regular rhythm Respiratory/Chest: chest wall non-tender, lungs clear, normal breath sounds Abdomen: normal bowel sounds, non tender, soft Extremities: normal inspection Edema: no edema noted Arm (L), no edema noted Arm (R), no edema noted Leg (L), no edema noted Leg (R), no edema noted Pedal (L), no edema noted Pedal (R), no edema noted Generalized Neurologic: motor weakness Skin: normal pigmentation, warm/dry Umesh Sepulveda DO Mar 27, 2019 10:33
--- NOTE | 2019-03-27 10:47 | Nephrology Progress Note ---
Assessment/Plan Status: stable, progressing Assessment/Plan: A/P 1) Acute Renal Failure- resolved. OK for Dc from renal point 2) Dehydration- resolved 3) Persistant Diarrhea- mgmt per GI HIV status and Hep B 4) Electrolyte Imbalance- replace Mg and phos prn urine + for amphetamine Subjective Date patient seen: Mar 27, 2019 Time patient seen: 10:46 ROS Limited/Unobtainable: No Allergies: Coded Allergies: No Known Allergies (Unverified , 03/23/19) Subjective Patient resting in no overt distress and feeling better Objective Last 24 Hour Vital Signs Date Time Temp Pulse Resp B/P (MAP) Pulse Ox O2 Delivery O2 Flow Rate FiO2 03/27/19 09:00 Room Air 03/27/19 08:00 98.2 54 21 92/53 (66) 100 03/27/19 07:43 70 03/27/19 04:00 59 03/27/19 04:00 98.4 59 17 107/60 (76) 99 03/27/19 00:00 57 03/27/19 00:00 98.2 57 20 97/58 (71) 94 03/26/19 21:00 Room Air 03/26/19 20:00 55 03/26/19 20:00 98.3 55 20 98/62 (74) 100 03/26/19 16:00 96.6 60 18 98/59 (72) 98 03/26/19 15:48 48 03/26/19 12:00 98.2 59 18 100/55 (70) 98 03/26/19 11:42 56 Intake and Output 03/26/19 03/27/19 19:00 07:00 Intake Total 1378.334 ml Output Total 800 ml 1100 ml Balance 578.334 ml -1100 ml Intake Oral 500 ml IV Total 878.334 ml Output Urine Total 800 ml 1100 ml # Voids 3 4 # Bowel Movements 2 Laboratory Tests 03/27/19 06:20: White Blood Count 3.2L, Red Blood Count 4.56L, Hemoglobin 11.2L, Hematocrit 34.0L, Mean Corpuscular Volume 75L, Mean Corpuscular Hemoglobin 24.5L, Mean Corpuscular Hemoglobin Concent 32.8, Red Cell Distribution Width 13.2, Platelet Count 192, Mean Platelet Volume 4.9L, Neutrophils (%) (Auto) , Lymphocytes (%) ( Auto) , Monocytes (%) (Auto) , Eosinophils (%) (Auto) , Basophils (%) (Auto) , Differential Total Cells Counted 100, Neutrophils % (Manual) 66, Lymphocytes % ( Manual) 26, Monocytes % (Manual) 8, Eosinophils % (Manual) 0, Basophils % ( Manual) 0, Band Neutrophils 0, Platelet Estimate Adequate, Platelet Morphology Normal, Microcytosis 1+, Sodium Level 141, Potassium Level 4.6, Chloride Level 112H, Carbon Dioxide Level 23, Anion Gap 6, Blood Urea Nitrogen 8, Creatinine 0.9, Estimat Glomerular Filtration Rate > 60, Glucose Level 113H, Calcium Level 8.2L Height (Feet): 5 Height (Inches): 10.00 Weight (Pounds): 140 General Appearance: no apparent distress, alert EENT: normal ENT inspection Neck: normal alignment, supple Cardiovascular: normal rate, regular rhythm Respiratory/Chest: lungs clear, normal breath sounds Abdomen: non tender, soft Edema: no edema noted Arm (L), no edema noted Arm (R), no edema noted Leg (L), no edema noted Leg (R), no edema noted Pedal (L), no edema noted Pedal (R), no edema noted Generalized Kalin Rey MD Mar 27, 2019 10:47
[2019-03-27 12:00] VITALS: BP 101/58
--- NOTE | 2019-03-27 12:13 | Infectious Diseases Prog Note ---
Assessment/Plan Assessment/Plan IMPRESSION: Diarrhea, likely infectious. resolving HIV, AIDS CD4=18 Acute renal failure, hypokalemia,corrected hepatitis B, amphetamine abuse. RECOMMENDATION: Discontinue with Cipro, Flagyl. Continue Bactrim & Zithromax prophylaxis Subjective ROS Limited/Unobtainable: No Respiratory: Reports: no symptoms Cardiovascular: Reports: no symptoms Gastrointestinal/Abdominal: Reports: no symptoms Genitourinary: Reports: no symptoms Allergies: Coded Allergies: No Known Allergies (Unverified , 03/23/19) Objective Vital Signs Last 24 Hour Vital Signs Date Time Temp Pulse Resp B/P (MAP) Pulse Ox O2 Delivery O2 Flow Rate FiO2 03/27/19 09:00 Room Air 03/27/19 08:00 98.2 54 21 92/53 (66) 100 03/27/19 07:43 70 03/27/19 04:00 59 03/27/19 04:00 98.4 59 17 107/60 (76) 99 03/27/19 00:00 57 03/27/19 00:00 98.2 57 20 97/58 (71) 94 03/26/19 21:00 Room Air 03/26/19 20:00 55 03/26/19 20:00 98.3 55 20 98/62 (74) 100 03/26/19 16:00 96.6 60 18 98/59 (72) 98 03/26/19 15:48 48 Height (Feet): 5 Height (Inches): 10.00 Weight (Pounds): 140 General Appearance: no acute distress HEENT: mucous membranes moist Respiratory/Chest: lungs clear Cardiovascular: normal rate Abdomen: soft, non tender Extremities: no edema Laboratory Tests Test 03/27/19 06:20 White Blood Count 3.2 K/UL (4.8-10.8) L Red Blood Count 4.56 M/UL (4.70-6.10) L Hemoglobin 11.2 G/DL (14.2-18.0) L Hematocrit 34.0 % (42.0-52.0) L Mean Corpuscular Volume 75 FL (80-99) L Mean Corpuscular Hemoglobin 24.5 PG (27.0-31.0) L Mean Corpuscular Hemoglobin Concent 32.8 G/DL (32.0-36.0) Red Cell Distribution Width 13.2 % (11.6-14.8) Platelet Count 192 K/UL (150-450) Mean Platelet Volume 4.9 FL (6.5-10.1) L Neutrophils (%) (Auto) % (45.0-75.0) Lymphocytes (%) (Auto) % (20.0-45.0) Monocytes (%) (Auto) % (1.0-10.0) Eosinophils (%) (Auto) % (0.0-3.0) Basophils (%) (Auto) % (0.0-2.0) Differential Total Cells Counted 100 Neutrophils % (Manual) 66 % (45-75) Lymphocytes % (Manual) 26 % (20-45) Monocytes % (Manual) 8 % (1-10) Eosinophils % (Manual) 0 % (0-3) Basophils % (Manual) 0 % (0-2) Band Neutrophils 0 % (0-8) Platelet Estimate Adequate Platelet Morphology Normal Microcytosis 1+ Sodium Level 141 MMOL/L (136-145) Potassium Level 4.6 MMOL/L (3.5-5.1) Chloride Level 112 MMOL/L (98-107) H Carbon Dioxide Level 23 MMOL/L (21-32) Anion Gap 6 mmol/L (5-15) Blood Urea Nitrogen 8 mg/dL (7-18) Creatinine 0.9 MG/DL (0.55-1.30) Estimat Glomerular Filtration Rate > 60 mL/min (>60) Glucose Level 113 MG/DL (74-106) H Calcium Level 8.2 MG/DL (8.5-10.1) L Current Medications Medications (Trade) Dose Ordered Sig/Bessie Route PRN Reason Start Time Stop Time Status Last Admin Dose Admin Acetaminophen (Tylenol) 500 mg Q4H PRN ORAL Mild Pain/Temp > 100.5 03/23/19 07:00 04/22/19 06:59 03/23/19 16:03 Azithromycin (Zithromax) 1,200 mg ONCE A WEEK ORAL 03/25/19 14:00 04/01/19 13:59 03/25/19 14:36 Ciprofloxacin (Cipro 250mg tab) 250 mg EVERY 12 HOURS ORAL 03/23/19 21:00 03/30/19 20:59 03/27/19 09:02 Dextrose/ Electrolytes 1,000 ml @ 50 mls/hr Q20H IV 03/25/19 08:00 04/23/19 07:59 03/27/19 04:24 Loperamide HCl (Imodium) 2 mg Q4H PRN ORAL Diarrhea 03/24/19 12:45 04/23/19 12:44 Metronidazole (Flagyl) 500 mg Q8HR ORAL 03/23/19 14:00 03/30/19 13:59 03/27/19 05:44 Pantoprazole (Protonix) 40 mg EVERY 12 HOURS ORAL 03/23/19 21:00 04/22/19 20:59 03/27/19 09:01 Potassium Chloride (K-Dur) 40 meq BID ORAL 03/25/19 18:00 04/23/19 08:59 03/27/19 09:02 Spironolactone (Aldactone) 25 mg DAILY ORAL 03/24/19 09:00 04/23/19 08:59 Trimethoprim/ Sulfamethoxazole (Bactrim Single Strength) 1 tab DAILY ORAL 03/25/19 14:00 04/01/19 13:59 03/27/19 09:01 Sarwat Yen MD Mar 27, 2019 12:13
[2019-03-27 16:00] VITALS: BP 101/61
--- NOTE | 2019-03-27 19:11 | Cardiac Electrophysiology PN ---
Assessment/Plan Assessment/Plan 1. Bradycardia with heart rate dropping to 40s. Better off midodrine. Echocardiogram EF 65% 2. Diarrhea, likely infectious. Further evaluation by Dr. Yen. 3. HIV and AIDS. CD4 count is only 18. 4. Hypokalemia. 5. Hepatitis B. 6. Amphetamine abuse. JAVIER RN Subjective Subjective Alert in NAD. No further bradycardia off Midodrine Objective Last 24 Hour Vital Signs Date Time Temp Pulse Resp B/P (MAP) Pulse Ox O2 Delivery O2 Flow Rate FiO2 03/27/19 16:00 98.0 54 20 101/61 (74) 100 03/27/19 15:20 63 03/27/19 12:00 98.0 57 21 101/58 (72) 100 03/27/19 11:43 67 03/27/19 09:00 Room Air 03/27/19 08:00 98.2 54 21 92/53 (66) 100 03/27/19 07:43 70 03/27/19 04:00 59 03/27/19 04:00 98.4 59 17 107/60 (76) 99 03/27/19 00:00 57 03/27/19 00:00 98.2 57 20 97/58 (71) 94 03/26/19 21:00 Room Air 03/26/19 20:00 55 03/26/19 20:00 98.3 55 20 98/62 (74) 100 Intake and Output 03/26/19 03/27/19 18:59 06:59 Intake Total 1378.334 ml Output Total 800 ml 1100 ml Balance 578.334 ml -1100 ml Intake Oral 500 ml IV Total 878.334 ml Output Urine Total 800 ml 1100 ml # Voids 3 4 # Bowel Movements 2 Laboratory Tests Test 03/27/19 06:20 White Blood Count 3.2 K/UL (4.8-10.8) L Red Blood Count 4.56 M/UL (4.70-6.10) L Hemoglobin 11.2 G/DL (14.2-18.0) L Hematocrit 34.0 % (42.0-52.0) L Mean Corpuscular Volume 75 FL (80-99) L Mean Corpuscular Hemoglobin 24.5 PG (27.0-31.0) L Mean Corpuscular Hemoglobin Concent 32.8 G/DL (32.0-36.0) Red Cell Distribution Width 13.2 % (11.6-14.8) Platelet Count 192 K/UL (150-450) Mean Platelet Volume 4.9 FL (6.5-10.1) L Neutrophils (%) (Auto) % (45.0-75.0) Lymphocytes (%) (Auto) % (20.0-45.0) Monocytes (%) (Auto) % (1.0-10.0) Eosinophils (%) (Auto) % (0.0-3.0) Basophils (%) (Auto) % (0.0-2.0) Differential Total Cells Counted 100 Neutrophils % (Manual) 66 % (45-75) Lymphocytes % (Manual) 26 % (20-45) Monocytes % (Manual) 8 % (1-10) Eosinophils % (Manual) 0 % (0-3) Basophils % (Manual) 0 % (0-2) Band Neutrophils 0 % (0-8) Platelet Estimate Adequate Platelet Morphology Normal Microcytosis 1+ Sodium Level 141 MMOL/L (136-145) Potassium Level 4.6 MMOL/L (3.5-5.1) Chloride Level 112 MMOL/L (98-107) H Carbon Dioxide Level 23 MMOL/L (21-32) Anion Gap 6 mmol/L (5-15) Blood Urea Nitrogen 8 mg/dL (7-18) Creatinine 0.9 MG/DL (0.55-1.30) Estimat Glomerular Filtration Rate > 60 mL/min (>60) Glucose Level 113 MG/DL (74-106) H Calcium Level 8.2 MG/DL (8.5-10.1) L Objective HEAD AND NECK: No JVD. LUNGS: Coarse rhonchi. CARDIOVASCULAR: Regular S1 and S2 with no gallop or murmur. ABDOMEN: Soft. EXTREMITIES: No pitting edema. Eligio Lan MD Mar 27, 2019 19:11
--- NOTE | 2019-03-27 19:11 | NUR ---
HAND-OFF: Report given to Elias Adair.
--- NOTE | 2019-03-27 19:12 | NUR ---
HAND-OFF: Report given to PONCHO Adair.
--- NOTE | 2019-03-27 19:13 | NUR ---
NURSE NOTES: Received report from PONCHO Sharma. Patient in bed AO X4. Patient denies pain at this time. Able to walk to the bathroom unassisted. IV line intact and patent. Safety precaution in place; side rails X 2 up, call light within reach, bed in lowest position, brakes and alarm on at all times. Will continue plan of care and monitor for any changes noted.
[2019-03-28] VITALS: BP 99/61
[2019-03-28] MEDS: Acetaminophen 500mg (ES) tab ORAL PRN (00:01)
[2019-03-28 04:00] VITALS: BP 109/61
--- NOTE | 2019-03-28 07:23 | NUR ---
HAND-OFF: Report given to PONCHO Sharma. Endorsed plan of care.
[2019-03-28 08:00] VITALS: BP 101/60
[2019-03-28 08:02] LABS: BASOPHILS % (AUTO) 1.5 % (0.0-2.0); EOSINOPHILS % (AUTO) 2.8 % (0.0-3.0); HEMATOCRIT 36.6 % (42.0-52.0); HEMOGLOBIN 11.8 G/DL (14.2-18.0); MEAN CORPUSCULAR VOLUME 76 FL (80-99); MONOCYTES % (AUTO) 10.3 % (1.0-10.0); NEUTROPHILS % (AUTO) 57.5 % (45.0-75.0); PLATELET COUNT 212 K/UL (150-450); RED BLOOD COUNT 4.78 M/UL (4.70-6.10); RED CELL DISTRIBUTION WIDTH 13.8 % (11.6-14.8); WHITE BLOOD COUNT 3.9 K/UL (4.8-10.8)
--- NOTE | 2019-03-28 08:05 | General Progress Note ---
Assessment/Plan Status: stable, progressing Assessment/Plan: HIV/AIDS>>> CD4 count 18 diarrhea hep B rug abuse Urine toxicity positive for amphetamines cdiff negative stool culture negative US reviewed regular diet Imodium prn, Lomotil for persistent diarrhea Electrolyte correction H2B zofran prn follow labs needs out patient fu for hep B treatment fu ID recs Subjective ROS Limited/Unobtainable: Yes Allergies: Coded Allergies: No Known Allergies (Unverified , 03/23/19) Objective Last 24 Hour Vital Signs Date Time Temp Pulse Resp B/P (MAP) Pulse Ox O2 Delivery O2 Flow Rate FiO2 03/28/19 04:00 98.3 64 17 109/61 (77) 95 03/28/19 04:00 64 03/28/19 00:00 78 03/28/19 00:00 98.1 78 17 99/61 (74) 97 03/27/19 21:00 Room Air 03/27/19 20:00 62 03/27/19 20:00 62 03/27/19 16:00 98.0 54 20 101/61 (74) 100 03/27/19 15:20 63 03/27/19 12:00 98.0 57 21 101/58 (72) 100 03/27/19 11:43 67 03/27/19 09:00 Room Air Intake and Output 03/27/19 03/28/19 19:00 07:00 Intake Total 500 ml Output Total 1000 ml Balance -500 ml Intake Oral 500 ml Output Urine Total 1000 ml # Voids 4 4 # Bowel Movements 4 Laboratory Tests 03/28/19 05:43: White Blood Count [Pending], Red Blood Count [Pending], Hemoglobin [Pending], Hematocrit [Pending], Mean Corpuscular Volume [Pending], Mean Corpuscular Hemoglobin [Pending], Mean Corpuscular Hemoglobin Concent [Pending], Red Cell Distribution Width [Pending], Platelet Count [Pending], Mean Platelet Volume [ Pending], Neutrophils (%) (Auto) [Pending], Lymphocytes (%) (Auto) [Pending], Monocytes (%) (Auto) [Pending], Eosinophils (%) (Auto) [Pending], Basophils (%) (Auto) [Pending], Sodium Level [Pending], Potassium Level [Pending], Chloride Level [Pending], Carbon Dioxide Level [Pending], Blood Urea Nitrogen [Pending], Creatinine [Pending], Estimat Glomerular Filtration Rate [Pending], Glucose Level [Pending], Calcium Level [Pending], Phosphorus Level [Pending], Magnesium Level [Pending], Total Bilirubin [Pending], Direct Bilirubin [Pending], Aspartate Amino Transf (AST/SGOT) [Pending], Alanine Aminotransferase (ALT/SGPT ) [Pending], Alkaline Phosphatase [Pending], Total Protein [Pending], Albumin [ Pending] Height (Feet): 5 Height (Inches): 10.00 Weight (Pounds): 140 General Appearance: alert EENT: normal ENT inspection Neck: supple Cardiovascular: normal rate Respiratory/Chest: lungs clear Abdomen: normal bowel sounds, non tender, soft Extremities: non-tender Allen Fry MD Mar 28, 2019 08:05
[2019-03-28] MEDS: Bactrim SS Tab ORAL SCH (08:40)
[2019-03-28] MEDS: Spironolactone 25mg tab ORAL SCH (08:41)
[2019-03-28 08:55] LABS: ANION GAP 6 mmol/L (5-15); BLOOD UREA NITROGEN 5 mg/dL (7-18); CALCIUM 8.5 MG/DL (8.5-10.1); CARBON DIOXIDE 23 MMOL/L (21-32); CHLORIDE 111 MMOL/L (98-107); POTASSIUM 5.2 MMOL/L (3.5-5.1); SODIUM 140 MMOL/L (136-145)
--- NOTE | 2019-03-28 08:56 | Cardiology Report ---
APPROVED REPORT EXAM: Two-dimensional and M-mode echocardiogram with Doppler and color Doppler. INDICATION LV FUNCTION M-Mode DIMENSIONS IVSd0.8 (0.7-1.1cm)Left Atrium (MM)2.5 (1.6-4.0cm) LVDd2.9 (3.5-5.6cm)Aortic Root3.6 (2.0-3.7cm) PWd1.0 (0.7-1.1cm)Aortic Cusp Exc.1.6 (1.5-2.0cm) IVSs1.3 cm LVDs1.5 (2.5-4.0cm) PWs1.0 cm Normal left ventricular chamber size, systolic function and wall motion . Left ventricular ejection fraction estimated to be 65% No pericardial effusion. No evidence of ventriuclar hypertrophy . All other cardiac chamber sizes are within normal limits. Aortic valve calcification with normal cusp excursion . Mildly thickened mitral valve leaflets with normal excursion. Mild mitral annulus and aortic root calcification. IVC at normal size with physiologic collapse. A color flow and spectral Doppler study was performed and revealed: No aortic insufficiency . Mitral diastolic velocities suggest reduced left ventricular relaxation c/w mild LV diastolic dysfunction (Grade I ) Trace mitral regurgitation. Trace tricuspid regurgitation. Tricuspid systolic velocities suggests peak right ventricular systolic pressure of 9mmHg.
--- NOTE | 2019-03-28 09:00 | NUR ---
CASE MANAGEMENT:REVIEW 03/26/19 SI: INFECTIOUS DIARRHEA ACUTE RENAL FAILURE. HIV 97.0 54 19 95/58 99% ON RA IS: K-DUR PO BID AZITHROMAX PO QWEEK BACTRIM PO QD CIPRO PO Q12 FLAGYL PO Q8HRS IVF@50/HR ALDACTONE PO QD : TELEMETRY STATUS 03/27/19 SI: INFECTIOUS DIARRHEA ACUTE RENAL FAILURE. HIV 98.2 57 20 97/58 94% ON RA WBC_3.2 H/H-11.2/34.0 CA-8.2 IS: K-DUR PO BID AZITHROMAX PO QWEEK BACTRIM PO QD CIPRO PO Q12 FLAGYL PO Q8HRS IVF@50/HR ALDACTONE PO QD : TELEMETRY STATUS 03/28/19 SI: INFECTIOUS DIARRHEA ACUTE RENAL FAILURE. HIV 98.3 64 17 109/61 95% ON RA WBC-3.9 H/H-11.8/36.6 K+5.2 IS: K-DUR PO BID AZITHROMAX PO QWEEK BACTRIM PO QD IVF@50/HR ALDACTONE PO QD : TELEMETRY STATUS DCP: HOME
[2019-03-28 09:14] LABS: ALANINE AMINOTRANSFERASE 50 U/L (12-78); ALBUMIN 2.2 G/DL (3.4-5.0); ALKALINE PHOSPHATASE 98 U/L (46-116); ASPARTATE AMINO TRANSFERASE 48 U/L (15-37); BILIRUBIN,DIRECT < 0.1 MG/DL (0.0-0.3); BILIRUBIN,TOTAL 0.2 MG/DL (0.2-1.0)
[2019-03-28 09:21] LABS: PHOSPHORUS 3.6 MG/DL (2.5-4.9)
--- NOTE | 2019-03-28 11:03 | Nephrology Progress Note ---
Assessment/Plan Problem List: (1) ARF (acute renal failure) (2) Hypokalemia Assessment: resolved (3) Dehydration (4) Diarrhea Assessment: much improve (5) Electrolyte imbalance (6) Amphetamine abuse (7) AIDS (acquired immune deficiency syndrome) Assessment Acute Renal Failure- Cr lowering Dehydration Persistant Diarrhea HIV status and Hep B Electrolyte Imbalance- Low K urine + for amphetamins Plan stop IV Aim to correct k and Phos and Mag Monitor renal parameters Avoid Nephrotoxics Per Orders med surg Subjective ROS Limited/Unobtainable: No Constitutional: Reports: malaise Objective Objective Last 24 Hour Vital Signs Date Time Temp Pulse Resp B/P (MAP) Pulse Ox O2 Delivery O2 Flow Rate FiO2 03/28/19 09:00 Room Air 03/28/19 08:00 97.7 52 18 101/60 (74) 95 03/28/19 07:40 71 03/28/19 04:00 98.3 64 17 109/61 (77) 95 03/28/19 04:00 64 03/28/19 00:00 78 03/28/19 00:00 98.1 78 17 99/61 (74) 97 03/27/19 21:00 Room Air 03/27/19 20:00 62 03/27/19 20:00 62 03/27/19 16:00 98.0 54 20 101/61 (74) 100 03/27/19 15:20 63 03/27/19 12:00 98.0 57 21 101/58 (72) 100 03/27/19 11:43 67 Intake and Output 03/27/19 03/28/19 19:00 07:00 Intake Total 500 ml Output Total 1000 ml Balance -500 ml Intake Oral 500 ml Output Urine Total 1000 ml # Voids 4 4 # Bowel Movements 4 Laboratory Tests 03/28/19 05:43: White Blood Count 3.9L, Red Blood Count 4.78, Hemoglobin 11.8L, Hematocrit 36.6L , Mean Corpuscular Volume 76L, Mean Corpuscular Hemoglobin 24.7L, Mean Corpuscular Hemoglobin Concent 32.3, Red Cell Distribution Width 13.8, Platelet Count 212, Mean Platelet Volume 5.0L, Neutrophils (%) (Auto) 57.5, Lymphocytes ( %) (Auto) 28.0, Monocytes (%) (Auto) 10.3H, Eosinophils (%) (Auto) 2.8, Basophils (%) (Auto) 1.5, Sodium Level 140, Potassium Level 5.2H, Chloride Level 111H, Carbon Dioxide Level 23, Anion Gap 6, Blood Urea Nitrogen 5L, Creatinine 1.0, Estimat Glomerular Filtration Rate > 60, Glucose Level 92, Calcium Level 8.5, Phosphorus Level 3.6, Magnesium Level 1.5L, Total Bilirubin 0.2, Direct Bilirubin < 0.1, Aspartate Amino Transf (AST/SGOT) 48H, Alanine Aminotransferase (ALT/SGPT) 50, Alkaline Phosphatase 98, Total Protein 7.5, Albumin 2.2L Height (Feet): 5 Height (Inches): 10.00 Weight (Pounds): 140 General Appearance: no apparent distress Objective no change Rob Millan MD Mar 28, 2019 11:03
--- NOTE | 2019-03-28 11:39 | Cardiac Electrophysiology PN ---
Assessment/Plan Assessment/Plan 1. Bradycardia with heart rate dropping to 40s. Resolved off midodrine. EF 65% 2. Diarrhea, likely infectious. Further evaluation by Dr. Yen. 3. HIV and AIDS. CD4 count is only 18. 4. Hypokalemia. 5. Hepatitis B. 6. Amphetamine abuse. JAVIER RN Subjective Subjective Alert in NAD. Remained in NSR Objective Last 24 Hour Vital Signs Date Time Temp Pulse Resp B/P (MAP) Pulse Ox O2 Delivery O2 Flow Rate FiO2 03/28/19 09:00 Room Air 03/28/19 08:00 97.7 52 18 101/60 (74) 95 03/28/19 07:40 71 03/28/19 04:00 98.3 64 17 109/61 (77) 95 03/28/19 04:00 64 03/28/19 00:00 78 03/28/19 00:00 98.1 78 17 99/61 (74) 97 03/27/19 21:00 Room Air 03/27/19 20:00 62 03/27/19 20:00 62 03/27/19 16:00 98.0 54 20 101/61 (74) 100 03/27/19 15:20 63 03/27/19 12:00 98.0 57 21 101/58 (72) 100 03/27/19 11:43 67 Intake and Output 03/27/19 03/28/19 19:00 07:00 Intake Total 500 ml Output Total 1000 ml Balance -500 ml Intake Oral 500 ml Output Urine Total 1000 ml # Voids 4 4 # Bowel Movements 4 Laboratory Tests Test 03/28/19 05:43 03/28/19 10:30 White Blood Count 3.9 K/UL (4.8-10.8) L Red Blood Count 4.78 M/UL (4.70-6.10) Hemoglobin 11.8 G/DL (14.2-18.0) L Hematocrit 36.6 % (42.0-52.0) L Mean Corpuscular Volume 76 FL (80-99) L Mean Corpuscular Hemoglobin 24.7 PG (27.0-31.0) L Mean Corpuscular Hemoglobin Concent 32.3 G/DL (32.0-36.0) Red Cell Distribution Width 13.8 % (11.6-14.8) Platelet Count 212 K/UL (150-450) Mean Platelet Volume 5.0 FL (6.5-10.1) L Neutrophils (%) (Auto) 57.5 % (45.0-75.0) Lymphocytes (%) (Auto) 28.0 % (20.0-45.0) Monocytes (%) (Auto) 10.3 % (1.0-10.0) H Eosinophils (%) (Auto) 2.8 % (0.0-3.0) Basophils (%) (Auto) 1.5 % (0.0-2.0) Sodium Level 140 MMOL/L (136-145) Potassium Level 5.2 MMOL/L (3.5-5.1) H Chloride Level 111 MMOL/L (98-107) H Carbon Dioxide Level 23 MMOL/L (21-32) Anion Gap 6 mmol/L (5-15) Blood Urea Nitrogen 5 mg/dL (7-18) L Creatinine 1.0 MG/DL (0.55-1.30) Estimat Glomerular Filtration Rate > 60 mL/min (>60) Glucose Level 92 MG/DL (74-106) Calcium Level 8.5 MG/DL (8.5-10.1) Phosphorus Level 3.6 MG/DL (2.5-4.9) Magnesium Level 1.5 MG/DL (1.8-2.4) L Total Bilirubin 0.2 MG/DL (0.2-1.0) Direct Bilirubin < 0.1 MG/DL (0.0-0.3) Aspartate Amino Transf (AST/SGOT) 48 U/L (15-37) H Alanine Aminotransferase (ALT/SGPT) 50 U/L (12-78) Alkaline Phosphatase 98 U/L (46-116) Total Protein 7.5 G/DL (6.4-8.2) Albumin 2.2 G/DL (3.4-5.0) L Hepatitis B DNA (IU/mL) Pending Hepatitis Be Antibody Pending Hepatitis Be Antigen Pending Objective HEAD AND NECK: No JVD. LUNGS: Coarse rhonchi. CARDIOVASCULAR: Regular S1 and S2 with no gallop or murmur. ABDOMEN: Soft. EXTREMITIES: No pitting edema. Eligio Lan MD Mar 28, 2019 11:39
[2019-03-28 12:00] VITALS: BP 109/63
--- NOTE | 2019-03-28 12:36 | Infectious Diseases Prog Note ---
Assessment/Plan Assessment/Plan IMPRESSION: Diarrhea, likely infectious. resolving HIV, AIDS CD4=18 Acute renal failure, hypokalemia,corrected hepatitis B, amphetamine abuseOral candidiasis RECOMMENDATION: Add Fluconazole Continue Bactrim & Zithromax prophylaxis Agree with discharge Subjective ROS Limited/Unobtainable: No Constitutional: Reports: no symptoms Gastrointestinal/Abdominal: Reports: diarrhea Allergies: Coded Allergies: No Known Allergies (Unverified , 03/23/19) Objective Vital Signs Last 24 Hour Vital Signs Date Time Temp Pulse Resp B/P (MAP) Pulse Ox O2 Delivery O2 Flow Rate FiO2 03/28/19 09:00 Room Air 03/28/19 08:00 97.7 52 18 101/60 (74) 95 03/28/19 07:40 71 03/28/19 04:00 98.3 64 17 109/61 (77) 95 03/28/19 04:00 64 03/28/19 00:00 78 03/28/19 00:00 98.1 78 17 99/61 (74) 97 03/27/19 21:00 Room Air 03/27/19 20:00 62 03/27/19 20:00 62 03/27/19 16:00 98.0 54 20 101/61 (74) 100 03/27/19 15:20 63 Height (Feet): 5 Height (Inches): 10.00 Weight (Pounds): 140 General Appearance: no acute distress HEENT: mucous membranes moist, thrush Respiratory/Chest: lungs clear Cardiovascular: normal rate Abdomen: soft, non tender Extremities: no edema Neurologic/Psychiatric: alert, oriented x 3, responsive Laboratory Tests Test 03/28/19 05:43 03/28/19 10:30 White Blood Count 3.9 K/UL (4.8-10.8) L Red Blood Count 4.78 M/UL (4.70-6.10) Hemoglobin 11.8 G/DL (14.2-18.0) L Hematocrit 36.6 % (42.0-52.0) L Mean Corpuscular Volume 76 FL (80-99) L Mean Corpuscular Hemoglobin 24.7 PG (27.0-31.0) L Mean Corpuscular Hemoglobin Concent 32.3 G/DL (32.0-36.0) Red Cell Distribution Width 13.8 % (11.6-14.8) Platelet Count 212 K/UL (150-450) Mean Platelet Volume 5.0 FL (6.5-10.1) L Neutrophils (%) (Auto) 57.5 % (45.0-75.0) Lymphocytes (%) (Auto) 28.0 % (20.0-45.0) Monocytes (%) (Auto) 10.3 % (1.0-10.0) H Eosinophils (%) (Auto) 2.8 % (0.0-3.0) Basophils (%) (Auto) 1.5 % (0.0-2.0) Sodium Level 140 MMOL/L (136-145) Potassium Level 5.2 MMOL/L (3.5-5.1) H Chloride Level 111 MMOL/L (98-107) H Carbon Dioxide Level 23 MMOL/L (21-32) Anion Gap 6 mmol/L (5-15) Blood Urea Nitrogen 5 mg/dL (7-18) L Creatinine 1.0 MG/DL (0.55-1.30) Estimat Glomerular Filtration Rate > 60 mL/min (>60) Glucose Level 92 MG/DL (74-106) Calcium Level 8.5 MG/DL (8.5-10.1) Phosphorus Level 3.6 MG/DL (2.5-4.9) Magnesium Level 1.5 MG/DL (1.8-2.4) L Total Bilirubin 0.2 MG/DL (0.2-1.0) Direct Bilirubin < 0.1 MG/DL (0.0-0.3) Aspartate Amino Transf (AST/SGOT) 48 U/L (15-37) H Alanine Aminotransferase (ALT/SGPT) 50 U/L (12-78) Alkaline Phosphatase 98 U/L (46-116) Total Protein 7.5 G/DL (6.4-8.2) Albumin 2.2 G/DL (3.4-5.0) L Hepatitis B DNA (IU/mL) Pending Hepatitis Be Antibody Pending Hepatitis Be Antigen Pending Current Medications Medications (Trade) Dose Ordered Sig/Bessie Route PRN Reason Start Time Stop Time Status Last Admin Dose Admin Acetaminophen (Tylenol) 500 mg Q4H PRN ORAL Mild Pain/Temp > 100.5 03/23/19 07:00 04/22/19 06:59 03/28/19 00:01 Azithromycin (Zithromax) 1,200 mg ONCE A WEEK ORAL 03/25/19 14:00 04/01/19 13:59 03/25/19 14:36 Loperamide HCl (Imodium) 2 mg Q4H PRN ORAL Diarrhea 03/24/19 12:45 04/23/19 12:44 Magnesium Sulfate 100 ml @ 100 mls/hr Q1H IVPB 03/28/19 11:30 03/28/19 13:29 03/28/19 11:47 Pantoprazole (Protonix) 40 mg EVERY 12 HOURS ORAL 03/23/19 21:00 04/22/19 20:59 03/28/19 08:39 Spironolactone (Aldactone) 25 mg DAILY ORAL 03/24/19 09:00 04/23/19 08:59 Trimethoprim/ Sulfamethoxazole (Bactrim Single Strength) 1 tab DAILY ORAL 03/25/19 14:00 04/01/19 13:59 03/28/19 08:40 Sarwat Yen MD Mar 28, 2019 12:36
--- NOTE | 2019-03-28 15:03 | Hematology/Onc Progress Note ---
Assessment/Plan Assessment/Plan Assessment and Recs: # Leukopenia -- decreased wbc on admission, no historical studies to compare, likely due to hx chronic hepatitis B and hiv as well, contributors as well as splenomegaly++ and hepatomegaly++ --> trend as needed wbc 3.3-->2.7-->2.6-->3.9 --> ANC goal is >1500 --> abd us shows large spleen and hepatomegaly --> neupogen to be given on prn basis # Anemia due to chronic disease --> due to hep and hiv --> trend as needed 11-->10.6-->11.1-->11.4 --> hold off on epo or iron --> no hemolysis noted # Diarrhea cause of low k --> stool o&p neg --> abx as needed per id (flagyl)--> cipro/flagyl-->bactrim/azithro/flucon # ARF (acute renal failure) --> on ivf as needed --> per renal # Hypokalemia --> replete with K as needed # Balanitis --> uro recs prn # HIV --> on ppx has been started by id # Hepatitis B chronic Time of note does not correspond to time patient was seen Greatly appreciate consultation. Subjective Constitutional: Denies: no symptoms, chills, fever, malaise, weakness, other HEENT: Denies: no symptoms, eye pain, blurred vision, tearing, double vision, ear pain, ear discharge, nose pain, nose congestion, throat pain, throat swelling, mouth pain, mouth swelling, other Cardiovascular: Denies: no symptoms, chest pain, edema, irregular heart rate, lightheadedness, palpitations, syncope, other Respiratory: Denies: no symptoms, cough, shortness of breath, SOB with excertion, SOB at rest, sputum, wheezing, other Gastrointestinal/Abdominal: Denies: no symptoms, abdomen distended, abdominal pain, black stools, tarry stools, blood in stool, constipated, diarrhea, difficulty swallowing, nausea, poor appetite, poor fluid intake, rectal bleeding , vomiting, other Genitourinary: Denies: no symptoms, burning, discharge, frequency, flank pain, hematuria, incontinence, pain, urgency, other Neurologic/Psychiatric: Denies: no symptoms, anxiety, depressed, emotional problems, headache, numbness, paresthesia, pre-existing deficit, seizure, tingling, tremors, weakness, other Endocrine: Denies: no symptoms, excessive sweating, flushing, intolerance to cold, intolerance to heat, increased hunger, increased thirst, increased urine, unexplained weight gain, unexplained weight loss, other Hematologic/Lymphatic: Denies: no symptoms, anemia, easy bleeding, easy bruising, adenopathy, other Allergies: Coded Allergies: No Known Allergies (Unverified , 03/23/19) Subjective 03/24: on flagyl, lou rn and may have c.diff, labs have been reviewed 03/25: on abx, vs stable, no f/c, no distress, no pain, labs noted 03/26: awake, alert, no complaints, no f/c, no bleeding 03/28: no bleeding or chills, labs reviewed, stable wbc at this time Objective Objective Current Medications Medications (Trade) Dose Ordered Sig/Bessie Route PRN Reason Start Time Stop Time Status Last Admin Dose Admin Acetaminophen (Tylenol) 500 mg Q4H PRN ORAL Mild Pain/Temp > 100.5 03/23/19 07:00 04/22/19 06:59 03/28/19 00:01 Azithromycin (Zithromax) 1,200 mg ONCE A WEEK ORAL 03/25/19 14:00 04/01/19 13:59 03/25/19 14:36 Loperamide HCl (Imodium) 2 mg Q4H PRN ORAL Diarrhea 03/24/19 12:45 04/23/19 12:44 Pantoprazole (Protonix) 40 mg EVERY 12 HOURS ORAL 03/23/19 21:00 04/22/19 20:59 03/28/19 08:39 Spironolactone (Aldactone) 25 mg DAILY ORAL 03/24/19 09:00 04/23/19 08:59 Trimethoprim/ Sulfamethoxazole (Bactrim Single Strength) 1 tab DAILY ORAL 03/25/19 14:00 04/01/19 13:59 03/28/19 08:40 Last 24 Hour Vital Signs Date Time Temp Pulse Resp B/P (MAP) Pulse Ox O2 Delivery O2 Flow Rate FiO2 03/28/19 12:00 98.5 67 18 109/63 (78) 99 03/28/19 11:43 66 03/28/19 09:00 Room Air 03/28/19 08:00 97.7 52 18 101/60 (74) 95 03/28/19 07:40 71 03/28/19 04:00 98.3 64 17 109/61 (77) 95 03/28/19 04:00 64 03/28/19 00:00 78 03/28/19 00:00 98.1 78 17 99/61 (74) 97 03/27/19 21:00 Room Air 03/27/19 20:00 62 03/27/19 20:00 62 03/27/19 16:00 98.0 54 20 101/61 (74) 100 03/27/19 15:20 63 03/27/19 12:00 98.0 57 21 101/58 (72) 100 03/27/19 11:43 67 03/27/19 09:00 Room Air 03/27/19 08:00 98.2 54 21 92/53 (66) 100 03/27/19 07:43 70 03/27/19 04:00 59 03/27/19 04:00 98.4 59 17 107/60 (76) 99 03/27/19 00:00 57 03/27/19 00:00 98.2 57 20 97/58 (71) 94 03/26/19 21:00 Room Air 03/26/19 20:00 55 03/26/19 20:00 98.3 55 20 98/62 (74) 100 03/26/19 16:00 96.6 60 18 98/59 (72) 98 03/26/19 15:48 48 Intake and Output 03/27/19 03/28/19 19:00 07:00 Intake Total 500 ml Output Total 1000 ml Balance -500 ml Intake Oral 500 ml Output Urine Total 1000 ml # Voids 4 4 # Bowel Movements 4 Labs Test 03/26/19 06:35 03/27/19 06:20 03/28/19 05:43 03/28/19 10:30 White Blood Count 3.3 K/UL (4.8-10.8) 3.2 K/UL (4.8-10.8) 3.9 K/UL (4.8-10.8) Red Blood Count 4.65 M/UL (4.70-6.10) 4.56 M/UL (4.70-6.10) 4.78 M/UL (4.70-6.10) Hemoglobin 11.4 G/DL (14.2-18.0) 11.2 G/DL (14.2-18.0) 11.8 G/DL (14.2-18.0) Hematocrit 35.1 % (42.0-52.0) 34.0 % (42.0-52.0) 36.6 % (42.0-52.0) Mean Corpuscular Volume 75 FL (80-99) 75 FL (80-99) 76 FL (80-99) Mean Corpuscular Hemoglobin 24.6 PG (27.0-31.0) 24.5 PG (27.0-31.0) 24.7 PG (27.0-31.0) Mean Corpuscular Hemoglobin Concent 32.6 G/DL (32.0-36.0) 32.8 G/DL (32.0-36.0) 32.3 G/DL (32.0-36.0) Red Cell Distribution Width 13.5 % (11.6-14.8) 13.2 % (11.6-14.8) 13.8 % (11.6-14.8) Platelet Count 216 K/UL (150-450) 192 K/UL (150-450) 212 K/UL (150-450) Mean Platelet Volume 4.6 FL (6.5-10.1) 4.9 FL (6.5-10.1) 5.0 FL (6.5-10.1) Neutrophils (%) (Auto) % (45.0-75.0) % (45.0-75.0) 57.5 % (45.0-75.0) Lymphocytes (%) (Auto) % (20.0-45.0) % (20.0-45.0) 28.0 % (20.0-45.0) Monocytes (%) (Auto) % (1.0-10.0) % (1.0-10.0) 10.3 % (1.0-10.0) Eosinophils (%) (Auto) % (0.0-3.0) % (0.0-3.0) 2.8 % (0.0-3.0) Basophils (%) (Auto) % (0.0-2.0) % (0.0-2.0) 1.5 % (0.0-2.0) Differential Total Cells Counted 100 100 Neutrophils % (Manual) 52 % (45-75) 66 % (45-75) Lymphocytes % (Manual) 33 % (20-45) 26 % (20-45) Monocytes % (Manual) 12 % (1-10) 8 % (1-10) Eosinophils % (Manual) 2 % (0-3) 0 % (0-3) Basophils % (Manual) 0 % (0-2) 0 % (0-2) Myelocytes % 1 % (0-0) Band Neutrophils 0 % (0-8) 0 % (0-8) Platelet Estimate Adequate Adequate Platelet Morphology Normal Normal Microcytosis 2+ 1+ Sodium Level 143 MMOL/L (136-145) 141 MMOL/L (136-145) 140 MMOL/L (136-145) Potassium Level 4.6 MMOL/L (3.5-5.1) 4.6 MMOL/L (3.5-5.1) 5.2 MMOL/L (3.5-5.1) Chloride Level 113 MMOL/L (98-107) 112 MMOL/L (98-107) 111 MMOL/L (98-107) Carbon Dioxide Level 21 MMOL/L (21-32) 23 MMOL/L (21-32) 23 MMOL/L (21-32) Anion Gap 9 mmol/L (5-15) 6 mmol/L (5-15) 6 mmol/L (5-15) Blood Urea Nitrogen 10 mg/dL (7-18) 8 mg/dL (7-18) 5 mg/dL (7-18) Creatinine 1.1 MG/DL (0.55-1.30) 0.9 MG/DL (0.55-1.30) 1.0 MG/DL (0.55-1.30) Estimat Glomerular Filtration Rate > 60 mL/min (>60) > 60 mL/min (>60) > 60 mL/min (>60) Glucose Level 84 MG/DL (74-106) 113 MG/DL (74-106) 92 MG/DL (74-106) Calcium Level 8.1 MG/DL (8.5-10.1) 8.2 MG/DL (8.5-10.1) 8.5 MG/DL (8.5-10.1) Phosphorus Level 2.0 MG/DL (2.5-4.9) 3.6 MG/DL (2.5-4.9) Magnesium Level 1.7 MG/DL (1.8-2.4) 1.5 MG/DL (1.8-2.4) Total Bilirubin 0.2 MG/DL (0.2-1.0) Direct Bilirubin < 0.1 MG/DL (0.0-0.3) Aspartate Amino Transf (AST/SGOT) 48 U/L (15-37) Alanine Aminotransferase (ALT/SGPT) 50 U/L (12-78) Alkaline Phosphatase 98 U/L (46-116) Total Protein 7.5 G/DL (6.4-8.2) Albumin 2.2 G/DL (3.4-5.0) Height (Feet): 5 Height (Inches): 10.00 Weight (Pounds): 140 Objective Physical Exam Vitals: reviewed Gen: not in acute distress Pulm: CTAB CV: rrr, no mgr GI: nontender, nondistended MSKL normal rom Psychiatric: mood/affect normal Elian Kessler MD Mar 28, 2019 15:02
[2019-03-28] MEDS ORDERED: DIFLUCAN200 MG ORAL (15:15)
[2019-03-28] MEDS ORDERED: BACTRIM 400-801 EACH ORAL (15:16)
[2019-03-28] MEDS ORDERED: ZITHROMAX250 MG ORAL (15:17)
[2019-03-28 16:00] VITALS: BP 109/63
--- NOTE | 2019-03-28 16:36 | NUR ---
Home Discharge: Patient is being discharged from medical care. Awake, alert and oriented x 4. Patient signed patient belonging form. Patient signed discharge instructions, copy of prescriptions paper, and taxi voucher. All medical devices such as IV, heart monitor, and ID band were removed. Patient ambulated out with all personal belongings with steady gait to taxi.
--- NOTE | 2019-03-29 13:07 | Discharge Summary ---
Discharge Summary Discharge Summary _ DATE OF ADMISSION: 11/20/2018 DATE OF DISCHARGE: 03/28/2019 DISCHARGED BY: Dr Sanchez REASON FOR ADMISSION: 44 years old male with past medical history of chronic hepatitis and HIV (not on any HIV medication, not aware of CD4 count or viral load ), presented with chief complaint of diarrhea for 4 days. Patient reported profuse, initially watery diarrhea and then bloody. He also reported abdominal cramps. No nausea or vomiting. He reported fever 102-day prior to presentation to ED . No recent antibiotic use. No recent traveling. No sick contacts. Upon evaluation patient was afebrile . Blood pressure was on the low side 96/62 , heart rate 95. Laboratory work-up revealed no leukocytosis , stable hemoglobin and hematocrit. Potassium 2.1. BUN 28, creatinine 2.3. AST 81, ALT 91. Albumin 2.8. Lactic acid 1.9. Urinalysis revealed no evidence of UTI. Urine toxicology screen was positive for amphetamine. Physical examination revealed balanitis. In emergency department patient received IV hydration, started on empiric antibiotic and admitted for further management. CONSULTANTS: crystal slicer Dr. Leiva ID specialist Dr. Alfaro GI specialist Dr. Fry master technician Dr. Millan armor officer/oncologist Dr. Kessler [facility] COURSE: Patient admitted to telemetry floor. Patient was on IV hydration. Potassium was replaced. Patient was continued on empiric antibiotic as per ID specialist recommendation/ Cipro and Flagyl. Abdominal ultrasound demonstrated no evidence of gallstones or dilated bile ducts. Hepatomegaly and splenomegaly noted. Symptomatic treatment provided . Lomotil was given for persistent diarrhea and Imodium provided on as-needed basis as well. Patient was on IV hydration . Oral hydration was encouraged. GI prophylaxis with H2 conor provided. Antiemetic provided as needed. Per GI specialist , patient will benefit from colonoscopy to rule out IBS , if diarrhea persistent. T-cell subsets count revealed absolute CD4 count of 18, placing him in AIDS category. Patient started on Bactrim and Zithromax for prophylaxis. Fluconazole was added for treatment of balanitis. Patient with history of chronic hepatitis B. Per ID specialist , diarrhea was likely infectious and was resolving. Patient completed empiric treatment with Cipro and Flagyl. Stool culture negative,. Stool for C difficile negative. Churn Driller followed. Renal parameters and electrolytes were closely monitored. Electrolytes corrected as needed. Nephrotoxic's were avoided. Patient was dehydrated due to persistent diarrhea. Potassium , phosphorus and magnesium were corrected. Creatinine from 2.3 down to 1.0 , BUN from 28 down to 5. Kitchen Help Handyman followed for bradycardia. Echocardiogram revealed preserved ejection fraction of 65% with no evidence of pericardial effusion. No evidence of ventricular hypertrophy. No evidence of wall motion abnormality. Right ventricular systolic pressure of 9. Lipid panel was stable. Telemetry showed sinus bradycardia initially , with heart rate dropping to 40s. Midodrine stopped , and bradycardia resolved. Lipid panel was stable. Game Programer followed. Patient noted to have leukopenia and anemia . Anemia work-up was consistent with anemia of chronic disease. Hemoglobin and hematocrit were closely monitored with goal to keep hemoglobin above 7. No need for Epogen or iron at this time. Prior to discharge hemoglobin 11.8, hematocrit 36.6. No hemolysis noted. Leukopenia was likely due to history of chronic hepatitis B along with HIV. Splenomegaly and hepatomegaly were contributors as well. Prior to discharge WBC 3.9. Patient was counseled on abstinence from illicit street drugs. Patient clinically stabilized and was ready for discharge home. FINAL DIAGNOSES: Diarrhea, likely infectious-resolving HIV/AIDS, CD4 18 Acute renal failure -resolved Dehydration Hypokalemia -resolved Electrolyte abnormalities Hepatitis B Bradycardia- resolved Anemia of chronic disease Leukopenia Amphetamine abuse Balanitis DISCHARGE MEDICATIONS: See Medication Reconciliation list. DISCHARGE INSTRUCTIONS: Patient was discharged home with home health services. Follow up with primary care provider in one week. I have been assigned to dictate discharge summary for this account. I was not involved in the patient's management. Perla James NP Mar 29, 2019 13:07
== END 2019-03-28 16:30 | disposition home or self-care (01) | DRG 892 ==
LOC: EMR 02:48 → 2E 04:32 → EDBEDREQSVC 04:54 → EDBEDREQ 05:11
DX: A09 Infectious gastroenteritis and colitis, unspecified (principal); B20 Human immunodeficiency virus [HIV] disease; N17.9 Acute kidney failure, unspecified; E86.0 Dehydration; E87.6 Hypokalemia; E87.8 Other disorders of electrolyte and fluid balance, not elsewhere classified; B19.10 Unspecified viral hepatitis B without hepatic coma; R00.1 Bradycardia, unspecified; D63.8 Anemia in other chronic diseases classified elsewhere; F15.10 Other stimulant abuse, uncomplicated; N48.1 Balanitis
CPT/HCPCS: 36415; 71045; 76700; 80048; 80053; 80061; 80076; 80307; 81003; 82533; 82607; 82728; 82746; 83540; 83550; 83605; 83690; 83735; 83880; 84100; 84550; 85007; 85025; 86140; 86360; 86689; 86703; 86705; 86707; 86709; 86710; 86803; 87045; 87081; 87324; 87340; 87350; 87516; 89050; 93005; 93306; 96361; 96365; 96367; 99285; J8499